=== PATIENT | male | born 1945 | race Caucasian/White ===

== ENCOUNTER 2018-06-19 14:10 | Inpatient (IN) | payer MEDICARE, OTHER ==
[2018-06-14 10:48] VITALS: BP 136/74
--- NOTE | 2018-06-14 11:25 | PCM.EKG ---
[facility] Test Date: 2018-06-14 Test Time: 11:15:49 Pat Name: THEA ARTIS Department: Room: Gender: M Con[place] Operator: AWLVN : 1945 Requested By: ANA CRISTINA ADAN Order Number: [id number] Reading MD: Hayden Sheffield Measurements Intervals [place] Rate: 62 P: 50 [place]: 188 QRS: 37 QRSD: 78 T: 39 QT: 364 QTc: 369 Interpretive Statements Normal sinus rhythm Normal ECG Compared to ECG 01/23/2018 10:43:03 No significant changes Electronically Signed On 06-14-2018 13:48:29 LOCK PLATER by Hayden Sheffield Please click the below link to view image of tracing.
[2018-06-14 12:21] LABS: BASOPHIL % 0.3 % (0.0-0.2); BILIRUBIN,URINE NEGATIVE (NEGATIVE); EOSINOPHIL # 0.1 10^3/uL (0.0-0.2); EOSINOPHIL % 1.6 % (0.0-5.0); LYMPHOCYTES # 1.4 10^3/uL (1.0-4.8); LYMPHOCYTES % 19.9 % (24.0-44.0); MEAN CELL HGB 30.9 pg (26-34); MEAN CELL HGB CONCENTRATION 34.2 g/dL (33-37); MEAN CORP VOLUME 90.3 fL (78-100); MEAN PLATELET VOLUME 10.4 fL (7.8-11.0); MONOCYTES # 0.8 10^3/uL (0.3-0.8); MONOCYTES % 10.9 % (5.0-12.0); NEUTROPHIL # 4.6 10^3/uL (1.8-7.7); NEUTROPHILS % 67.2 % (41.0-85.0); RED CELL DISTRIBUTION WIDTH 13.3 % (11.5-14.5); UROBILINOGEN,URINE NORMAL (NEGATIVE); WHITE BLOOD CELL 6.9 10^3/uL (4.5-11.0)
[2018-06-14 12:22] LABS: APPEARANCE,URINE CLEAR (CLEAR); UA COLOR YELLOW (YELLOW)
[2018-06-14 12:36] LABS: CALCIUM 8.5 mg/dL (8.4-10.5); CARBON DIOXIDE 24.9 mmol/L (20.0-32)
[~2018-06-19] VITALS: Ht 175.3 cm; Wt 96.2 kg
[2018-06-19] VITALS (10 sets, daily range): BP systolic 135–196; BP diastolic 74–107
[2018-06-19] MEDS: LACTATED RINGERS 1,000 ML IV SCH (12:26)
[2018-06-19] MEDS: TYLENOL PO SCH ×2 (13:00→21:08)
[~2018-06-19 14:10] MED LIST: ANCEF ONE; DECADRON ONE; DILAUDID ONE; DIPRIVAN IV ONE; HYDR12.53 PO; IBUP200C8 PO; LIDOCAINE 2% VIAL ONE; LISI-414 PO; METR45CR2 TP; MONT10TA6 PO; NAROPIN 0.2% 40 MG/20 ML VIAL ONE; NEOSTIGMINE ONE; NEURONTIN ONE; NS 100ML 100 ML IV ONE; NS 250ML 250 ML IV ONE; NS 3000ML IRR IR ONE; PANT40TA3 PO; PRECEDEX IV ONE; SENSORCAINE 0.5% VIAL ONE; SODIUM CHLORIDE IR ONE; TORADOL ONE; TRANEXAMIC ACID IV ONE; TYLENOL PO ONE; TYLENOL PO SCH; ZEMURON IV ONE; ZOFRAN ONE
[2018-06-19] MEDS ORDERED: DUONEB 0.5 MG-3 MG/3 ML SOLN IH ONE (16:29)
[2018-06-19] MEDS ORDERED: DUONEB 0.5 MG-3 MG/3 ML SOLN IH STA (16:49)
[2018-06-19] MEDS ORDERED: CEPACOL SORE THROAT LOZENGE MM PRN (17:00)
[2018-06-19] MEDS ORDERED: SUBLIMAZE IV PRN (17:00)
[2018-06-19] MEDS ORDERED: TRANDATE IV PRN (17:00)
[2018-06-19] MEDS ORDERED: PHENERGAN IV PRN (17:00)
[2018-06-19] MEDS ORDERED: ZOFRAN IV PRN (17:00)
[2018-06-19] MEDS ORDERED: VENTOLIN IH PRN ×2 (17:00→20:00)
[2018-06-19] MEDS ORDERED: DILAUDID IV PRN ×2 (17:00)
[2018-06-19] MEDS ORDERED: LACTATED RINGERS 1,000 ML IV SCH (17:00)
[2018-06-19] MEDS ORDERED: BENADRYL IV PRN (17:00)
[2018-06-19] MEDS ORDERED: TRANDATE IV ONE (17:08)
--- NOTE | 2018-06-19 17:45 | NUR ---
ARRIVAL PT ARRIVED TO UNIT VIA BED, NO S/S OF DISTRESS NOTED. SPECIAL V/S STARTED. REPORT RECEIVED FROM SANDRA DESAI. ASSUMED CARE OF PT. CALL LIGHT WITHIN REACH. BED LOCKED AND LOW POSITION. FAMILY AT BEDSIDE. WILL CONT TO MONITOR.
[2018-06-19] MEDS: ULTRAM PO SCH (17:54)
--- NOTE | 2018-06-19 18:56 | DIREP ---
PROCEDURE:XRAY KNEE 2 VWS-RT COMPARISON:None. INDICATIONS:POST TOTAL RIGHT KNEE FINDINGS: BONES:Normal. JOINTS:Right knee arthroplasty. SOFT TISSUES:Skin andrew and subcutaneous emphysema. OTHER:Overlying bandage or brace. CONCLUSION:Right knee arthroplasty, reveals anatomic alignment and position. Dictated by: Humphrey Husain M.D. on 06/19/2018 at 06:50 PM
--- NOTE | 2018-06-19 19:22 | HPH ---
ADMIT DATE: 06/19/2018 CHIEF COMPLAINT: Painful right knee. HISTORY OF PRESENT ILLNESS: A 72-year-old male with a several year history of pain about the right knee secondary to osteoarthritis. He is no better with Motrin, multiple cortisone injections, Synvisc injections. He complains of pain with just household ambulation as well as locking and giving away about the knee. He cannot pursue some of his recreational activities such as hunting or walking for exercise because of severe pain about the right knee. MEDICATIONS: Include lisinopril 5 mg once a day, hydrochlorothiazide 12.5 mg once a day. Montelukast sodium 10 mg once a day. PAST MEDICAL HISTORY: Include hypertension. PAST SURGICAL HISTORY: Back surgery, cholecystectomy, prostatectomy, second back surgery in 2018. ALLERGIES: The patient has no known drug allergies. FAMILY HISTORY: Positive for Parkinson's. The patient's medical problems include hypertension. SOCIAL HISTORY: He is , lives in [place], does not drink, but he dips snuff. PHYSICAL EXAMINATION: GENERAL: Today shows that he is 5 feet 5 inches, weighs 200 pounds, healthy 72-year-old male, in no acute distress. HEENT: Within normal limits for his age. CHEST: Clear to auscultation. HEART: Regular rate and rhythm. No murmur. ABDOMEN: Soft, nontender, good bowel sounds. EXTREMITIES: Right knee has a 1+ effusion. He lacks 10 degrees of full extension and has 120 degrees of flexion. He has got good medial and lateral collateral ligament stability. NEUROLOGICAL: He is awake and alert. He is oriented x 3. His cranial nerves 2-12 are grossly intact. He has a preexisting right drop foot from previous back surgery. IMAGING STUDIES: His x-rays show that he has severe tcen-nq-iatk tricompartmental osteoarthritis about the right knee. ASSESSMENT: Osteoarthritis, right knee. Other diagnoses include hypertension and right foot drop. PLAN: The patient is being admitted for right total knee arthroplasty. The risks and hazards of the procedure have been reviewed with the patient. He understands risk involved and wants to proceed as planned. Chris Kang MD DR: MERLY/sarah JOB# [id number]
[2018-06-19] MEDS ORDERED: S-2 IH ONE (20:55)
[2018-06-19] MEDS ORDERED: S-2 IH STA (20:56)
[2018-06-19] MEDS ORDERED: TUMS ONE (20:59)
[2018-06-19] MEDS ORDERED: CELEBREX PO SCH (21:00)
[2018-06-19] MEDS: CELEBREX PO SCH (21:00)
[2018-06-19] MEDS: ULTRAM PO PRN (21:08)
[2018-06-19] MEDS: PROTONIX PO SCH (21:13)
[2018-06-19 21:15] LABS: HEMOGLOBIN 14.7 g/dL (13.9-16.3); MEAN CELL HGB 30.8 pg (26-34); MEAN CELL HGB CONCENTRATION 33.8 g/dL (33-37); MEAN CORP VOLUME 91.2 fL (78-100); MEAN PLATELET VOLUME 9.4 fL (7.8-11.0); RED CELL DISTRIBUTION WIDTH 13.2 % (11.5-14.5); WHITE BLOOD CELL 15.1 10^3/uL (4.5-11.0)
[2018-06-20 00:15] VITALS: BP 125/79
--- NOTE | 2018-06-20 01:29 | OPH ---
DATE OF SURGERY: 06/19/2018 PREOPERATIVE DIAGNOSIS: Osteoarthritis of the right knee. POSTOPERATIVE DIAGNOSIS: Osteoarthritis of the right knee. OPERATIVE PROCEDURE: Right total knee arthroplasty using Medacta Sphere knee, size 5 femur, size 5 tibia, 10 mm insert. All components were cemented. SURGEON: Chris Kang MD ANESTHESIA: General endotracheal. TOURNIQUET TIME: 62 minutes at 300 mmHg. BLOOD LOSS: 400 mL. DESCRIPTIVE INDICATIONS: The patient is a 72-year-old male, OA about the right knee, has failed conservative treatment including home exercises, bracing, anti-inflammatories, cortisone injections, Synvisc injections. He complains of locking about the knee as well as severe pain with just household ambulation. The x-rays show he has oply-xo-cyiq tricompartmentally about the right knee. DESCRIPTION OF PROCEDURE: The patient was placed on the operating table in the supine position. A general endotracheal anesthetic was induced without difficulty. Right lower extremity was padded and a tourniquet was applied. Right lower extremity was then sterilely prepped and draped. The leg was exsanguinated with an Esmarch and then the tourniquet was inflated to 300 mmHg. Knee was flexed to 90 degrees. An anterior incision was made. Full thickness flaps were developed medially and laterally and then a medial parapatellar arthrotomy was performed. The patella was deviated laterally. The medial and lateral meniscectomies were performed as well as removing anterior and posterior cruciate ligaments. The patient had the capsule and the MCL released around the posterior medial corner. The patient then had the mini femoral cutting guide placed about the distal femur. It was held into position with multiple pins. The distal femoral cut was made with the power saw. The patient then had the #2 ____ placed about the distal femur and held into position with multiple screws and pins. The anterior and posterior femoral cuts as well as the chamfer cuts were made. The patient had the tibia subluxed anteriorly. Medial and lateral meniscectomies were completed. The mini tibial cutting guide was placed about the proximal tibia and held into position with multiple pins. Tibial cut was then made with the power saw. The tibia was sized, it measured a size 5. The trial tibial component was held into position with multiple pins. Central drill hole was made and then we used the cruciate punch to stabilize the tibial trial component. The patient had a trial reduction done with a 5 femur, a 5 tibia, 10 mm insert. The knee went out into full extension. He had 120 degrees of flexion. There was excellent medial and lateral stability throughout and excellent tracking of the patella. The patella was everted. The osteophytes around the peripheral edges were trimmed. Peripheral edges were then cauterized. The final, medial, and lateral femoral drill holes were made. The femoral sulcus cut was made. The trial components were then all removed. The bone ends were copiously irrigated and dried and then a size 5 tibial component was cemented. A 10 mm insert was impacted into position and secured with an anterior screw. The size 5 femoral component was cemented. Once all the cement had hardened and excess cement was removed, then the tourniquet was released, the bleeding was controlled with the Aquamantys device. The capsule was closed with #2 PDS in interrupted bbehgn-ca-yzkhd manner. Subcutaneous was closed with running 2-0 Monocryl barbed. Skin was closed with andrew and an Aquacel dressing was applied, reinforced with 4 x 4's, cast padding, and Luke wrap. The patient was extubated in the operating room, sent to recovery in stable condition. Chris Kang MD DR: MERLY/sarah JOB# [id number]
[2018-06-20] MEDS: TYLENOL PO SCH ×4 (03:01→20:11)
[2018-06-20] MEDS: LACTATED RINGERS 1,000 ML IV SCH (03:02)
[2018-06-20] MEDS: DUONEB 0.5 MG-3 MG/3 ML SOLN IH SCH ×4 (03:18→21:28)
[2018-06-20] MEDS: ULTRAM PO SCH ×6 (04:00→20:00)
[2018-06-20 05:35] VITALS: BP 135/78
[2018-06-20 05:48] LABS: HEMOGLOBIN 13.2 g/dL (13.9-16.3); MEAN CELL HGB 30.5 pg (26-34); MEAN CELL HGB CONCENTRATION 33.4 g/dL (33-37); MEAN CORP VOLUME 91.2 fL (78-100); MEAN PLATELET VOLUME 9.8 fL (7.8-11.0); RED CELL DISTRIBUTION WIDTH 13.2 % (11.5-14.5); WHITE BLOOD CELL 12.6 10^3/uL (4.5-11.0)
[2018-06-20] MEDS: ULTRAM PO PRN ×2 (06:23→20:11)
--- NOTE | 2018-06-20 06:35 | NUR ---
STATUS URINE OUTPUT FOUND TO BE ONLY 250 THROUGHOUT THE NIGHT. 623ML FOUND TO BE IN BLADDER VIA BLADDER SCANNER. DR BRADSHAW NOTIFIED. PT REQUESTS TO NOT HAVE CATHETER PUT IN. DR BRADSHAW STATED HE WOULD ORDER FLOMAX.
--- NOTE | 2018-06-20 06:35 | PRM.CONS ---
Consultation Reason for Consult: Reason for Consultation: Medical management of HTN History of Present Illness History of Patient Comments Patient is a 72 M PMH of BPH, HTN, OA, Spinal Stenosis, and Polio (childhood) admitted following R TKA with Dr. Kang (Orthopedic Surgery). Medicine team consulted for medical management of comorbidities. Patient seen last night upon arrival to the floor and was having stridor/upper airway constriction 2/2 intubation for procedure. Patient was satting adequately. Patient given racemic epinephrine and Nebs for symptoms with improvement. He is very hoarse this morning but feels better. Patient hx/labs/imaging reviewed. Medications reconciled. Patient has poor urine output. Bladder scan shows over 600cc of fluid in bladder and last void just 50cc. Patient offered best but refused. Patient has no other complaints. Pain is controlled. Past Medical History 1. HTN 2. BPH 3. OA 4. Spnial Stenosis 5. Polio (child) Past Surgical History 1. R TKA 2. Back surgery for Spinal Stenosis 3. Prostate surgery 4. Tracheostomy 5. Cholecystectomy Family History: noncontributory Social History: uses smokeless tobacco, former smoker. no alcohol, no drug use. Review of Systems Constitutional: No: Fever, Chills Eyes: No: Vision change, Conjunctivae inflammation, Eyelid inflammation ENT: Other (hoarseness); No: Nose discharge, Nose congestion Respiratory: Cough, Wheezing; No: Shortness of breath, SOB with excertion Cardiovascular: No: Chest Pain, Palpitations, Edema Gastrointestinal: No: Nausea, Vomiting, Abdominal Pain, Diarrhea, Constipation Genitourinary: No Hematuria; Retention Musculoskeletal: No: neck pain, back pain Skin: No: Rash, Lesions, Jaundice, Bruising Neurological: No: Weakness, Numbness, Incoordination, Change in speech, Confusion, Seizures Allergies: Coded Allergies: No Known Allergies (Unverified , 06/14/18) Scheduled Hydrochlorothiazide (Hydrochlorothiazide), 1 CAP PO DAILY, (Reported) Lisinopril (Lisinopril), 1 TAB PO DAILY, (Reported) Metronidazole (Metrocream), 1 APPLIC TP BID, (Reported) Montelukast Sodium (Singulair), 1 TAB PO DAILY, (Reported) Scheduled PRN Ibuprofen (Advil), 600 MG PO BID PRN for PAIN, (Reported) Pantoprazole Sodium (Protonix), 1 TAB PO DAILY PRN for INDIGESTION, (Reported) VTE VTE Risk Total Score: >5 VTE Risk Score VTE Risk: Score 0-1 = Low Risk (Aggressive mobilization; early ambulation; no VTE prophylaxis required) Score 2: Moderate Risk (Intermittent/Pneumatic Compression Device OR Lovenox/Heparin/Coumadin) Score 3-4: High Risk (Intermittent/Pneumatic Compression Device AND Lovenox/Heparin/Coumadin) Score > or =5: Highest Risk (Intermittent/Pneumatic Compression Device AND Lovenox/Heparin/Coumadin) Assessment/Plan Assessment/Plan Assessment/Plan Patient is a 72 M PMH of BPH, HTN, OA, Spinal Stenosis, and Polio (childhood) admitted following R TKA with Dr. Kang (Orthopedic Surgery). Patient History: Alzheimer's disease 33 FATHER, , Age:87 Asthma V19 CHILD Hypertension 32 MOTHER, , Age:89 No known health problems G8 SISTER V19 CHILD V19 CHILD Parkinson's disease 33 FATHER, , Age:87 No Family History of: Cerebrovascular disorder Chronic obstructive pulmonary disease Congestive heart failure Diabetes insipidus Diabetes mellitus Plan 1. OA R knee: s/p TKA. Ortho managing, cont pain control and PT. 2. HTN: cont HCTZ/DIANA 3. BPH: will start flomax 4. COPD: cont Nebs, O2 support 5. PPx: PPI, Xarelto 6. Laryngeal irritation: 2/2 intubation and hx of Tracheostomy. Racemic epi ordered last night x 1. Cont nebs. O2 support SHELBI BRADSHAW MD Jun 20, 2018 06:35
--- NOTE | 2018-06-20 06:41 | NUR ---
REPORT REPORT RECEIVED FROM RUSTY DESAI ASSUMED CARE OF PT
[2018-06-20 07:04] VITALS: BP 151/87
[2018-06-20] MEDS: PROTONIX PO SCH (10:30)
[2018-06-20] MEDS: FLOMAX PO SCH (10:30)
[2018-06-20] MEDS: XARELTO PO SCH (10:30)
[2018-06-20] MEDS: HYDROCHLOROTHIAZIDE PO SCH (10:30)
[2018-06-20] MEDS: COLACE PO SCH (10:30)
[2018-06-20] MEDS: ZESTRIL PO SCH (10:31)
[2018-06-20] MEDS: SINGULAIR PO SCH (10:31)
[2018-06-20] MEDS: PEPCID PO SCH (10:31)
[2018-06-20] MEDS: CELEBREX PO SCH ×2 (10:32→20:10)
--- NOTE | 2018-06-20 11:16 | NUR ---
DISCHARGE PLAN CM VISITED WITH PATIENT AND SPOUSE REGARDING DISCHARGE PLAN. PATIENT STATED HE WAS PREVIOUSLY INDEPENDENT OF ADLS AND THAT HE STILL DRIVES. HE DOES LIVE AT HOME WITH HIS SPOUSE. HE DOES HAVE DME INCLUDING A SHOWER CHAIR AND HAS GRAB BARS IN HIS SHOWER. ORDER FOR WALKER WAS SENT TO [facility]. PATIENT STATED THAT IF HE NEEDS THERAPY HE WOULD LIKE TO GO TO [facility]. REFERRAL WAS SENT TO [facility] PATIENT DENIES ANY OTHER NEEDS OR RESOURCES AT THIS TIME. HE SAID I DON'T THING I NEED HOME HEALTH. DISCAHRGE GOAL IS FOR PT TO D/C HOME WITH SPOUSE AND OP-PT AT [facility]. CM WILL CONTINUE TO FOLLOW NEEDS.
--- NOTE | 2018-06-20 11:36 | NUR ---
Anesthesia Post Op Mr Brown had a Right TKA with a Right Femoral, Adductor Canal and a Right IPAK block. I visited with him and he rates his pain at a 0. He said he had issues earlier with ambulation and a weak right knee but he had his procedure very late in the day yesterday. The injection sites are under the dressing but offer no evidence of any infection. No apparent post anesthetic or post block sequelae noted.
[2018-06-20 11:51] VITALS: BP 136/81
[2018-06-20] MEDS ORDERED: NEURONTIN PO SCH (13:00)
[2018-06-20] MEDS ORDERED: NEURONTIN ONE (14:46)
[2018-06-20 17:25] VITALS: BP 143/74
--- NOTE | 2018-06-20 17:57 | NUR ---
STATUS PT REQUESTING MORE ULTRAM. DR ADAN NOTIFIED. ORDER RECEIVED FOR 50MG TRAMADOL PO OT AND STATES, "HE CAN HAVE 100MG PO TRAMADOL IN 2 HOURS."
[2018-06-20] MEDS ORDERED: ULTRAM PO ONE (18:00)
[2018-06-20 19:56] VITALS: BP 130/71
[2018-06-21] MEDS: ULTRAM PO PRN ×6 (00:09→21:04)
[2018-06-21 00:20] VITALS: BP 118/72
[2018-06-21] MEDS: TYLENOL PO SCH ×4 (01:00→19:00)
[2018-06-21] MEDS: ULTRAM PO SCH ×6 (04:00→20:00)
[2018-06-21 05:25] VITALS: BP 129/76
[2018-06-21] MEDS: DUONEB 0.5 MG-3 MG/3 ML SOLN IH SCH ×4 (05:30→20:08)
[2018-06-21 05:42] LABS: HEMOGLOBIN 12.2 g/dL (13.9-16.3); MEAN CELL HGB 30.5 pg (26-34); MEAN CELL HGB CONCENTRATION 33.4 g/dL (33-37); MEAN CORP VOLUME 91.3 fL (78-100); MEAN PLATELET VOLUME 9.7 fL (7.8-11.0); WHITE BLOOD CELL 8.6 10^3/uL (4.5-11.0)
[2018-06-21 05:44] LABS: CALCIUM 9.1 mg/dL (8.4-10.5); CARBON DIOXIDE 28.6 mmol/L (20.0-32)
[2018-06-21 08:00] VITALS: BP 117/65
[2018-06-21] MEDS: HYDROCHLOROTHIAZIDE PO SCH (08:21)
[2018-06-21] MEDS: FLOMAX PO SCH (08:21)
[2018-06-21] MEDS: XARELTO PO SCH (08:21)
[2018-06-21] MEDS: COLACE PO SCH (08:21)
[2018-06-21] MEDS: ZESTRIL PO SCH (08:22)
[2018-06-21] MEDS: SINGULAIR PO SCH (08:22)
[2018-06-21] MEDS: PROTONIX PO SCH (08:22)
[2018-06-21] MEDS: PEPCID PO SCH (08:22)
[2018-06-21] MEDS: CELEBREX PO SCH ×2 (08:23→21:04)
--- NOTE | 2018-06-21 08:54 | PRM.PN ---
Subjective Subjective Date: Jun 21, 2018 Time: 08:53 Subjective Awake and alert Pain ok Afebrile VSS HGB 13.2 Cont with PT More pain today VSS Afebrile Hgb 12.2 postop anemia from surgery expected Cont with PT Patient History: Alzheimer's disease 33 FATHER, , Age:87 Asthma V19 CHILD Hypertension 32 MOTHER, , Age:89 No known health problems G8 SISTER V19 CHILD V19 CHILD Parkinson's disease 33 FATHER, , Age:87 No Family History of: Cerebrovascular disorder Chronic obstructive pulmonary disease Congestive heart failure Diabetes insipidus Diabetes mellitus VTE VTE Risk Total Score: >5 VTE Risk Score VTE Risk: Score 0-1 = Low Risk (Aggressive mobilization; early ambulation; no VTE prophylaxis required) Score 2: Moderate Risk (Intermittent/Pneumatic Compression Device OR Lovenox/Heparin/Coumadin) Score 3-4: High Risk (Intermittent/Pneumatic Compression Device AND Lovenox/Heparin/Coumadin) Score > or =5: Highest Risk (Intermittent/Pneumatic Compression Device AND Lovenox/Heparin/Coumadin) Review of Systems Constitutional: No: Fever, Chills Eyes: No: Vision change, Conjunctivae inflammation, Eyelid inflammation ENT: Other (hoarseness); No: Nose discharge, Nose congestion Respiratory: Cough, Wheezing; No: Shortness of breath, SOB with excertion Cardiovascular: No: Chest Pain, Palpitations, Edema Gastrointestinal: No: Nausea, Vomiting, Abdominal Pain, Diarrhea, Constipation Genitourinary: No Hematuria; Retention Musculoskeletal: No: neck pain, back pain Skin: No: Rash, Lesions, Jaundice, Bruising Neurological: No: Weakness, Numbness, Incoordination, Change in speech, Confusion, Seizures Allergies: Coded Allergies: No Known Allergies (Unverified , 06/14/18) Scheduled Hydrochlorothiazide (Hydrochlorothiazide), 1 CAP PO DAILY, (Reported) Lisinopril (Lisinopril), 1 TAB PO DAILY, (Reported) Metronidazole (Metrocream), 1 APPLIC TP BID, (Reported) Montelukast Sodium (Singulair), 1 TAB PO DAILY, (Reported) Scheduled PRN Ibuprofen (Advil), 600 MG PO BID PRN for PAIN, (Reported) Pantoprazole Sodium (Protonix), 1 TAB PO DAILY PRN for INDIGESTION, (Reported) Objective Vitals and I/O Vital Sign - Last 24 Hours 06/19/18 06/19/18 06/19/18 06/19/18 12:10 12:10 12:58 13:04 Temp 98.6 98.6 Pulse 93 73 73 Resp 16 18 16 B/P (MAP) 140/81 (100) 145/86 (105) 135/74 (94) Pulse Ox 95 97 98 O2 Delivery Room Air Room Air Nasal Canula Nasal Canula O2 Flow Rate 2 2 06/19/18 06/19/18 06/19/18 06/19/18 16:22 16:22 16:32 16:37 Temp 98.3 98.6 98.3 98.6 Pulse 83 83 88 Resp 18 18 18 B/P (MAP) 149/90 (109) 182/96 (124) Pulse Ox 100 100 100 O2 Delivery Non-Rebreather Non-Rebreather O2 Flow Rate 10 10 5 06/19/18 06/19/18 06/19/18 06/19/18 16:52 16:53 17:07 17:22 Temp 98.5 97.9 98.0 98.5 97.9 98.0 Pulse 91 87 89 78 Resp 18 18 18 18 B/P (MAP) 185/93 (123) 196/107 (136) 169/95 (119) Pulse Ox 99 100 99 98 O2 Delivery Non-Rebreather Nasal Canula Nasal Canula O2 Flow Rate 5 3 2 06/19/18 06/19/18 06/19/18 06/19/18 17:45 18:01 18:36 20:00 Temp 97.5 97.9 97.5 97.9 Pulse 77 63 Resp 18 22 B/P (MAP) 144/91 (108) 147/85 (105) Pulse Ox 99 98 99 O2 Delivery Nasal Canula Nasal Cannula Nasal Canula O2 Flow Rate 2 2.00 2.00 06/19/18 06/19/18 06/19/18 06/20/18 21:06 21:07 21:07 00:15 Temp 98.2 98.2 Pulse 98 92 61 Resp 18 22 B/P (MAP) 125/79 (94) Pulse Ox 97 98 95 O2 Delivery Nasal Cannula Nasal Canula O2 Flow Rate 2.00 2.00 2/12/19 06/20/18 06/20/18 06/20/18 02:33 03:19 03:19 05:35 Temp 98.6 98.6 Pulse 56 59 62 Resp 18 16 22 B/P (MAP) 135/78 (97) Pulse Ox 93 98 95 O2 Delivery Nasal Cannula Nasal Canula O2 Flow Rate 2.00 2.00 06/20/18 06/20/18 06/20/18 06/20/18 07:04 09:53 09:55 09:56 Temp 97.7 97.7 Pulse 70 68 70 67 Resp 20 12 20 12 B/P (MAP) 151/87 (108) Pulse Ox 96 97 96 97 O2 Delivery Room Air Room Air FiO2 21 06/20/18 06/20/18 06/20/18 10:30 10:31 10:36 B/P (MAP) 151/87 151/87 O2 Delivery Room Air Intake and Output 06/19/18 06/19/18 06/20/18 15:00 23:00 07:00 Intake Total 500 ml 5772 ml 500 ml Output Total 250 ml Balance 500 ml 5772 ml 250 ml All Results(Lab/Rad) Laboratory Tests Test 06/19/18 21:10 06/20/18 05:00 White Blood Count 15.1 10^3/uL 12.6 10^3/uL Red Blood Count 4.77 10^6/uL 4.33 10^6/uL Hemoglobin 14.7 g/dL 13.2 g/dL Hematocrit 43.5 % 39.5 % Mean Corpuscular Volume 91.2 fL 91.2 fL Mean Corpuscular Hemoglobin 30.8 pg 30.5 pg Mean Corpuscular Hemoglobin Concent 33.8 g/dL 33.4 g/dL Red Cell Distribution Width 13.2 % 13.2 % Platelet Count 195 10^3/uL 195 10^3/uL Mean Platelet Volume 9.4 fL 9.8 fL Current Medications Medications (Trade) Dose Ordered Sig/Sophy Route PRN Reason Start Time Stop Time Status Last Admin Dose Admin Sodium Chloride 250 ml @ ud STK-MED ONCE IV 06/19/18 05:32 06/19/18 05:35 DC Cefazolin Sodium (Ancef) 1 gm STK-MED ONCE .ROUTE 06/19/18 05:32 06/19/18 05:36 DC Neostigmine Methylsulfate (Neostigmine) 10 mg STK-MED ONCE .ROUTE 06/19/18 06:49 06/19/18 06:52 DC Ondansetron HCl (Zofran) 4 mg STK-MED ONCE .ROUTE 06/19/18 06:49 06/19/18 06:52 DC Ketorolac Tromethamine (Toradol) 30 mg STK-MED ONCE .ROUTE 06/19/18 06:49 06/19/18 06:52 DC Rocuronium [place] (Zemuron) 100 mg STK-MED ONCE IV 06/19/18 06:49 06/19/18 06:52 DC Hydromorphone HCl (Dilaudid) 2 mg STK-MED ONCE .ROUTE 06/19/18 06:49 06/19/18 06:52 DC Propofol (Diprivan) 200 mg STK-MED ONCE IV 06/19/18 06:49 06/19/18 06:52 DC Dexamethasone Sodium Phosphate (Decadron) 20 mg STK-MED ONCE .ROUTE 06/19/18 06:50 06/19/18 06:53 DC Bupivacaine HCl (Sensorcaine 0.5% Vial) 5 mg STK-MED ONCE .ROUTE 06/19/18 06:50 06/19/18 06:53 DC Ropivacaine (Naropin 0.2% 40 Mg/20 ml Vial) 2 mg STK-MED ONCE .ROUTE 06/19/18 06:50 06/19/18 06:53 DC Lidocaine HCl (Lidocaine 2% Vial) 500 mg STK-MED ONCE .ROUTE 06/19/18 06:50 06/19/18 06:54 DC Dexmedetomidine HCl (Precedex) 200 mcg STK-MED ONCE IV 06/19/18 06:50 06/19/18 06:54 DC Tranexamic Acid (Tranexamic Acid) 1,000 mg STK-MED ONCE IV 06/19/18 07:24 06/19/18 07:27 DC Sodium Chloride (Sodium Chloride) 1,000 ml STK-MED ONCE IR 06/19/18 09:59 06/19/18 10:02 DC Sodium Chloride 100 ml @ ud STK-MED ONCE IV 06/19/18 09:59 06/19/18 10:02 DC Sodium Chloride 250 ml @ ud STK-MED ONCE IV 06/19/18 09:59 06/19/18 10:02 DC Sodium Chloride (NS 3000ml Irr) 3,000 ml STK-MED ONCE IR 06/19/18 09:59 06/19/18 10:02 DC Acetaminophen (Tylenol) 500 mg STK-MED ONCE PO 06/19/18 12:37 06/19/18 12:41 DC Gabapentin (Neurontin) 400 mg STK-MED ONCE .ROUTE 06/19/18 12:37 06/19/18 12:41 DC Acetaminophen (Tylenol) 1,000 mg OT PO 06/19/18 13:00 06/19/18 20:53 DC 06/19/18 12:49 Acetaminophen (Tylenol) 1,000 mg Q6H PO 06/19/18 13:00 07/19/18 12:59 06/20/18 03:01 Celecoxib (Celebrex) 200 mg Q12HR PO 06/19/18 21:00 06/19/18 21:00 DC Gabapentin (Neurontin) 400 mg Q24HRS PO 06/20/18 13:00 06/20/18 13:01 Sodium Chloride (Sodium Chloride) 1,000 ml STK-MED ONCE IR 06/19/18 13:25 06/19/18 13:28 DC Sodium Chloride 250 ml @ ud STK-MED ONCE IV 06/19/18 13:25 06/19/18 13:29 DC Sodium Chloride (NS 3000ml Irr) 3,000 ml STK-MED ONCE IR 06/19/18 13:25 06/19/18 13:29 DC Sodium Chloride 100 ml @ ud STK-MED ONCE IV 06/19/18 13:26 06/19/18 13:29 DC Albuterol/ Ipratropium (Duoneb 0.5 Mg-3 Mg/3 ml Soln) 3 ml STK-MED ONCE IH 06/19/18 16:29 06/19/18 16:32 DC Hydromorphone HCl (Dilaudid) 0.2 mg Q5MIN PRN IV PAIN MILD 06/19/18 17:00 06/20/18 08:26 DC 06/19/18 16:48 Fentanyl Citrate (Sublimaze) 12.5 mcg Q5MIN PRN IV PAIN 06/19/18 17:00 06/20/18 16:59 Ondansetron HCl (Zofran) 4 mg PRN PRN IV nv 06/19/18 17:00 06/19/18 20:57 DC Promethazine HCl (Phenergan) 6.25 mg PRN PRN IV NAUSEA / VOMITING 06/19/18 17:00 06/19/18 20:56 DC Diphenhydramine HCl (Benadryl) 25 mg Q5MIN PRN IV NAUSEA / VOMITING 06/19/18 17:00 06/19/18 20:56 DC Albuterol Sulfate (Ventolin) 2.5 mg OT PRN IH WHEEZING 06/19/18 17:00 06/19/18 20:54 DC Labetalol HCl (Trandate) 5 mg Q5MIN PRN IV HYPERTENSION 06/19/18 17:00 07/19/18 16:59 06/19/18 17:14 Tramadol HCl (Ultram) 50 mg Q4HR PO 06/19/18 20:00 07/19/18 19:59 06/20/18 10:32 Tramadol HCl (Ultram) 100 mg Q4HR PRN PO SEVERE PAIN 06/19/18 17:00 07/19/18 16:59 06/20/18 06:23 Rivaroxaban (Xarelto) 10 mg DAILY PO 06/20/18 09:00 07/20/18 08:59 06/20/18 10:30 Docusate Sodium (Colace) 100 mg DAILY PO 06/20/18 09:00 07/20/18 08:59 06/20/18 10:30 Throat Lozenges (Cepacol Sore Throat Lozenge) 1 each PRN PRN MM SORE THROAT 06/19/18 17:00 07/19/18 16:59 Famotidine (Pepcid) 20 mg DAILY PO 06/20/18 09:00 07/20/18 08:59 06/20/18 10:31 Celecoxib (Celebrex) 200 mg BID PO 06/19/18 21:00 07/19/18 20:59 06/20/18 10:32 Hydromorphone HCl (Dilaudid) 3 mg Q4H PRN IV PAIN 8-10 06/19/18 17:00 07/19/18 16:59 Ondansetron HCl (Zofran) 4 mg Q4H PRN IV NAUSEA / VOMITING 06/19/18 17:00 07/19/18 16:59 Albuterol/ Ipratropium (Duoneb 0.5 Mg-3 Mg/3 ml Soln) 3 ml STAT STAT IH 06/19/18 16:49 06/19/18 20:51 DC 06/19/18 16:54 Labetalol HCl (Trandate) 20 mg STK-MED ONCE IV 06/19/18 17:08 06/19/18 17:11 DC Albuterol Sulfate (Ventolin) 2.5 mg RTQ4 PRN IH WHEEZING 06/19/18 20:00 07/19/18 19:59 Hydrochlorothiazide (Hydrochlorothiazide) 12.5 mg DAILY PO 06/20/18 09:00 07/20/18 08:59 06/20/18 10:30 Lisinopril (Zestril) 5 mg DAILY PO 06/20/18 09:00 07/20/18 08:59 06/20/18 10:31 Montelukast Sodium (Singulair) 10 mg DAILY PO 06/20/18 09:00 07/20/18 08:59 06/20/18 10:31 Pantoprazole Sodium (Protonix) 40 mg DAILY PO 06/19/18 21:00 07/19/18 20:59 06/20/18 10:30 Epinephrine (S-2) 1 each STAT STAT IH 06/19/18 20:56 06/19/18 20:58 DC 06/19/18 21:02 Albuterol/ Ipratropium (Duoneb 0.5 Mg-3 Mg/3 ml Soln) 3 ml RTQ6H IH 06/19/18 21:00 07/19/18 20:59 06/20/18 09:52 Epinephrine (S-2) 1 each STK-MED ONCE IH 06/19/18 20:55 06/19/18 20:59 DC Calcium Carbonate/ Glycine (Tums) 500 mg STK-MED ONCE .ROUTE 06/19/18 20:59 06/19/18 21:02 DC Tamsulosin HCl (Flomax) 0.4 mg DAILY PO 06/20/18 09:00 07/20/18 08:59 06/20/18 10:30 Course Sepsis Screening Results: Posi: NEGATIVE Sepsis Qualifier/Stage: NO DEFINITE RISK Duration or Total Time Spent w: 20 Vitals & review Data Vital Sign - Last 24 Hours 06/19/18 06/19/18 06/19/18 06/19/18 12:10 12:10 12:58 13:04 Temp 98.6 98.6 Pulse 93 73 73 Resp 16 18 16 B/P (MAP) 140/81 (100) 145/86 (105) 135/74 (94) Pulse Ox 95 97 98 O2 Delivery Room Air Room Air Nasal Canula Nasal Canula O2 Flow Rate 2 2 06/19/18 06/19/18 06/19/18 06/19/18 16:22 16:22 16:32 16:37 Temp 98.3 98.6 98.3 98.6 Pulse 83 83 88 Resp 18 18 18 B/P (MAP) 149/90 (109) 182/96 (124) Pulse Ox 100 100 100 O2 Delivery Non-Rebreather Non-Rebreather O2 Flow Rate 10 10 5 06/19/18 06/19/18 06/19/18 06/19/18 16:52 16:53 17:07 17:22 Temp 98.5 97.9 98.0 98.5 97.9 98.0 Pulse 91 87 89 78 Resp 18 18 18 18 B/P (MAP) 185/93 (123) 196/107 (136) 169/95 (119) Pulse Ox 99 100 99 98 O2 Delivery Non-Rebreather Nasal Canula Nasal Canula O2 Flow Rate 5 3 2 06/19/18 06/19/18 06/19/18 06/19/18 17:45 18:01 18:36 20:00 Temp 97.5 97.9 97.5 97.9 Pulse 77 63 Resp 17 18 22 B/P (MAP) 144/91 (108) 147/85 (105) Pulse Ox 99 98 99 O2 Delivery Nasal Canula Nasal Cannula Nasal Canula O2 Flow Rate 2 2.00 2.00 06/19/18 06/19/18 06/19/18 06/20/18 21:06 21:07 21:07 00:15 Temp 98.2 98.2 Pulse 98 92 61 Resp 18 18 22 B/P (MAP) 125/79 (94) Pulse Ox 97 98 95 O2 Delivery Nasal Cannula Nasal Canula O2 Flow Rate 2.00 2.00 06/20/18 06/20/18 06/20/18 06/20/18 02:33 03:19 03:19 05:35 Temp 98.6 98.6 Pulse 56 59 62 Resp 18 16 22 B/P (MAP) 135/78 (97) Pulse Ox 93 98 95 O2 Delivery Nasal Cannula Nasal Canula O2 Flow Rate 2.00 2.00 06/20/18 06/20/18 06/20/18 06/20/18 07:04 09:53 09:55 09:56 Temp 97.7 97.7 Pulse 70 68 70 67 Resp 20 12 20 12 B/P (MAP) 151/87 (108) Pulse Ox 96 97 96 97 O2 Delivery Room Air Room Air FiO2 21 06/20/18 06/20/18 06/20/18 10:30 10:31 10:36 B/P (MAP) 151/87 151/87 O2 Delivery Room Air Intake and Output 06/19/18 06/19/18 06/20/18 15:00 23:00 07:00 Intake Total 500 ml 5772 ml 500 ml Output Total 250 ml Balance 500 ml 5772 ml 250 ml Laboratory Tests Test 06/19/18 21:10 06/20/18 05:00 White Blood Count 15.1 10^3/uL 12.6 10^3/uL Red Blood Count 4.77 10^6/uL 4.33 10^6/uL Hemoglobin 14.7 g/dL 13.2 g/dL Hematocrit 43.5 % 39.5 % Mean Corpuscular Volume 91.2 fL 91.2 fL Mean Corpuscular Hemoglobin 30.8 pg 30.5 pg Mean Corpuscular Hemoglobin Concent 33.8 g/dL 33.4 g/dL Red Cell Distribution Width 13.2 % 13.2 % Platelet Count 195 10^3/uL 195 10^3/uL Mean Platelet Volume 9.4 fL 9.8 fL Current Medications Medications (Trade) Dose Ordered Sig/Sophy PRN Reason Start Time Stop Time Status Last Admin Acetaminophen (Tylenol) 1,000 mg Q6H 06/19/18 13:00 07/19/18 12:59 06/20/18 03:01 Albuterol Sulfate (Ventolin) 2.5 mg RTQ4 PRN WHEEZING 06/19/18 20:00 3/13/19 19:59 Albuterol/ Ipratropium (Duoneb 0.5 Mg-3 Mg/3 ml Soln) 3 ml RTQ6H 06/19/18 21:00 07/19/18 20:59 06/20/18 09:52 Celecoxib (Celebrex) 200 mg BID 06/19/18 21:00 07/19/18 20:59 06/20/18 10:32 Docusate Sodium (Colace) 100 mg DAILY 06/20/18 09:00 07/20/18 08:59 06/20/18 10:30 Famotidine (Pepcid) 20 mg DAILY 06/20/18 09:00 07/20/18 08:59 06/20/18 10:31 Fentanyl Citrate (Sublimaze) 12.5 mcg Q5MIN PRN PAIN 06/19/18 17:00 06/20/18 16:59 Gabapentin (Neurontin) 400 mg Q24HRS 06/20/18 13:00 06/20/18 13:01 Hydrochlorothiazide (Hydrochlorothiazide) 12.5 mg DAILY 06/20/18 09:00 07/20/18 08:59 06/20/18 10:30 Hydromorphone HCl (Dilaudid) 3 mg Q4H PRN PAIN 8-10 06/19/18 17:00 07/19/18 16:59 Labetalol HCl (Trandate) 5 mg Q5MIN PRN HYPERTENSION 06/19/18 17:00 07/19/18 16:59 06/19/18 17:14 Lisinopril (Zestril) 5 mg DAILY 06/20/18 09:00 07/20/18 08:59 06/20/18 10:31 Montelukast Sodium (Singulair) 10 mg DAILY 06/20/18 09:00 07/20/18 08:59 06/20/18 10:31 Ondansetron HCl (Zofran) 4 mg Q4H PRN NAUSEA / VOMITING 06/19/18 17:00 07/19/18 16:59 Pantoprazole Sodium (Protonix) 40 mg DAILY 06/19/18 21:00 07/19/18 20:59 06/20/18 10:30 Rivaroxaban (Xarelto) 10 mg DAILY 06/20/18 09:00 07/20/18 08:59 06/20/18 10:30 Tamsulosin HCl (Flomax) 0.4 mg DAILY 06/20/18 09:00 07/20/18 08:59 06/20/18 10:30 Throat Lozenges (Cepacol Sore Throat Lozenge) 1 each PRN PRN SORE THROAT 06/19/18 17:00 07/19/18 16:59 Tramadol HCl (Ultram) 50 mg Q4HR 06/19/18 20:00 07/19/18 19:59 06/20/18 10:32 Tramadol HCl (Ultram) 100 mg Q4HR PRN SEVERE PAIN 06/19/18 17:00 07/19/18 16:59 06/20/18 06:23 Sepsis Infection Criteria Pres: None LEVEL 1 SEPSIS INFECTION CRITE: Recent Invasive Procedure LEVEL 2-SIRS (LIST ALL THAT AP: RR>20/min O2 Sat by Pulse Oximetry: 98 Oxygen Flow Rate: 2.00 Assessment/Plan Assessment/Plan Assessment/Plan 1. OA R knee: s/p TKA. Ortho managing, cont pain control and PT. 2. HTN: cont HCTZ/DIANA 3. BPH: will start flomax 4. COPD: cont Nebs, O2 support 5. PPx: PPI, Xarelto 6. Laryngeal irritation: 2/2 intubation and hx of Tracheostomy. Racemic epi ordered last night x 1. Cont nebs. O2 support Plan 1. OA R knee: s/p TKA. Ortho managing, cont pain control and PT. 2. HTN: cont HCTZ/DIANA 3. BPH: will start flomax 4. COPD: cont Nebs, O2 support 5. PPx: PPI, Xarelto 6. Laryngeal irritation: 2/2 intubation and hx of Tracheostomy. Racemic epi ordered last night x 1. Cont nebs. O2 support ANA CRISTINA ADAN MD Jun 21, 2018 08:54
[2018-06-21] MEDS: LACTATED RINGERS 1,000 ML IV SCH (11:23)
[2018-06-21] MEDS ORDERED: ULTRAM ONE (11:26)
[2018-06-21] MEDS ORDERED: MUCINEX PO ONE (13:04)
[2018-06-21 14:30] VITALS: BP 126/72
[2018-06-21] MEDS: MUCOMYST HHN SCH ×2 (15:00→20:07)
--- NOTE | 2018-06-21 15:17 | NUR ---
MUCO NOT GIVEN AT THIS TIME DUE TO 1500 TX ALREADY GIVEN AND SHOULD BE GIVEN WITH DUONEB, WILL START WITH NEXT TX
[2018-06-21 16:28] VITALS: BP 121/65
--- NOTE | 2018-06-21 17:47 | PRM.PN ---
Subjective Subjective Date: Jun 21, 2018 Time: 17:44 Subjective feeling a little better. Good pain control. Tolerating oral intake. Working with physical therapy. Patient History: Alzheimer's disease 33 FATHER, , Age:87 Asthma V19 CHILD Hypertension 32 MOTHER, , Age:89 No known health problems G8 SISTER V19 CHILD V19 CHILD Parkinson's disease 33 FATHER, , Age:87 No Family History of: Cerebrovascular disorder Chronic obstructive pulmonary disease Congestive heart failure Diabetes insipidus Diabetes mellitus VTE VTE Risk Total Score: >5 VTE Risk Score VTE Risk: Score 0-1 = Low Risk (Aggressive mobilization; early ambulation; no VTE prophylaxis required) Score 2: Moderate Risk (Intermittent/Pneumatic Compression Device OR Lovenox/Heparin/Coumadin) Score 3-4: High Risk (Intermittent/Pneumatic Compression Device AND Lovenox/Heparin/Coumadin) Score > or =5: Highest Risk (Intermittent/Pneumatic Compression Device AND Lovenox/Heparin/Coumadin) Review of Systems Constitutional: No: Fever, Chills Eyes: No: Vision change, Conjunctivae inflammation, Eyelid inflammation ENT: Other (hoarseness); No: Nose discharge, Nose congestion Respiratory: Cough, Wheezing; No: Shortness of breath, SOB with excertion Cardiovascular: No: Chest Pain, Palpitations, Edema Gastrointestinal: No: Nausea, Vomiting, Abdominal Pain, Diarrhea, Constipation Genitourinary: No Hematuria; Retention Musculoskeletal: No: neck pain, back pain Skin: No: Rash, Lesions, Jaundice, Bruising Neurological: No: Weakness, Numbness, Incoordination, Change in speech, Confusion, Seizures Allergies: Coded Allergies: No Known Allergies (Unverified , 06/14/18) Scheduled Hydrochlorothiazide (Hydrochlorothiazide), 1 CAP PO DAILY, (Reported) Lisinopril (Lisinopril), 1 TAB PO DAILY, (Reported) Metronidazole (Metrocream), 1 APPLIC TP BID, (Reported) Montelukast Sodium (Singulair), 1 TAB PO DAILY, (Reported) Scheduled PRN Ibuprofen (Advil), 600 MG PO BID PRN for PAIN, (Reported) Pantoprazole Sodium (Protonix), 1 TAB PO DAILY PRN for INDIGESTION, (Reported) Objective Vitals and I/O Vital Sign - Last 24 Hours 06/19/18 06/19/18 06/19/18 2/11/19 12:10 12:10 12:58 13:04 Temp 98.6 98.6 Pulse 93 73 73 Resp 16 18 16 B/P (MAP) 140/81 (100) 145/86 (105) 135/74 (94) Pulse Ox 95 97 98 O2 Delivery Room Air Room Air Nasal Canula Nasal Canula O2 Flow Rate 2 2 06/19/18 06/19/18 06/19/18 06/19/18 16:22 16:22 16:32 16:37 Temp 98.3 98.6 98.3 98.6 Pulse 83 83 88 Resp 18 18 18 B/P (MAP) 149/90 (109) 182/96 (124) Pulse Ox 100 100 100 O2 Delivery Non-Rebreather Non-Rebreather O2 Flow Rate 10 10 5 06/19/18 06/19/18 06/19/18 06/19/18 16:52 16:53 17:07 17:22 Temp 98.5 97.9 98.0 98.5 97.9 98.0 Pulse 91 87 89 78 Resp 18 18 18 18 B/P (MAP) 185/93 (123) 196/107 (136) 169/95 (119) Pulse Ox 99 100 99 98 O2 Delivery Non-Rebreather Nasal Canula Nasal Canula O2 Flow Rate 5 3 2 06/19/18 06/19/18 06/19/18 06/19/18 17:45 18:01 18:36 20:00 Temp 97.5 97.9 97.5 97.9 Pulse 77 63 Resp 22 B/P (MAP) 144/91 (108) 147/85 (105) Pulse Ox 99 98 99 O2 Delivery Nasal Canula Nasal Cannula Nasal Canula O2 Flow Rate 2 2.00 2.00 06/19/18 06/19/18 06/19/18 06/20/18 21:06 21:07 21:07 00:15 Temp 98.2 98.2 Pulse 98 92 61 Resp 22 B/P (MAP) 125/79 (94) Pulse Ox 97 98 95 O2 Delivery Nasal Cannula Nasal Canula O2 Flow Rate 2.00 2.00 06/20/18 06/20/18 06/20/18 06/20/18 02:33 03:19 03:19 05:35 Temp 98.6 98.6 Pulse 56 59 62 Resp 18 16 22 B/P (MAP) 135/78 (97) Pulse Ox 93 98 95 O2 Delivery Nasal Cannula Nasal Canula O2 Flow Rate 2.00 2.00 06/20/18 06/20/18 06/20/18 06/20/18 07:04 09:53 09:55 09:56 Temp 97.7 97.7 Pulse 70 68 70 67 Resp 20 12 20 12 B/P (MAP) 151/87 (108) Pulse Ox 96 97 96 97 O2 Delivery Room Air Room Air FiO2 21 06/20/18 06/20/18 06/20/18 10:30 10:31 10:36 B/P (MAP) 151/87 151/87 O2 Delivery Room Air Intake and Output 06/19/18 06/19/18 06/20/18 15:00 23:00 07:00 Intake Total 500 ml 5772 ml 500 ml Output Total 250 ml Balance 500 ml 5772 ml 250 ml General: Alert, Oriented X3, Cooperative, No acute distress Neck: Supple, No JVD Lungs: Clear to auscultation Heart: Regular rate, Normal S1, Normal S2, No murmurs Abdomen: Normal bowel sounds, Soft, No tenderness, No masses Neuro: Normal gait, Normal speech, Strength at 5/5 X4 ext, Normal tone, Sensation intact All Results(Lab/Rad) Laboratory Tests Test 06/19/18 21:10 06/20/18 05:00 White Blood Count 15.1 10^3/uL 12.6 10^3/uL Red Blood Count 4.77 10^6/uL 4.33 10^6/uL Hemoglobin 14.7 g/dL 13.2 g/dL Hematocrit 43.5 % 39.5 % Mean Corpuscular Volume 91.2 fL 91.2 fL Mean Corpuscular Hemoglobin 30.8 pg 30.5 pg Mean Corpuscular Hemoglobin Concent 33.8 g/dL 33.4 g/dL Red Cell Distribution Width 13.2 % 13.2 % Platelet Count 195 10^3/uL 195 10^3/uL Mean Platelet Volume 9.4 fL 9.8 fL Current Medications Medications (Trade) Dose Ordered Sig/Sophy Route PRN Reason Start Time Stop Time Status Last Admin Dose Admin Sodium Chloride 250 ml @ ud STK-MED ONCE IV 06/19/18 05:32 06/19/18 05:35 DC Cefazolin Sodium (Ancef) 1 gm STK-MED ONCE .ROUTE 06/19/18 05:32 06/19/18 05:36 DC Neostigmine Methylsulfate (Neostigmine) 10 mg STK-MED ONCE .ROUTE 06/19/18 06:49 06/19/18 06:52 DC Ondansetron HCl (Zofran) 4 mg STK-MED ONCE .ROUTE 06/19/18 06:49 06/19/18 06:52 DC Ketorolac Tromethamine (Toradol) 30 mg STK-MED ONCE .ROUTE 06/19/18 06:49 06/19/18 06:52 DC Rocuronium [place] (Zemuron) 100 mg STK-MED ONCE IV 06/19/18 06:49 06/19/18 06:52 DC Hydromorphone HCl (Dilaudid) 2 mg STK-MED ONCE .ROUTE 06/19/18 06:49 06/19/18 06:52 DC Propofol (Diprivan) 200 mg STK-MED ONCE IV 06/19/18 06:49 06/19/18 06:52 DC Dexamethasone Sodium Phosphate (Decadron) 20 mg STK-MED ONCE .ROUTE 06/19/18 06:50 06/19/18 06:53 DC Bupivacaine HCl (Sensorcaine 0.5% Vial) 5 mg STK-MED ONCE .ROUTE 06/19/18 06:50 06/19/18 06:53 DC Ropivacaine (Naropin 0.2% 40 Mg/20 ml Vial) 2 mg STK-MED ONCE .ROUTE 06/19/18 06:50 06/19/18 06:53 DC Lidocaine HCl (Lidocaine 2% Vial) 500 mg STK-MED ONCE .ROUTE 06/19/18 06:50 06/19/18 06:54 DC Dexmedetomidine HCl (Precedex) 200 mcg STK-MED ONCE IV 06/19/18 06:50 06/19/18 06:54 DC Tranexamic Acid (Tranexamic Acid) 1,000 mg STK-MED ONCE IV 06/19/18 07:24 06/19/18 07:27 DC Sodium Chloride (Sodium Chloride) 1,000 ml STK-MED ONCE IR 06/19/18 09:59 06/19/18 10:02 DC Sodium Chloride 100 ml @ ud STK-MED ONCE IV 06/19/18 09:59 06/19/18 10:02 DC Sodium Chloride 250 ml @ ud STK-MED ONCE IV 06/19/18 09:59 06/19/18 10:02 DC Sodium Chloride (NS 3000ml Irr) 3,000 ml STK-MED ONCE IR 06/19/18 09:59 06/19/18 10:02 DC Acetaminophen (Tylenol) 500 mg STK-MED ONCE PO 06/19/18 12:37 06/19/18 12:41 DC Gabapentin (Neurontin) 400 mg STK-MED ONCE .ROUTE 06/19/18 12:37 06/19/18 12:41 DC Acetaminophen (Tylenol) 1,000 mg OT PO 06/19/18 13:00 06/19/18 20:53 DC 06/19/18 12:49 Acetaminophen (Tylenol) 1,000 mg Q6H PO 06/19/18 13:00 07/19/18 12:59 06/20/18 03:01 Celecoxib (Celebrex) 200 mg Q12HR PO 06/19/18 21:00 06/19/18 21:00 DC Gabapentin (Neurontin) 400 mg Q24HRS PO 06/20/18 13:00 06/20/18 13:01 Sodium Chloride (Sodium Chloride) 1,000 ml STK-MED ONCE IR 06/19/18 13:25 06/19/18 13:28 DC Sodium Chloride 250 ml @ ud STK-MED ONCE IV 06/19/18 13:25 06/19/18 13:29 DC Sodium Chloride (NS 3000ml Irr) 3,000 ml STK-MED ONCE IR 06/19/18 13:25 06/19/18 13:29 DC Sodium Chloride 100 ml @ ud STK-MED ONCE IV 06/19/18 13:26 06/19/18 13:29 DC Albuterol/ Ipratropium (Duoneb 0.5 Mg-3 Mg/3 ml Soln) 3 ml STK-MED ONCE IH 06/19/18 16:29 06/19/18 16:32 DC Hydromorphone HCl (Dilaudid) 0.2 mg Q5MIN PRN IV PAIN MILD 06/19/18 17:00 06/20/18 08:26 DC 06/19/18 16:48 Fentanyl Citrate (Sublimaze) 12.5 mcg Q5MIN PRN IV PAIN 06/19/18 17:00 06/20/18 16:59 Ondansetron HCl (Zofran) 4 mg PRN PRN IV nv 06/19/18 17:00 06/19/18 20:57 DC Promethazine HCl (Phenergan) 6.25 mg PRN PRN IV NAUSEA / VOMITING 06/19/18 17:00 06/19/18 20:56 DC Diphenhydramine HCl (Benadryl) 25 mg Q5MIN PRN IV NAUSEA / VOMITING 06/19/18 17:00 06/19/18 20:56 DC Albuterol Sulfate (Ventolin) 2.5 mg OT PRN IH WHEEZING 06/19/18 17:00 06/19/18 20:54 DC Labetalol HCl (Trandate) 5 mg Q5MIN PRN IV HYPERTENSION 06/19/18 17:00 07/19/18 16:59 06/19/18 17:14 Tramadol HCl (Ultram) 50 mg Q4HR PO 06/19/18 20:00 07/19/18 19:59 06/20/18 10:32 Tramadol HCl (Ultram) 100 mg Q4HR PRN PO SEVERE PAIN 06/19/18 17:00 07/19/18 16:59 06/20/18 06:23 Rivaroxaban (Xarelto) 10 mg DAILY PO 06/20/18 09:00 07/20/18 08:59 06/20/18 10:30 Docusate Sodium (Colace) 100 mg DAILY PO 06/20/18 09:00 07/20/18 08:59 06/20/18 10:30 Throat Lozenges (Cepacol Sore Throat Lozenge) 1 each PRN PRN MM SORE THROAT 06/19/18 17:00 07/19/18 16:59 Famotidine (Pepcid) 20 mg DAILY PO 06/20/18 09:00 07/20/18 08:59 06/20/18 10:31 Celecoxib (Celebrex) 200 mg BID PO 06/19/18 21:00 07/19/18 20:59 06/20/18 10:32 Hydromorphone HCl (Dilaudid) 3 mg Q4H PRN IV PAIN 8-10 06/19/18 17:00 07/19/18 16:59 Ondansetron HCl (Zofran) 4 mg Q4H PRN IV NAUSEA / VOMITING 06/19/18 17:00 07/19/18 16:59 Albuterol/ Ipratropium (Duoneb 0.5 Mg-3 Mg/3 ml Soln) 3 ml STAT STAT IH 06/19/18 16:49 06/19/18 20:51 DC 06/19/18 16:54 Labetalol HCl (Trandate) 20 mg STK-MED ONCE IV 06/19/18 17:08 06/19/18 17:11 DC Albuterol Sulfate (Ventolin) 2.5 mg RTQ4 PRN IH WHEEZING 06/19/18 20:00 07/19/18 19:59 Hydrochlorothiazide (Hydrochlorothiazide) 12.5 mg DAILY PO 06/20/18 09:00 07/20/18 08:59 06/20/18 10:30 Lisinopril (Zestril) 5 mg DAILY PO 06/20/18 09:00 07/20/18 08:59 06/20/18 10:31 Montelukast Sodium (Singulair) 10 mg DAILY PO 06/20/18 09:00 07/20/18 08:59 06/20/18 10:31 Pantoprazole Sodium (Protonix) 40 mg DAILY PO 06/19/18 21:00 07/19/18 20:59 06/20/18 10:30 Epinephrine (S-2) 1 each STAT STAT IH 06/19/18 20:56 06/19/18 20:58 DC 06/19/18 21:02 Albuterol/ Ipratropium (Duoneb 0.5 Mg-3 Mg/3 ml Soln) 3 ml RTQ6H IH 06/19/18 21:00 07/19/18 20:59 06/20/18 09:52 Epinephrine (S-2) 1 each STK-MED ONCE IH 06/19/18 20:55 06/19/18 20:59 DC Calcium Carbonate/ Glycine (Tums) 500 mg STK-MED ONCE .ROUTE 06/19/18 20:59 06/19/18 21:02 DC Tamsulosin HCl (Flomax) 0.4 mg DAILY PO 06/20/18 09:00 07/20/18 08:59 06/20/18 10:30 Course Sepsis Screening Results: Posi: NEGATIVE Sepsis Qualifier/Stage: NO DEFINITE RISK Duration or Total Time Spent w: 20 Vitals & review Data Vital Sign - Last 24 Hours 06/19/18 06/19/18 06/19/18 06/19/18 12:10 12:10 12:58 13:04 Temp 98.6 98.6 Pulse 93 73 73 Resp 16 18 16 B/P (MAP) 140/81 (100) 145/86 (105) 135/74 (94) Pulse Ox 95 97 98 O2 Delivery Room Air Room Air Nasal Canula Nasal Canula O2 Flow Rate 2 2 06/19/18 06/19/18 06/19/18 06/19/18 16:22 16:22 16:32 16:37 Temp 98.3 98.6 98.3 98.6 Pulse 83 83 88 Resp 18 18 18 B/P (MAP) 149/90 (109) 182/96 (124) Pulse Ox 100 100 100 O2 Delivery Non-Rebreather Non-Rebreather O2 Flow Rate 10 10 5 06/19/18 06/19/18 06/19/18 06/19/18 16:52 16:53 17:07 17:22 Temp 98.5 97.9 98.0 98.5 97.9 98.0 Pulse 91 87 89 78 Resp 18 18 18 18 B/P (MAP) 185/93 (123) 196/107 (136) 169/95 (119) Pulse Ox 99 100 99 98 O2 Delivery Non-Rebreather Nasal Canula Nasal Canula O2 Flow Rate 5 3 2 06/19/18 06/19/18 06/19/18 06/19/18 17:45 18:01 18:36 20:00 Temp 97.5 97.9 97.5 97.9 Pulse 77 63 Resp 17 18 22 B/P (MAP) 144/91 (108) 147/85 (105) Pulse Ox 99 98 99 O2 Delivery Nasal Canula Nasal Cannula Nasal Canula O2 Flow Rate 2 2.00 2.00 06/19/18 06/19/18 06/19/18 06/20/18 21:06 21:07 21:07 00:15 Temp 98.2 98.2 Pulse 98 92 61 Resp 18 18 22 B/P (MAP) 125/79 (94) Pulse Ox 97 98 95 O2 Delivery Nasal Cannula Nasal Canula O2 Flow Rate 2.00 2.00 06/20/18 06/20/18 06/20/18 06/20/18 02:33 03:19 03:19 05:35 Temp 98.6 98.6 Pulse 56 59 62 Resp 18 16 22 B/P (MAP) 135/78 (97) Pulse Ox 93 98 95 O2 Delivery Nasal Cannula Nasal Canula O2 Flow Rate 2.00 2.00 06/20/18 06/20/18 06/20/18 06/20/18 07:04 09:53 09:55 09:56 Temp 97.7 97.7 Pulse 70 68 70 67 Resp 20 12 20 12 B/P (MAP) 151/87 (108) Pulse Ox 96 97 96 97 O2 Delivery Room Air Room Air FiO2 21 06/20/18 06/20/18 06/20/18 10:30 10:31 10:36 B/P (MAP) 151/87 151/87 O2 Delivery Room Air Intake and Output 06/19/18 06/19/18 06/20/18 15:00 23:00 07:00 Intake Total 500 ml 5772 ml 500 ml Output Total 250 ml Balance 500 ml 5772 ml 250 ml Laboratory Tests Test 06/19/18 21:10 06/20/18 05:00 White Blood Count 15.1 10^3/uL 12.6 10^3/uL Red Blood Count 4.77 10^6/uL 4.33 10^6/uL Hemoglobin 14.7 g/dL 13.2 g/dL Hematocrit 43.5 % 39.5 % Mean Corpuscular Volume 91.2 fL 91.2 fL Mean Corpuscular Hemoglobin 30.8 pg 30.5 pg Mean Corpuscular Hemoglobin Concent 33.8 g/dL 33.4 g/dL Red Cell Distribution Width 13.2 % 13.2 % Platelet Count 195 10^3/uL 195 10^3/uL Mean Platelet Volume 9.4 fL 9.8 fL Current Medications Medications (Trade) Dose Ordered Sig/Sophy PRN Reason Start Time Stop Time Status Last Admin Acetaminophen (Tylenol) 1,000 mg Q6H 2/11/19 13:00 07/19/18 12:59 06/20/18 03:01 Albuterol Sulfate (Ventolin) 2.5 mg RTQ4 PRN WHEEZING 06/19/18 20:00 07/19/18 19:59 Albuterol/ Ipratropium (Duoneb 0.5 Mg-3 Mg/3 ml Soln) 3 ml RTQ6H 06/19/18 21:00 07/19/18 20:59 06/20/18 09:52 Celecoxib (Celebrex) 200 mg BID 06/19/18 21:00 07/19/18 20:59 06/20/18 10:32 Docusate Sodium (Colace) 100 mg DAILY 06/20/18 09:00 07/20/18 08:59 06/20/18 10:30 Famotidine (Pepcid) 20 mg DAILY 06/20/18 09:00 07/20/18 08:59 06/20/18 10:31 Fentanyl Citrate (Sublimaze) 12.5 mcg Q5MIN PRN PAIN 06/19/18 17:00 06/20/18 16:59 Gabapentin (Neurontin) 400 mg Q24HRS 06/20/18 13:00 06/20/18 13:01 Hydrochlorothiazide (Hydrochlorothiazide) 12.5 mg DAILY 06/20/18 09:00 07/20/18 08:59 06/20/18 10:30 Hydromorphone HCl (Dilaudid) 3 mg Q4H PRN PAIN 8-10 06/19/18 17:00 07/19/18 16:59 Labetalol HCl (Trandate) 5 mg Q5MIN PRN HYPERTENSION 06/19/18 17:00 07/19/18 16:59 06/19/18 17:14 Lisinopril (Zestril) 5 mg DAILY 06/20/18 09:00 07/20/18 08:59 06/20/18 10:31 Montelukast Sodium (Singulair) 10 mg DAILY 06/20/18 09:00 07/20/18 08:59 06/20/18 10:31 Ondansetron HCl (Zofran) 4 mg Q4H PRN NAUSEA / VOMITING 06/19/18 17:00 07/19/18 16:59 Pantoprazole Sodium (Protonix) 40 mg DAILY 06/19/18 21:00 07/19/18 20:59 06/20/18 10:30 Rivaroxaban (Xarelto) 10 mg DAILY 06/20/18 09:00 07/20/18 08:59 06/20/18 10:30 Tamsulosin HCl (Flomax) 0.4 mg DAILY 06/20/18 09:00 07/20/18 08:59 06/20/18 10:30 Throat Lozenges (Cepacol Sore Throat Lozenge) 1 each PRN PRN SORE THROAT 06/19/18 17:00 07/19/18 16:59 Tramadol HCl (Ultram) 50 mg Q4HR 06/19/18 20:00 07/19/18 19:59 06/20/18 10:32 Tramadol HCl (Ultram) 100 mg Q4HR PRN SEVERE PAIN 06/19/18 17:00 07/19/18 16:59 06/20/18 06:23 Sepsis Infection Criteria Pres: None LEVEL 1 SEPSIS INFECTION CRITE: Recent Invasive Procedure LEVEL 2-SIRS (LIST ALL THAT AP: RR>20/min O2 Sat by Pulse Oximetry: 92 Oxygen Flow Rate: 2.00 Assessment/Plan Assessment/Plan Assessment/Plan 1. OA R knee: s/p TKA. Ortho managing, cont pain control and PT. 2. HTN: cont HCTZ/DIANA 3. BPH: will start flomax 4. COPD: cont Nebs, O2 support 5. PPx: PPI, Xarelto 6. Laryngeal irritation: 2/2 intubation and hx of Tracheostomy. Racemic epi ordered last night x 1. Cont nebs. O2 support Plan 1. OA R knee: s/p TKA. Ortho managing, cont pain control and PT. Awaiting placement. 2. HTN: cont HCTZ/DIANA 3. BPH: will start flomax 4. COPD: cont Nebs, O2 support 5. PPx: PPI, Xarelto 6. Laryngeal irritation: 2/2 intubation and hx of Tracheostomy. Racemic epi ordered last night x 1. Cont nebs. O2 support 7.) Hyponatremia - May have have slight touch of SIADH. Recheck in AM and follow fluid balance. ELIA CUMMINGS MD Jun 21, 2018 17:47
[2018-06-21] MEDS: ZOFRAN IV PRN (20:00)
[2018-06-21 21:02] VITALS: BP 167/67
[2018-06-21] MEDS: MUCINEX PO SCH (21:04)
[2018-06-22 00:40] VITALS: BP 134/70
[2018-06-22] MEDS: ULTRAM PO PRN ×4 (01:00→12:22)
[2018-06-22] MEDS: TYLENOL PO SCH ×4 (01:00→20:34)
[2018-06-22] MEDS: DUONEB 0.5 MG-3 MG/3 ML SOLN IH SCH ×4 (02:30→21:22)
[2018-06-22] MEDS: ULTRAM PO SCH ×7 (04:00→20:34)
[2018-06-22 05:40] LABS: CARBON DIOXIDE 26.8 mmol/L (20.0-32)
--- NOTE | 2018-06-22 05:52 | NUR ---
PT HAS CRITICAL VALUES, CHLORIDE [address] CUMMINGS DID NOT ANSWEAR LEFT MESSAGE. WAITING FEE CLERK BACK.
[2018-06-22 05:55] VITALS: BP 160/92
--- NOTE | 2018-06-22 06:35 | NUR ---
DR. CUMMINGS HAS NOT RETURNED PHONE CARE . REPORT GIVEN TO JEFF DESAI.
--- NOTE | 2018-06-22 06:40 | NUR ---
Report Received report and assumed care of pt. Pt sitting up in chair. Pt denies pain or shortness of breath. Call light within reach.
--- NOTE | 2018-06-22 07:20 | NUR ---
Critical lab Pt sodium level came back at 118. Attempted to notify Dr. Herrera. No answer. Voicemail left. Awaiting return call .
[2018-06-22 08:00] VITALS: BP 173/90
[2018-06-22] MEDS: MUCOMYST HHN SCH (08:25)
[2018-06-22] MEDS: ZESTRIL PO SCH (09:00)
[2018-06-22] MEDS: FLOMAX PO SCH (09:05)
[2018-06-22] MEDS: COLACE PO SCH (09:06)
[2018-06-22] MEDS: PROTONIX PO SCH (09:06)
[2018-06-22] MEDS: MUCINEX PO SCH ×2 (09:06→21:18)
[2018-06-22] MEDS: CELEBREX PO SCH ×2 (09:06→21:18)
[2018-06-22] MEDS: XARELTO PO SCH (09:06)
[2018-06-22] MEDS: PEPCID PO SCH (09:06)
[2018-06-22] MEDS: HYDROCHLOROTHIAZIDE PO SCH (09:06)
[2018-06-22] MEDS: SINGULAIR PO SCH (09:06)
--- NOTE | 2018-06-22 10:00 | NUR ---
Dr.Hinshaw Dr. Herrera at bedside. New orders received.
--- NOTE | 2018-06-22 10:33 | NUR ---
Urine Sample Urine sample obtained and taken down to lab
[2018-06-22] MEDS: LACTATED RINGERS 1,000 ML IV SCH (12:00)
--- NOTE | 2018-06-22 12:55 | NUR ---
REPORT RECEIVED REPORT FROM Keli VILLAREAL RN. ASSUMED CARE AT THIS TIME.
[2018-06-22 13:12] VITALS: BP 180/97
--- NOTE | 2018-06-22 13:19 | NUR ---
DR ANTIONETTE ADAN ROUNDING AT THIS TIME. DR ADAN STATES THAT PT WILL STAY THE NIGHT AND RE EVALUATE IN THE MORNING.
[2018-06-22 13:22] LABS: CARBON DIOXIDE 25.4 mmol/L (20.0-32)
--- NOTE | 2018-06-22 13:28 | PRM.PN ---
Subjective Subjective Date: Jun 22, 2018 Time: 13:26 Subjective feeling a little better. Good pain control. Tolerating oral intake. Working with physical therapy. 06/22 Pt confused today VSS HGB 12 Na 116 Hospitalist to address low sodium Cont with PT and breathing RX Patient History: Alzheimer's disease 33 FATHER, , Age:87 Asthma V19 CHILD Hypertension 32 MOTHER, , Age:89 No known health problems G8 SISTER V19 CHILD V19 CHILD Parkinson's disease 33 FATHER, , Age:87 No Family History of: Cerebrovascular disorder Chronic obstructive pulmonary disease Congestive heart failure Diabetes insipidus Diabetes mellitus VTE VTE Risk Total Score: >5 VTE Risk Score VTE Risk: Score 0-1 = Low Risk (Aggressive mobilization; early ambulation; no VTE prophylaxis required) Score 2: Moderate Risk (Intermittent/Pneumatic Compression Device OR Lovenox/Heparin/Coumadin) Score 3-4: High Risk (Intermittent/Pneumatic Compression Device AND Lovenox/Heparin/Coumadin) Score > or =5: Highest Risk (Intermittent/Pneumatic Compression Device AND Lovenox/Heparin/Coumadin) Review of Systems Constitutional: No: Fever, Chills Eyes: No: Vision change, Conjunctivae inflammation, Eyelid inflammation ENT: Other (hoarseness); No: Nose discharge, Nose congestion Respiratory: Cough, Wheezing; No: Shortness of breath, SOB with excertion Cardiovascular: No: Chest Pain, Palpitations, Edema Gastrointestinal: No: Nausea, Vomiting, Abdominal Pain, Diarrhea, Constipation Genitourinary: No Hematuria; Retention Musculoskeletal: No: neck pain, back pain Skin: No: Rash, Lesions, Jaundice, Bruising Neurological: No: Weakness, Numbness, Incoordination, Change in speech, Confusion, Seizures Allergies: Coded Allergies: No Known Allergies (Unverified , 06/14/18) Scheduled Hydrochlorothiazide (Hydrochlorothiazide), 1 CAP PO DAILY, (Reported) Lisinopril (Lisinopril), 1 TAB PO DAILY, (Reported) Metronidazole (Metrocream), 1 APPLIC TP BID, (Reported) Montelukast Sodium (Singulair), 1 TAB PO DAILY, (Reported) Scheduled PRN Ibuprofen (Advil), 600 MG PO BID PRN for PAIN, (Reported) Pantoprazole Sodium (Protonix), 1 TAB PO DAILY PRN for INDIGESTION, (Reported) Objective Vitals and I/O Vital Sign - Last 24 Hours 06/19/18 06/19/18 06/19/18 06/19/18 12:10 12:10 12:58 13:04 Temp 98.6 98.6 Pulse 93 73 73 Resp 16 18 16 B/P (MAP) 140/81 (100) 145/86 (105) 135/74 (94) Pulse Ox 95 97 98 O2 Delivery Room Air Room Air Nasal Canula Nasal Canula O2 Flow Rate 2 2 06/19/18 06/19/18 06/19/18 06/19/18 16:22 16:22 16:32 16:37 Temp 98.3 98.6 98.3 98.6 Pulse 83 83 88 Resp 18 18 18 B/P (MAP) 149/90 (109) 182/96 (124) Pulse Ox 100 100 100 O2 Delivery Non-Rebreather Non-Rebreather O2 Flow Rate 10 10 5 06/19/18 06/19/18 06/19/18 06/19/18 16:52 16:53 17:07 17:22 Temp 98.5 97.9 98.0 98.5 97.9 98.0 Pulse 91 87 89 78 Resp 18 18 18 18 B/P (MAP) 185/93 (123) 196/107 (136) 169/95 (119) Pulse Ox 99 100 99 98 O2 Delivery Non-Rebreather Nasal Canula Nasal Canula O2 Flow Rate 5 3 2 06/19/18 06/19/18 06/19/18 06/19/18 17:45 18:01 18:36 20:00 Temp 97.5 97.9 97.5 97.9 Pulse 77 63 Resp 17 18 22 B/P (MAP) 144/91 (108) 147/85 (105) Pulse Ox 99 98 99 O2 Delivery Nasal Canula Nasal Cannula Nasal Canula O2 Flow Rate 2 2.00 2.00 06/19/18 06/19/18 06/19/18 06/20/18 21:06 21:07 21:07 00:15 Temp 98.2 98.2 Pulse 98 92 61 Resp 18 22 B/P (MAP) 125/79 (94) Pulse Ox 97 98 95 O2 Delivery Nasal Cannula Nasal Canula O2 Flow Rate 2.00 2.00 2/1206/20/18 06/20/18 06/20/18 02:33 03:19 03:19 05:35 Temp 98.6 98.6 Pulse 56 59 62 Resp 18 16 22 B/P (MAP) 135/78 (97) Pulse Ox 93 98 95 O2 Delivery Nasal Cannula Nasal Canula O2 Flow Rate 2.00 2.00 06/20/18 06/20/18 06/20/18 06/20/18 07:04 09:53 09:55 09:56 Temp 97.7 97.7 Pulse 70 68 70 67 Resp 20 12 20 12 B/P (MAP) 151/87 (108) Pulse Ox 96 97 96 97 O2 Delivery Room Air Room Air FiO2 21 06/20/18 06/20/18 06/20/18 10:30 10:31 10:36 B/P (MAP) 151/87 151/87 O2 Delivery Room Air Intake and Output 06/19/18 06/19/18 06/20/18 15:00 23:00 07:00 Intake Total 500 ml 5772 ml 500 ml Output Total 250 ml Balance 500 ml 5772 ml 250 ml General: Alert, Oriented X3, Cooperative, No acute distress Neck: Supple, No JVD Lungs: Clear to auscultation Heart: Regular rate, Normal S1, Normal S2, No murmurs Abdomen: Normal bowel sounds, Soft, No tenderness, No masses Neuro: Normal gait, Normal speech, Strength at 5/5 X4 ext, Normal tone, Sensation intact All Results(Lab/Rad) Laboratory Tests Test 06/19/18 21:10 06/20/18 05:00 White Blood Count 15.1 10^3/uL 12.6 10^3/uL Red Blood Count 4.77 10^6/uL 4.33 10^6/uL Hemoglobin 14.7 g/dL 13.2 g/dL Hematocrit 43.5 % 39.5 % Mean Corpuscular Volume 91.2 fL 91.2 fL Mean Corpuscular Hemoglobin 30.8 pg 30.5 pg Mean Corpuscular Hemoglobin Concent 33.8 g/dL 33.4 g/dL Red Cell Distribution Width 13.2 % 13.2 % Platelet Count 195 10^3/uL 195 10^3/uL Mean Platelet Volume 9.4 fL 9.8 fL Current Medications Medications (Trade) Dose Ordered Sig/Sophy Route PRN Reason Start Time Stop Time Status Last Admin Dose Admin Sodium Chloride 250 ml @ ud STK-MED ONCE IV 06/19/18 05:32 06/19/18 05:35 DC Cefazolin Sodium (Ancef) 1 gm STK-MED ONCE .ROUTE 06/19/18 05:32 06/19/18 05:36 DC Neostigmine Methylsulfate (Neostigmine) 10 mg STK-MED ONCE .ROUTE 06/19/18 06:49 06/19/18 06:52 DC Ondansetron HCl (Zofran) 4 mg STK-MED ONCE .ROUTE 06/19/18 06:49 06/19/18 06:52 DC Ketorolac Tromethamine (Toradol) 30 mg STK-MED ONCE .ROUTE 06/19/18 06:49 06/19/18 06:52 DC Rocuronium [place] (Zemuron) 100 mg STK-MED ONCE IV 06/19/18 06:49 06/19/18 06:52 DC Hydromorphone HCl (Dilaudid) 2 mg STK-MED ONCE .ROUTE 06/19/18 06:49 06/19/18 06:52 DC Propofol (Diprivan) 200 mg STK-MED ONCE IV 06/19/18 06:49 06/19/18 06:52 DC Dexamethasone Sodium Phosphate (Decadron) 20 mg STK-MED ONCE .ROUTE 06/19/18 06:50 06/19/18 06:53 DC Bupivacaine HCl (Sensorcaine 0.5% Vial) 5 mg STK-MED ONCE .ROUTE 06/19/18 06:50 06/19/18 06:53 DC Ropivacaine (Naropin 0.2% 40 Mg/20 ml Vial) 2 mg STK-MED ONCE .ROUTE 06/19/18 06:50 06/19/18 06:53 DC Lidocaine HCl (Lidocaine 2% Vial) 500 mg STK-MED ONCE .ROUTE 06/19/18 06:50 06/19/18 06:54 DC Dexmedetomidine HCl (Precedex) 200 mcg STK-MED ONCE IV 06/19/18 06:50 06/19/18 06:54 DC Tranexamic Acid (Tranexamic Acid) 1,000 mg STK-MED ONCE IV 06/19/18 07:24 06/19/18 07:27 DC Sodium Chloride (Sodium Chloride) 1,000 ml STK-MED ONCE IR 06/19/18 09:59 06/19/18 10:02 DC Sodium Chloride 100 ml @ ud STK-MED ONCE IV 06/19/18 09:59 06/19/18 10:02 DC Sodium Chloride 250 ml @ ud STK-MED ONCE IV 06/19/18 09:59 06/19/18 10:02 DC Sodium Chloride (NS 3000ml Irr) 3,000 ml STK-MED ONCE IR 06/19/18 09:59 06/19/18 10:02 DC Acetaminophen (Tylenol) 500 mg STK-MED ONCE PO 06/19/18 12:37 06/19/18 12:41 DC Gabapentin (Neurontin) 400 mg STK-MED ONCE .ROUTE 06/19/18 12:37 06/19/18 12:41 DC Acetaminophen (Tylenol) 1,000 mg OT PO 06/19/18 13:00 06/19/18 20:53 DC 06/19/18 12:49 Acetaminophen (Tylenol) 1,000 mg Q6H PO 06/19/18 13:00 07/19/18 12:59 06/20/18 03:01 Celecoxib (Celebrex) 200 mg Q12HR PO 06/19/18 21:00 06/19/18 21:00 DC Gabapentin (Neurontin) 400 mg Q24HRS PO 06/20/18 13:00 06/20/18 13:01 Sodium Chloride (Sodium Chloride) 1,000 ml STK-MED ONCE IR 06/19/18 13:25 06/19/18 13:28 DC Sodium Chloride 250 ml @ ud STK-MED ONCE IV 06/19/18 13:25 06/19/18 13:29 DC Sodium Chloride (NS 3000ml Irr) 3,000 ml STK-MED ONCE IR 06/19/18 13:25 06/19/18 13:29 DC Sodium Chloride 100 ml @ ud STK-MED ONCE IV 06/19/18 13:26 06/19/18 13:29 DC Albuterol/ Ipratropium (Duoneb 0.5 Mg-3 Mg/3 ml Soln) 3 ml STK-MED ONCE IH 06/19/18 16:29 06/19/18 16:32 DC Hydromorphone HCl (Dilaudid) 0.2 mg Q5MIN PRN IV PAIN MILD 06/19/18 17:00 06/20/18 08:26 DC 06/19/18 16:48 Fentanyl Citrate (Sublimaze) 12.5 mcg Q5MIN PRN IV PAIN 06/19/18 17:00 06/20/18 16:59 Ondansetron HCl (Zofran) 4 mg PRN PRN IV nv 06/19/18 17:00 06/19/18 20:57 DC Promethazine HCl (Phenergan) 6.25 mg PRN PRN IV NAUSEA / VOMITING 06/19/18 17:00 06/19/18 20:56 DC Diphenhydramine HCl (Benadryl) 25 mg Q5MIN PRN IV NAUSEA / VOMITING 06/19/18 17:00 06/19/18 20:56 DC Albuterol Sulfate (Ventolin) 2.5 mg OT PRN IH WHEEZING 06/19/18 17:00 06/19/18 20:54 DC Labetalol HCl (Trandate) 5 mg Q5MIN PRN IV HYPERTENSION 06/19/18 17:00 07/19/18 16:59 06/19/18 17:14 Tramadol HCl (Ultram) 50 mg Q4HR PO 06/19/18 20:00 07/19/18 19:59 06/20/18 10:32 Tramadol HCl (Ultram) 100 mg Q4HR PRN PO SEVERE PAIN 06/19/18 17:00 07/19/18 16:59 06/20/18 06:23 Rivaroxaban (Xarelto) 10 mg DAILY PO 06/20/18 09:00 07/20/18 08:59 06/20/18 10:30 Docusate Sodium (Colace) 100 mg DAILY PO 06/20/18 09:00 07/20/18 08:59 06/20/18 10:30 Throat Lozenges (Cepacol Sore Throat Lozenge) 1 each PRN PRN MM SORE THROAT 06/19/18 17:00 07/19/18 16:59 Famotidine (Pepcid) 20 mg DAILY PO 06/20/18 09:00 07/20/18 08:59 06/20/18 10:31 Celecoxib (Celebrex) 200 mg BID PO 06/19/18 21:00 07/19/18 20:59 06/20/18 10:32 Hydromorphone HCl (Dilaudid) 3 mg Q4H PRN IV PAIN 8-10 06/19/18 17:00 07/19/18 16:59 Ondansetron HCl (Zofran) 4 mg Q4H PRN IV NAUSEA / VOMITING 06/19/18 17:00 07/19/18 16:59 Albuterol/ Ipratropium (Duoneb 0.5 Mg-3 Mg/3 ml Soln) 3 ml STAT STAT IH 06/19/18 16:49 06/19/18 20:51 DC 06/19/18 16:54 Labetalol HCl (Trandate) 20 mg STK-MED ONCE IV 06/19/18 17:08 06/19/18 17:11 DC Albuterol Sulfate (Ventolin) 2.5 mg RTQ4 PRN IH WHEEZING 06/19/18 20:00 07/19/18 19:59 Hydrochlorothiazide (Hydrochlorothiazide) 12.5 mg DAILY PO 06/20/18 09:00 07/20/18 08:59 06/20/18 10:30 Lisinopril (Zestril) 5 mg DAILY PO 06/20/18 09:00 07/20/18 08:59 06/20/18 10:31 Montelukast Sodium (Singulair) 10 mg DAILY PO 06/20/18 09:00 07/20/18 08:59 06/20/18 10:31 Pantoprazole Sodium (Protonix) 40 mg DAILY PO 06/19/18 21:00 07/19/18 20:59 06/20/18 10:30 Epinephrine (S-2) 1 each STAT STAT IH 06/19/18 20:56 06/19/18 20:58 DC 06/19/18 21:02 Albuterol/ Ipratropium (Duoneb 0.5 Mg-3 Mg/3 ml Soln) 3 ml RTQ6H IH 06/19/18 21:00 07/19/18 20:59 06/20/18 09:52 Epinephrine (S-2) 1 each STK-MED ONCE IH 06/19/18 20:55 06/19/18 20:59 DC Calcium Carbonate/ Glycine (Tums) 500 mg STK-MED ONCE .ROUTE 06/19/18 20:59 06/19/18 21:02 DC Tamsulosin HCl (Flomax) 0.4 mg DAILY PO 06/20/18 09:00 07/20/18 08:59 06/20/18 10:30 Course Sepsis Screening Results: Posi: NEGATIVE Sepsis Qualifier/Stage: NO DEFINITE RISK Duration or Total Time Spent w: 20 Vitals & review Data Vital Sign - Last 24 Hours 06/19/18 06/19/18 06/19/18 06/19/18 12:10 12:10 12:58 13:04 Temp 98.6 98.6 Pulse 93 73 73 Resp 16 18 16 B/P (MAP) 140/81 (100) 145/86 (105) 135/74 (94) Pulse Ox 95 97 98 O2 Delivery Room Air Room Air Nasal Canula Nasal Canula O2 Flow Rate 2 2 06/19/18 06/19/18 06/19/18 06/19/18 16:22 16:22 16:32 16:37 Temp 98.3 98.6 98.3 98.6 Pulse 83 83 88 Resp 18 18 18 B/P (MAP) 149/90 (109) 182/96 (124) Pulse Ox 100 100 100 O2 Delivery Non-Rebreather Non-Rebreather O2 Flow Rate 10 10 5 06/19/18 06/19/18 06/19/18 06/19/18 16:52 16:53 17:07 17:22 Temp 98.5 97.9 98.0 98.5 97.9 98.0 Pulse 91 87 89 78 Resp 18 18 18 18 B/P (MAP) 185/93 (123) 196/107 (136) 169/95 (119) Pulse Ox 99 100 99 98 O2 Delivery Non-Rebreather Nasal Canula Nasal Canula O2 Flow Rate 5 3 2 06/19/18 06/19/18 06/19/18 06/19/18 17:45 18:01 18:36 20:00 Temp 97.5 97.9 97.5 97.9 Pulse 77 63 Resp 17 18 22 B/P (MAP) 144/91 (108) 147/85 (105) Pulse Ox 99 98 99 O2 Delivery Nasal Canula Nasal Cannula Nasal Canula O2 Flow Rate 2 2.00 2.00 06/19/18 06/19/18 06/19/18 06/20/18 21:06 21:07 21:07 00:15 Temp 98.2 98.2 Pulse 98 92 61 Resp 18 18 22 B/P (MAP) 125/79 (94) Pulse Ox 97 98 95 O2 Delivery Nasal Cannula Nasal Canula O2 Flow Rate 2.00 2.00 06/20/18 06/20/18 06/20/18 06/20/18 02:33 03:19 03:19 05:35 Temp 98.6 98.6 Pulse 56 59 62 Resp 18 16 22 B/P (MAP) 135/78 (97) Pulse Ox 93 98 95 O2 Delivery Nasal Cannula Nasal Canula O2 Flow Rate 2.00 2.00 06/20/18 06/20/18 06/20/18 06/20/18 07:04 09:53 09:55 09:56 Temp 97.7 97.7 Pulse 70 68 70 67 Resp 20 12 20 12 B/P (MAP) 151/87 (108) Pulse Ox 96 97 96 97 O2 Delivery Room Air Room Air FiO2 21 06/20/18 06/20/18 06/20/18 10:30 10:31 10:36 B/P (MAP) 151/87 151/87 O2 Delivery Room Air Intake and Output 06/19/18 06/19/18 06/20/18 15:00 23:00 07:00 Intake Total 500 ml 5772 ml 500 ml Output Total 250 ml Balance 500 ml 5772 ml 250 ml Laboratory Tests Test 06/19/18 21:10 06/20/18 05:00 White Blood Count 15.1 10^3/uL 12.6 10^3/uL Red Blood Count 4.77 10^6/uL 4.33 10^6/uL Hemoglobin 14.7 g/dL 13.2 g/dL Hematocrit 43.5 % 39.5 % Mean Corpuscular Volume 91.2 fL 91.2 fL Mean Corpuscular Hemoglobin 30.8 pg 30.5 pg Mean Corpuscular Hemoglobin Concent 33.8 g/dL 33.4 g/dL Red Cell Distribution Width 13.2 % 13.2 % Platelet Count 195 10^3/uL 195 10^3/uL Mean Platelet Volume 9.4 fL 9.8 fL Current Medications Medications (Trade) Dose Ordered Sig/Sophy PRN Reason Start Time Stop Time Status Last Admin Acetaminophen (Tylenol) 1,000 mg Q6H 06/19/18 13:00 07/19/18 12:59 06/20/18 03:01 Albuterol Sulfate (Ventolin) 2.5 mg RTQ4 PRN WHEEZING 06/19/18 20:00 07/19/18 19:59 Albuterol/ Ipratropium (Duoneb 0.5 Mg-3 Mg/3 ml Soln) 3 ml RTQ6H 06/19/18 21:00 07/19/18 20:59 06/20/18 09:52 Celecoxib (Celebrex) 200 mg BID 06/19/18 21:00 07/19/18 20:59 06/20/18 10:32 Docusate Sodium (Colace) 100 mg DAILY 06/20/18 09:00 07/20/18 08:59 06/20/18 10:30 Famotidine (Pepcid) 20 mg DAILY 06/20/18 09:00 07/20/18 08:59 06/20/18 10:31 Fentanyl Citrate (Sublimaze) 12.5 mcg Q5MIN PRN PAIN 06/19/18 17:00 06/20/18 16:59 Gabapentin (Neurontin) 400 mg Q24HRS 06/20/18 13:00 06/20/18 13:01 Hydrochlorothiazide (Hydrochlorothiazide) 12.5 mg DAILY 06/20/18 09:00 07/20/18 08:59 06/20/18 10:30 Hydromorphone HCl (Dilaudid) 3 mg Q4H PRN PAIN 8-10 06/19/18 17:00 07/19/18 16:59 Labetalol HCl (Trandate) 5 mg Q5MIN PRN HYPERTENSION 06/19/18 17:00 07/19/18 16:59 06/19/18 17:14 Lisinopril (Zestril) 5 mg DAILY 06/20/18 09:00 07/20/18 08:59 06/20/18 10:31 Montelukast Sodium (Singulair) 10 mg DAILY 06/20/18 09:00 07/20/18 08:59 06/20/18 10:31 Ondansetron HCl (Zofran) 4 mg Q4H PRN NAUSEA / VOMITING 06/19/18 17:00 07/19/18 16:59 Pantoprazole Sodium (Protonix) 40 mg DAILY 06/19/18 21:00 07/19/18 20:59 06/20/18 10:30 Rivaroxaban (Xarelto) 10 mg DAILY 06/20/18 09:00 07/20/18 08:59 06/20/18 10:30 Tamsulosin HCl (Flomax) 0.4 mg DAILY 06/20/18 09:00 07/20/18 08:59 06/20/18 10:30 Throat Lozenges (Cepacol Sore Throat Lozenge) 1 each PRN PRN SORE THROAT 06/19/18 17:00 07/19/18 16:59 Tramadol HCl (Ultram) 50 mg Q4HR 06/19/18 20:00 07/19/18 19:59 06/20/18 10:32 Tramadol HCl (Ultram) 100 mg Q4HR PRN SEVERE PAIN 06/19/18 17:00 07/19/18 16:59 06/20/18 06:23 Sepsis Infection Criteria Pres: None LEVEL 1 SEPSIS INFECTION CRITE: Recent Invasive Procedure LEVEL 2-SIRS (LIST ALL THAT AP: None/Not assessed O2 Sat by Pulse Oximetry: 95 Oxygen Flow Rate: 1.00 Assessment/Plan Assessment/Plan Assessment/Plan 1. OA R knee: s/p TKA. Ortho managing, cont pain control and PT. Awaiting placement. 2. HTN: cont HCTZ/DIANA 3. BPH: will start flomax 4. COPD: cont Nebs, O2 support 5. PPx: PPI, Xarelto 6. Laryngeal irritation: 2/2 intubation and hx of Tracheostomy. Racemic epi ordered last night x 1. Cont nebs. O2 support 7.) Hyponatremia - May have have slight touch of SIADH. Recheck in AM and follow fluid balance. Plan 1. OA R knee: s/p TKA. Ortho managing, cont pain control and PT. Awaiting placement. 2. HTN: cont HCTZ/DIANA 3. BPH: will start flomax 4. COPD: cont Nebs, O2 support 5. PPx: PPI, Xarelto 6. Laryngeal irritation: 2/2 intubation and hx of Tracheostomy. Racemic epi ordered last night x 1. Cont nebs. O2 support 7.) Hyponatremia - May have have slight touch of SIADH. Recheck in AM and follow fluid balance. ANA CRISTINA ADAN MD Jun 22, 2018 13:28
--- NOTE | 2018-06-22 13:30 | NUR ---
CRITICAL CRITICAL RESULT CALL TO DR CUMMINGS. RECEIVED NEW ORDERS VIA TELEPHONE. NEW LAB TEST ORDERS. ORDERS STARTED AT THIS TIME.
[2018-06-22] MEDS ORDERED: NS 1000ML 1,000 ML ONE (13:32)
[2018-06-22] MEDS: NS 1000ML 1,000 ML IV SCH (13:53)
--- NOTE | 2018-06-22 14:08 | DIREP ---
PROCEDURE:CHEST 1 VIEW COMPARISON:[facility], CT, CTA CHEST, 01/23/2018, 11:39 AM. [facility], CR, XRAY CHEST 2 VWS, 05/15/2018, 11:09 AM. INDICATIONS:SOB FINDINGS: LUNGS/PLEURA:No significant pulmonary parenchymal abnormalities. No effusions. Linear parenchymal scarring or pleural plaque is noted in the left upper lobe and is unchanged. VASCULATURE:Normal. Unremarkable pulmonary vasculature. Atherosclerotic disease of the thoracic aorta is noted. CARDIAC:Normal. No cardiac silhouette abnormality or cardiomegaly. MEDIASTINUM:Normal. No visible mass or adenopathy. BONES:Degenerative changes of the acromioclavicular joints are noted. OTHER:Negative. CONCLUSION: 1. No active cardiopulmonary disease is demonstrated. Dictated by: Dhaval Pineda M.D. on 06/22/2018 at 02:13 PM
--- NOTE | 2018-06-22 14:29 | NUR ---
AMBULATION PT REQUESTING TO AMBULATE. PT AMBULATED TO THE DOOR OF THE PT ROOM. PT TOLERATED WELL. PT BACK IN RECLINER. PT IN AND OUT OF RESTING WHILE CONVERSING. PT FAMILY MEMBERS AT BEDSIDE X3.
--- NOTE | 2018-06-22 16:15 | NUR ---
NEURO IN ASSESSING PT AT THIS TIME. NEURO CHECKS COMPLETE. PT ALERT AND ORIENT X3. NOTED NO DEFICITS TO ANY EXTREMITIES. PT REMAINS AT BEDSIDE AND STATES THAT HE CONTINUES TO BE ABOUT THE SAME.
[2018-06-22 16:36] VITALS: BP 158/82
--- NOTE | 2018-06-22 17:04 | PRM.PN ---
Subjective Subjective Date: Jun 22, 2018 Time: 17:00 Subjective Not feeling good today. More somnolent. Can't be specific as to sx. No localized pain. Feels lethargic. Patient History: Alzheimer's disease 33 FATHER, , Age:87 Asthma V19 CHILD Hypertension 32 MOTHER, , Age:89 No known health problems G8 SISTER V19 CHILD V19 CHILD Parkinson's disease 33 FATHER, , Age:87 No Family History of: Cerebrovascular disorder Chronic obstructive pulmonary disease Congestive heart failure Diabetes insipidus Diabetes mellitus VTE VTE Risk Total Score: >5 VTE Risk Score VTE Risk: Score 0-1 = Low Risk (Aggressive mobilization; early ambulation; no VTE prophylaxis required) Score 2: Moderate Risk (Intermittent/Pneumatic Compression Device OR Lovenox/Heparin/Coumadin) Score 3-4: High Risk (Intermittent/Pneumatic Compression Device AND Lovenox/Heparin/Coumadin) Score > or =5: Highest Risk (Intermittent/Pneumatic Compression Device AND Lovenox/Heparin/Coumadin) Review of Systems Constitutional: Weakness, Malaise; No: Fever, Chills Eyes: No: Vision change, Conjunctivae inflammation, Eyelid inflammation ENT: Other (hoarseness); No: Nose discharge, Nose congestion Respiratory: Cough, Wheezing; No: Shortness of breath, SOB with excertion Cardiovascular: No: Chest Pain, Palpitations, Edema Gastrointestinal: No: Nausea, Vomiting, Abdominal Pain, Diarrhea, Constipation Genitourinary: No Hematuria; Retention Musculoskeletal: No: neck pain, back pain Skin: No: Rash, Lesions, Jaundice, Bruising Neurological: Weakness; No: Numbness, Incoordination, Change in speech, Confusion, Seizures Allergies: Coded Allergies: No Known Allergies (Unverified , 06/14/18) Scheduled Hydrochlorothiazide (Hydrochlorothiazide), 1 CAP PO DAILY, (Reported) Lisinopril (Lisinopril), 1 TAB PO DAILY, (Reported) Metronidazole (Metrocream), 1 APPLIC TP BID, (Reported) Montelukast Sodium (Singulair), 1 TAB PO DAILY, (Reported) Scheduled PRN Ibuprofen (Advil), 600 MG PO BID PRN for PAIN, (Reported) Pantoprazole Sodium (Protonix), 1 TAB PO DAILY PRN for INDIGESTION, (Reported) Objective Vitals and I/O Vital Sign - Last 24 Hours 06/19/18 06/19/18 06/19/18 06/19/18 12:10 12:10 12:58 13:04 Temp 98.6 98.6 Pulse 93 73 73 Resp 16 18 16 B/P (MAP) 140/81 (100) 145/86 (105) 135/74 (94) Pulse Ox 95 97 98 O2 Delivery Room Air Room Air Nasal Canula Nasal Canula O2 Flow Rate 2 2 06/19/18 06/19/18 06/19/18 06/19/18 16:22 16:22 16:32 16:37 Temp 98.3 98.6 98.3 98.6 Pulse 83 83 88 Resp 18 18 18 B/P (MAP) 149/90 (109) 182/96 (124) Pulse Ox 100 100 100 O2 Delivery Non-Rebreather Non-Rebreather O2 Flow Rate 10 10 5 06/19/18 06/19/18 06/19/18 06/19/18 16:52 16:53 17:07 17:22 Temp 98.5 97.9 98.0 98.5 97.9 98.0 Pulse 91 87 89 78 Resp 18 18 18 18 B/P (MAP) 185/93 (123) 196/107 (136) 169/95 (119) Pulse Ox 99 100 99 98 O2 Delivery Non-Rebreather Nasal Canula Nasal Canula O2 Flow Rate 5 3 2 06/19/18 06/19/18 06/19/18 06/19/18 17:45 18:01 18:36 20:00 Temp 97.5 97.9 97.5 97.9 Pulse 77 63 Resp 17 18 22 B/P (MAP) 144/91 (108) 147/85 (105) Pulse Ox 99 98 99 O2 Delivery Nasal Canula Nasal Cannula Nasal Canula O2 Flow Rate 2 2.00 2.00 06/19/18 06/19/18 06/19/18 06/20/18 21:06 21:07 21:07 00:15 Temp 98.2 98.2 Pulse 98 92 61 Resp 18 18 22 B/P (MAP) 125/79 (94) Pulse Ox 97 98 95 O2 Delivery Nasal Cannula Nasal Canula O2 Flow Rate 2.00 2.00 06/20/18 06/20/18 06/20/18 06/20/18 02:33 03:19 03:19 05:35 Temp 98.6 98.6 Pulse 56 59 62 Resp 18 16 22 B/P (MAP) 135/78 (97) Pulse Ox 93 98 95 O2 Delivery Nasal Cannula Nasal Canula O2 Flow Rate 2.00 2.00 06/20/18 06/20/18 06/20/18 06/20/18 07:04 09:53 09:55 09:56 Temp 97.7 97.7 Pulse 70 68 70 67 Resp 20 12 20 12 B/P (MAP) 151/87 (108) Pulse Ox 96 97 96 97 O2 Delivery Room Air Room Air FiO2 21 06/20/18 06/20/18 06/20/18 10:30 10:31 10:36 B/P (MAP) 151/87 151/87 O2 Delivery Room Air Intake and Output 06/19/18 06/19/18 06/20/18 15:00 23:00 07:00 Intake Total 500 ml 5772 ml 500 ml Output Total 250 ml Balance 500 ml 5772 ml 250 ml General: Cooperative, mild distress, Other (More somnolent. Can't be specific as to where he feels bad.) Neck: Supple, No JVD Lungs: Clear to auscultation Heart: Regular rate, Normal S1, Normal S2, No murmurs Abdomen: Normal bowel sounds, Soft, No tenderness, No masses Neuro: Normal gait, Normal speech, Strength at 5/5 X4 ext, Normal tone, Sensation intact All Results(Lab/Rad) Laboratory Tests Test 06/19/18 21:10 06/20/18 05:00 White Blood Count 15.1 10^3/uL 12.6 10^3/uL Red Blood Count 4.77 10^6/uL 4.33 10^6/uL Hemoglobin 14.7 g/dL 13.2 g/dL Hematocrit 43.5 % 39.5 % Mean Corpuscular Volume 91.2 fL 91.2 fL Mean Corpuscular Hemoglobin 30.8 pg 30.5 pg Mean Corpuscular Hemoglobin Concent 33.8 g/dL 33.4 g/dL Red Cell Distribution Width 13.2 % 13.2 % Platelet Count 195 10^3/uL 195 10^3/uL Mean Platelet Volume 9.4 fL 9.8 fL Current Medications Medications (Trade) Dose Ordered Sig/Sophy Route PRN Reason Start Time Stop Time Status Last Admin Dose Admin Sodium Chloride 250 ml @ ud STK-MED ONCE IV 06/19/18 05:32 06/19/18 05:35 DC Cefazolin Sodium (Ancef) 1 gm STK-MED ONCE .ROUTE 06/19/18 05:32 06/19/18 05:36 DC Neostigmine Methylsulfate (Neostigmine) 10 mg STK-MED ONCE .ROUTE 06/19/18 06:49 06/19/18 06:52 DC Ondansetron HCl (Zofran) 4 mg STK-MED ONCE .ROUTE 06/19/18 06:49 06/19/18 06:52 DC Ketorolac Tromethamine (Toradol) 30 mg STK-MED ONCE .ROUTE 06/19/18 06:49 06/19/18 06:52 DC Rocuronium [place] (Zemuron) 100 mg STK-MED ONCE IV 06/19/18 06:49 06/19/18 06:52 DC Hydromorphone HCl (Dilaudid) 2 mg STK-MED ONCE .ROUTE 06/19/18 06:49 06/19/18 06:52 DC Propofol (Diprivan) 200 mg STK-MED ONCE IV 06/19/18 06:49 06/19/18 06:52 DC Dexamethasone Sodium Phosphate (Decadron) 20 mg STK-MED ONCE .ROUTE 06/19/18 06:50 06/19/18 06:53 DC Bupivacaine HCl (Sensorcaine 0.5% Vial) 5 mg STK-MED ONCE .ROUTE 06/19/18 06:50 06/19/18 06:53 DC Ropivacaine (Naropin 0.2% 40 Mg/20 ml Vial) 2 mg STK-MED ONCE .ROUTE 06/19/18 06:50 06/19/18 06:53 DC Lidocaine HCl (Lidocaine 2% Vial) 500 mg STK-MED ONCE .ROUTE 06/19/18 06:50 06/19/18 06:54 DC Dexmedetomidine HCl (Precedex) 200 mcg STK-MED ONCE IV 06/19/18 06:50 06/19/18 06:54 DC Tranexamic Acid (Tranexamic Acid) 1,000 mg STK-MED ONCE IV 06/19/18 07:24 06/19/18 07:27 DC Sodium Chloride (Sodium Chloride) 1,000 ml STK-MED ONCE IR 06/19/18 09:59 06/19/18 10:02 DC Sodium Chloride 100 ml @ ud STK-MED ONCE IV 06/19/18 09:59 06/19/18 10:02 DC Sodium Chloride 250 ml @ ud STK-MED ONCE IV 06/19/18 09:59 06/19/18 10:02 DC Sodium Chloride (NS 3000ml Irr) 3,000 ml STK-MED ONCE IR 06/19/18 09:59 06/19/18 10:02 DC Acetaminophen (Tylenol) 500 mg STK-MED ONCE PO 06/19/18 12:37 06/19/18 12:41 DC Gabapentin (Neurontin) 400 mg STK-MED ONCE .ROUTE 06/19/18 12:37 06/19/18 12:41 DC Acetaminophen (Tylenol) 1,000 mg OT PO 06/19/18 13:00 06/19/18 20:53 DC 06/19/18 12:49 Acetaminophen (Tylenol) 1,000 mg Q6H PO 06/19/18 13:00 07/19/18 12:59 06/20/18 03:01 Celecoxib (Celebrex) 200 mg Q12HR PO 06/19/18 21:00 06/19/18 21:00 DC Gabapentin (Neurontin) 400 mg Q24HRS PO 06/20/18 13:00 06/20/18 13:01 Sodium Chloride (Sodium Chloride) 1,000 ml STK-MED ONCE IR 06/19/18 13:25 06/19/18 13:28 DC Sodium Chloride 250 ml @ ud STK-MED ONCE IV 06/19/18 13:25 06/19/18 13:29 DC Sodium Chloride (NS 3000ml Irr) 3,000 ml STK-MED ONCE IR 06/19/18 13:25 06/19/18 13:29 DC Sodium Chloride 100 ml @ ud STK-MED ONCE IV 06/19/18 13:26 06/19/18 13:29 DC Albuterol/ Ipratropium (Duoneb 0.5 Mg-3 Mg/3 ml Soln) 3 ml STK-MED ONCE IH 06/19/18 16:29 06/19/18 16:32 DC Hydromorphone HCl (Dilaudid) 0.2 mg Q5MIN PRN IV PAIN MILD 06/19/18 17:00 06/20/18 08:26 DC 06/19/18 16:48 Fentanyl Citrate (Sublimaze) 12.5 mcg Q5MIN PRN IV PAIN 06/19/18 17:00 06/20/18 16:59 Ondansetron HCl (Zofran) 4 mg PRN PRN IV nv 06/19/18 17:00 06/19/18 20:57 DC Promethazine HCl (Phenergan) 6.25 mg PRN PRN IV NAUSEA / VOMITING 06/19/18 17:00 06/19/18 20:56 DC Diphenhydramine HCl (Benadryl) 25 mg Q5MIN PRN IV NAUSEA / VOMITING 06/19/18 17:00 06/19/18 20:56 DC Albuterol Sulfate (Ventolin) 2.5 mg OT PRN IH WHEEZING 06/19/18 17:00 06/19/18 20:54 DC Labetalol HCl (Trandate) 5 mg Q5MIN PRN IV HYPERTENSION 06/19/18 17:00 07/19/18 16:59 06/19/18 17:14 Tramadol HCl (Ultram) 50 mg Q4HR PO 06/19/18 20:00 07/19/18 19:59 06/20/18 10:32 Tramadol HCl (Ultram) 100 mg Q4HR PRN PO SEVERE PAIN 06/19/18 17:00 07/19/18 16:59 06/20/18 06:23 Rivaroxaban (Xarelto) 10 mg DAILY PO 06/20/18 09:00 07/20/18 08:59 06/20/18 10:30 Docusate Sodium (Colace) 100 mg DAILY PO 06/20/18 09:00 07/20/18 08:59 06/20/18 10:30 Throat Lozenges (Cepacol Sore Throat Lozenge) 1 each PRN PRN MM SORE THROAT 06/19/18 17:00 07/19/18 16:59 Famotidine (Pepcid) 20 mg DAILY PO 06/20/18 09:00 07/20/18 08:59 06/20/18 10:31 Celecoxib (Celebrex) 200 mg BID PO 06/19/18 21:00 07/19/18 20:59 06/20/18 10:32 Hydromorphone HCl (Dilaudid) 3 mg Q4H PRN IV PAIN 8-10 06/19/18 17:00 07/19/18 16:59 Ondansetron HCl (Zofran) 4 mg Q4H PRN IV NAUSEA / VOMITING 06/19/18 17:00 07/19/18 16:59 Albuterol/ Ipratropium (Duoneb 0.5 Mg-3 Mg/3 ml Soln) 3 ml STAT STAT IH 06/19/18 16:49 06/19/18 20:51 DC 06/19/18 16:54 Labetalol HCl (Trandate) 20 mg STK-MED ONCE IV 06/19/18 17:08 06/19/18 17:11 DC Albuterol Sulfate (Ventolin) 2.5 mg RTQ4 PRN IH WHEEZING 06/19/18 20:00 07/19/18 19:59 Hydrochlorothiazide (Hydrochlorothiazide) 12.5 mg DAILY PO 06/20/18 09:00 07/20/18 08:59 06/20/18 10:30 Lisinopril (Zestril) 5 mg DAILY PO 06/20/18 09:00 07/20/18 08:59 06/20/18 10:31 Montelukast Sodium (Singulair) 10 mg DAILY PO 06/20/18 09:00 07/20/18 08:59 06/20/18 10:31 Pantoprazole Sodium (Protonix) 40 mg DAILY PO 06/19/18 21:00 07/19/18 20:59 06/20/18 10:30 Epinephrine (S-2) 1 each STAT STAT IH 06/19/18 20:56 06/19/18 20:58 DC 06/19/18 21:02 Albuterol/ Ipratropium (Duoneb 0.5 Mg-3 Mg/3 ml Soln) 3 ml RTQ6H IH 06/19/18 21:00 07/19/18 20:59 06/20/18 09:52 Epinephrine (S-2) 1 each STK-MED ONCE IH 06/19/18 20:55 06/19/18 20:59 DC Calcium Carbonate/ Glycine (Tums) 500 mg STK-MED ONCE .ROUTE 06/19/18 20:59 06/19/18 21:02 DC Tamsulosin HCl (Flomax) 0.4 mg DAILY PO 06/20/18 09:00 07/20/18 08:59 06/20/18 10:30 Course Sepsis Screening Results: Posi: NEGATIVE Sepsis Qualifier/Stage: NO DEFINITE RISK Duration or Total Time Spent w: 20 Vitals & review Data Vital Sign - Last 24 Hours 06/19/18 06/19/18 06/19/18 06/19/18 12:10 12:10 12:58 13:04 Temp 98.6 98.6 Pulse 93 73 73 Resp 16 18 16 B/P (MAP) 140/81 (100) 145/86 (105) 135/74 (94) Pulse Ox 95 97 98 O2 Delivery Room Air Room Air Nasal Canula Nasal Canula O2 Flow Rate 2 2 06/19/18 06/19/18 06/19/18 06/19/18 16:22 16:22 16:32 16:37 Temp 98.3 98.6 98.3 98.6 Pulse 83 83 88 Resp 18 18 18 B/P (MAP) 149/90 (109) 182/96 (124) Pulse Ox 100 100 100 O2 Delivery Non-Rebreather Non-Rebreather O2 Flow Rate 10 10 5 06/19/18 06/19/18 06/19/18 06/19/18 16:52 16:53 17:07 17:22 Temp 98.5 97.9 98.0 98.5 97.9 98.0 Pulse 91 87 89 78 Resp 18 18 18 18 B/P (MAP) 185/93 (123) 196/107 (136) 169/95 (119) Pulse Ox 99 100 99 98 O2 Delivery Non-Rebreather Nasal Canula Nasal Canula O2 Flow Rate 5 3 2 06/19/18 06/19/18 06/19/18 06/19/18 17:45 18:01 18:36 20:00 Temp 97.5 97.9 97.5 97.9 Pulse 77 63 Resp 17 18 22 B/P (MAP) 144/91 (108) 147/85 (105) Pulse Ox 99 98 99 O2 Delivery Nasal Canula Nasal Cannula Nasal Canula O2 Flow Rate 2 2.00 2.00 06/19/18 06/19/18 06/19/18 06/20/18 21:06 21:07 21:07 00:15 Temp 98.2 98.2 Pulse 98 92 61 Resp 18 18 22 B/P (MAP) 125/79 (94) Pulse Ox 97 98 95 O2 Delivery Nasal Cannula Nasal Canula O2 Flow Rate 2.00 2.00 06/20/18 06/20/18 06/20/18 06/20/18 02:33 03:19 03:19 05:35 Temp 98.6 98.6 Pulse 56 59 62 Resp 18 16 22 B/P (MAP) 135/78 (97) Pulse Ox 93 98 95 O2 Delivery Nasal Cannula Nasal Canula O2 Flow Rate 2.00 2.00 06/20/18 06/20/18 06/20/18 06/20/18 07:04 09:53 09:55 09:56 Temp 97.7 97.7 Pulse 70 68 70 67 Resp 20 12 20 12 B/P (MAP) 151/87 (108) Pulse Ox 96 97 96 97 O2 Delivery Room Air Room Air FiO2 21 06/20/18 06/20/18 06/20/18 10:30 10:31 10:36 B/P (MAP) 151/87 151/87 O2 Delivery Room Air Intake and Output 06/19/18 06/19/18 06/20/18 15:00 23:00 07:00 Intake Total 500 ml 5772 ml 500 ml Output Total 250 ml Balance 500 ml 5772 ml 250 ml Laboratory Tests Test 06/19/18 21:10 06/20/18 05:00 White Blood Count 15.1 10^3/uL 12.6 10^3/uL Red Blood Count 4.77 10^6/uL 4.33 10^6/uL Hemoglobin 14.7 g/dL 13.2 g/dL Hematocrit 43.5 % 39.5 % Mean Corpuscular Volume 91.2 fL 91.2 fL Mean Corpuscular Hemoglobin 30.8 pg 30.5 pg Mean Corpuscular Hemoglobin Concent 33.8 g/dL 33.4 g/dL Red Cell Distribution Width 13.2 % 13.2 % Platelet Count 195 10^3/uL 195 10^3/uL Mean Platelet Volume 9.4 fL 9.8 fL Current Medications Medications (Trade) Dose Ordered Sig/Sophy PRN Reason Start Time Stop Time Status Last Admin Acetaminophen (Tylenol) 1,000 mg Q6H 06/19/18 13:00 07/19/18 12:59 06/20/18 03:01 Albuterol Sulfate (Ventolin) 2.5 mg RTQ4 PRN WHEEZING 06/19/18 20:00 07/19/18 19:59 Albuterol/ Ipratropium (Duoneb 0.5 Mg-3 Mg/3 ml Soln) 3 ml RTQ6H 06/19/18 21:00 07/19/18 20:59 06/20/18 09:52 Celecoxib (Celebrex) 200 mg BID 06/19/18 21:00 07/19/18 20:59 06/20/18 10:32 Docusate Sodium (Colace) 100 mg DAILY 06/20/18 09:00 07/20/18 08:59 06/20/18 10:30 Famotidine (Pepcid) 20 mg DAILY 06/20/18 09:00 07/20/18 08:59 06/20/18 10:31 Fentanyl Citrate (Sublimaze) 12.5 mcg Q5MIN PRN PAIN 06/19/18 17:00 06/20/18 16:59 Gabapentin (Neurontin) 400 mg Q24HRS 06/20/18 13:00 06/20/18 13:01 Hydrochlorothiazide (Hydrochlorothiazide) 12.5 mg DAILY 06/20/18 09:00 07/20/18 08:59 06/20/18 10:30 Hydromorphone HCl (Dilaudid) 3 mg Q4H PRN PAIN 8-10 06/19/18 17:00 07/19/18 16:59 Labetalol HCl (Trandate) 5 mg Q5MIN PRN HYPERTENSION 06/19/18 17:00 07/19/18 16:59 06/19/18 17:14 Lisinopril (Zestril) 5 mg DAILY 06/20/18 09:00 07/20/18 08:59 06/20/18 10:31 Montelukast Sodium (Singulair) 10 mg DAILY 06/20/18 09:00 07/20/18 08:59 06/20/18 10:31 Ondansetron HCl (Zofran) 4 mg Q4H PRN NAUSEA / VOMITING 06/19/18 17:00 07/19/18 16:59 Pantoprazole Sodium (Protonix) 40 mg DAILY 06/19/18 21:00 07/19/18 20:59 06/20/18 10:30 Rivaroxaban (Xarelto) 10 mg DAILY 06/20/18 09:00 07/20/18 08:59 06/20/18 10:30 Tamsulosin HCl (Flomax) 0.4 mg DAILY 06/20/18 09:00 07/20/18 08:59 06/20/18 10:30 Throat Lozenges (Cepacol Sore Throat Lozenge) 1 each PRN PRN SORE THROAT 06/19/18 17:00 07/19/18 16:59 Tramadol HCl (Ultram) 50 mg Q4HR 06/19/18 20:00 07/19/18 19:59 06/20/18 10:32 Tramadol HCl (Ultram) 100 mg Q4HR PRN SEVERE PAIN 06/19/18 17:00 07/19/18 16:59 06/20/18 06:23 Sepsis Infection Criteria Pres: None LEVEL 1 SEPSIS INFECTION CRITE: Recent Invasive Procedure LEVEL 2-SIRS (LIST ALL THAT AP: None/Not assessed Cardiovascular Evidence: Not Assessed or None Hematologic Evidence: None/Not assessed Hepatic Evidence: None/Not assessed Metabolic Evidence: None/Not assessed Neurological Evidence: None/Not assessed Respiratory Evidence: None/Not assessed Renal Evidence: None/Not assessed O2 Sat by Pulse Oximetry: 94 Oxygen Flow Rate: 1.00 Assessment/Plan Assessment/Plan Assessment/Plan 1. OA R knee: s/p TKA. Ortho managing, cont pain control and PT. Awaiting placement. 2. HTN: cont HCTZ/DIANA. Numbers stable. 3. BPH: will start flomax 4. COPD: cont Nebs, O2 support 5. PPx: PPI, Xarelto 6. Laryngeal irritation: 2/2 intubation and hx of Tracheostomy. Racemic epi ordered last night x 1. Cont nebs. O2 support 7.) Hyponatremia - Worse today. Looks like hypovolemic hyponatremia. - Start NS at 75 per hour. 8.) Mental Status Change / Malaise - Likely secondary to hyponatremia. Should autocorrect. Will also check UA.. ELIA CUMMINGS MD Jun 22, 2018 17:04
[2018-06-22 18:01] LABS: CALCIUM 8.6 mg/dL (8.4-10.5); CARBON DIOXIDE 27.6 mmol/L (20.0-32)
--- NOTE | 2018-06-22 18:15 | NUR ---
NEURO IN ASSESSING PT AT THIS TIME. NEURO CHECKS COMPLETE. PT ALERT AND ORIENT X3. NOTED NO DEFICITS TO ANY EXTREMITIES. PT REMAINS AT BEDSIDE AND STATES THAT HE CONTINUES TO BE ABOUT THE SAME. PT CONTINUES TO BE VERY DROWSY, BUT STILL AROUSES EASILY.
--- NOTE | 2018-06-22 18:30 | NUR ---
DR NOTIFIED DR CUMMINGS NOTIFIED OF NEW LAB RESULTS. NEW ORDERS RECEIVED AND ENTERED.
--- NOTE | 2018-06-22 18:35 | NUR ---
REPORT RECEIVED FROM NIDA VARGAS. PATIENT SITTING UP IN RECLINER. AWAKE AND ALERT. PATIENT HUMMING CONTINUOUSLY. DROWSY AND SLEEPING AT INTERVALS BUT AWAKENS QUICKLY. ANSWERS QUESTIONS APPROPRIATELY BUT AT TIMES REPEATS SELF AND IS UNABLE TO REMEMBER WHY HE IS IN THE HOSPITAL AND THAT HE JUST HAD HIS SURGERY. PATIENT STATES "I HAD IT SEVERAL WEEKS AGO." AT BEDSIDE. PATIENT DENIES PAIN OR DISCOMFORT AT PRESENT.
--- NOTE | 2018-06-22 18:35 | NUR ---
REPORT REPORT GIVEN TO Jen PARSONS RN.
[2018-06-22] MEDS ORDERED: LASIX IV ONE (19:00)
[2018-06-22] MEDS ORDERED: VENTOLIN IH ONE (19:00)
--- NOTE | 2018-06-22 19:10 | NUR ---
CT PT OFF FLOOR WITH CT STAFF.
--- NOTE | 2018-06-22 19:15 | NUR ---
OFF FLOOR FOR CT SCAN
--- NOTE | 2018-06-22 19:30 | NUR ---
PATIENT RETURNED TO ROOM FROM CT SCAN. PATIENT TRANSFERRED FROM [facility] TO [facility]. PATIENT HUMMING. PATIENT ALERT TO NAME, PLACE, OCCASIONALLY GETS FACTS CONFUSED. ANSWERS MOST QUESTIONS APPROPRIATELY. DENIES PAIN OR DISCOMFORT. DROWSY. AT BEDSIDE. RT PERFORMING BREATHING TX. VS STABLE. NO DISTRESS NOTED. INFORMED PATIENT RE: LASIX TO BE ADMINISTERED. PATIENT REFUSES LOPEZ. PATIENT FREQUENTLY STATING HE IS READY TO GO HOME. INFORMING PATIENT HE HAS TO STAY HERE FOR THE NIGHT. PATIENT AGREEABLE.
--- NOTE | 2018-06-22 19:42 | DIREP ---
PROCEDURE:CT HEAD WITHOUT CONTRAST TECHNIQUE:Axial cuts were obtained through the head, without intravenous contrast material. The images were viewed at brain and bone settings. COMPARISON:None. INDICATIONS:altered mental status FINDINGS: VENTRICLES:Normal. CEREBRUM:Normal. CEREBELLUM:Normal. BRAINSTEM:Normal. SKULL:Normal. SINUSES:Normal. OTHER:Negative. CONCLUSION:Normal examination. Dictated by: Humphrey Husain M.D. on 06/22/2018 at 07:40 PM
[2018-06-22 19:46] VITALS: BP 167/80
[2018-06-22] MEDS ORDERED: SODIUM CHLORIDE PO ONE ×2 (20:44→21:18)
[2018-06-22] MEDS: SODIUM CHLORIDE PO SCH (21:00)
[2018-06-22 22:43] LABS: CALCIUM 9.2 mg/dL (8.4-10.5); CARBON DIOXIDE 25.2 mmol/L (20.0-32)
--- NOTE | 2018-06-22 22:55 | NUR ---
NOTIFIED DR CUMMINGS OF LAB RESULTS. ORDERS RECEIVED FOR CMP AT 05OOAM. IF NA IS LOWER THEN START HYPERTONIC SALINE AT 75CC/HR.
[2018-06-23 00:14] VITALS: BP 147/85
[2018-06-23 00:26] LABS: BILIRUBIN,URINE NEGATIVE (NEGATIVE); UROBILINOGEN,URINE NORMAL (NEGATIVE)
[2018-06-23 00:38] LABS: APPEARANCE,URINE CLEAR (CLEAR); UA COLOR YELLOW (YELLOW)
[2018-06-23] MEDS: TYLENOL PO SCH ×4 (01:15→19:00)
[2018-06-23] MEDS: DUONEB 0.5 MG-3 MG/3 ML SOLN IH SCH ×3 (02:30→14:40)
[2018-06-23] MEDS: ULTRAM PO SCH ×6 (04:00→21:15)
[2018-06-23 04:04] VITALS: BP 168/85
[2018-06-23] MEDS: NS 1000ML 1,000 ML IV SCH (05:21)
--- NOTE | 2018-06-23 05:22 | NUR ---
PATIENT UP TO BSC FOR BOWEL MOVEMENT. PATIENT UNABLE TO HAVE BOWEL MOVEMENT. SITTING UP IN RECLINER. DENIES PAIN OR DISCOMFORT. CONTINUES TO FREQUENTLY GROAN AND HUM. FREQUENTLY UP AND DOWN. DROWSY BUT FREQUENTLY AWAKE. NO DISTRESS NOTED AT PRESENT. AND GRANDDAUGHTER AT BEDSIDE.
[2018-06-23 06:05] LABS: CALCIUM 8.8 mg/dL (8.4-10.5); CARBON DIOXIDE 26.8 mmol/L (20.0-32)
--- NOTE | 2018-06-23 06:45 | NUR ---
DR CUMMINGS NOTIFIED OF AM CMP RESULTS AND NA LEVEL. NO NEW ORDERS RECEIVED. WILL SEE PATIENT IN THE NEXT 30 MINUTES.
--- NOTE | 2018-06-23 07:51 | NUR ---
REPORT RECEIVED REPORT, ASSUMED CARE FOR PATIENT AT THIS TIME.
[2018-06-23 08:43] VITALS: BP 161/98
[2018-06-23] MEDS: MUCINEX PO SCH ×2 (09:37→21:13)
[2018-06-23] MEDS: PEPCID PO SCH (09:37)
[2018-06-23] MEDS: ZESTRIL PO SCH (09:37)
[2018-06-23] MEDS: XARELTO PO SCH (09:37)
[2018-06-23] MEDS: HYDROCHLOROTHIAZIDE PO SCH (09:38)
[2018-06-23] MEDS: COLACE PO SCH (09:38)
[2018-06-23] MEDS: PROTONIX PO SCH (09:38)
[2018-06-23] MEDS: CELEBREX PO SCH ×2 (09:39→21:12)
[2018-06-23] MEDS: SODIUM CHLORIDE PO SCH ×3 (09:40→21:13)
[2018-06-23] MEDS: SINGULAIR PO SCH (09:40)
[2018-06-23] MEDS: FLOMAX PO SCH (09:41)
[2018-06-23] MEDS: NS 1000ML/KCL 20MEQ 1,000 ML IV SCH ×2 (11:29→21:12)
[2018-06-23] MEDS: ZOFRAN IV PRN (11:29)
[2018-06-23] MEDS: S-2 IH SCH ×4 (12:00→21:10)
[2018-06-23] MEDS: LACTATED RINGERS 1,000 ML IV SCH (12:00)
[2018-06-23 12:33] VITALS: BP 143/90
[2018-06-23] MEDS ORDERED: LASIX IV ONE (14:00)
[2018-06-23] MEDS ORDERED: LASIX ONE (15:38)
[2018-06-23 18:22] VITALS: BP 149/86
[2018-06-23 20:43] VITALS: BP 155/80
[2018-06-24] MEDS: TYLENOL PO SCH ×4 (01:00→20:22)
[2018-06-24] MEDS: S-2 IH SCH ×8 (01:39→18:00)
[2018-06-24] MEDS: ULTRAM PO PRN ×3 (02:56→23:40)
[2018-06-24] MEDS: DUONEB 0.5 MG-3 MG/3 ML SOLN IH SCH ×4 (02:58→20:34)
[2018-06-24] MEDS: ULTRAM PO SCH ×6 (04:00→20:00)
[2018-06-24 04:30] VITALS: BP 164/90
[2018-06-24 06:34] LABS: HEMOGLOBIN 11.7 g/dL (13.9-16.3); MEAN CELL HGB 30.5 pg (26-34); MEAN CELL HGB CONCENTRATION 36.1 g/dL (33-37); MEAN CORP VOLUME 84.6 fL (78-100); PLATELET COUNT 198 10^3/uL (150-400); RED CELL DISTRIBUTION WIDTH 12.5 % (11.5-14.5); WHITE BLOOD CELL 8.9 10^3/uL (4.5-11.0)
[2018-06-24] MEDS: FLOMAX PO SCH (08:52)
[2018-06-24] MEDS: SODIUM CHLORIDE PO SCH ×3 (08:52→20:23)
[2018-06-24] MEDS: COLACE PO SCH (08:52)
[2018-06-24] MEDS: CELEBREX PO SCH ×2 (08:53→20:23)
[2018-06-24] MEDS: SINGULAIR PO SCH (08:53)
[2018-06-24] MEDS: PROTONIX PO SCH (08:53)
[2018-06-24] MEDS: MUCINEX PO SCH ×2 (08:53→20:22)
[2018-06-24] MEDS: PEPCID PO SCH (08:56)
[2018-06-24] MEDS: ZESTRIL PO SCH (08:57)
[2018-06-24] MEDS: XARELTO PO SCH (08:57)
[2018-06-24] MEDS: NICOTINE 14MG PATCH TD SCH (08:57)
[2018-06-24] MEDS: HYDROCHLOROTHIAZIDE PO SCH (08:57)
[2018-06-24] MEDS: NS 1000ML/KCL 20MEQ 1,000 ML IV SCH ×3 (08:58→18:21)
--- NOTE | 2018-06-24 09:01 | PRM.PN ---
Subjective Subjective Date: Jun 24, 2018 Time: 09:00 Subjective Pt feeling better today; walked with PT; has some stridor 2/15 Pain ok Still somewhat confused VSS Na 117 Cont with PT 2/16 Pain ok VSS HGB 11.7 Still confused Cont with PT Patient History: Alzheimer's disease 33 FATHER, , Age:87 Asthma V19 CHILD Hypertension 32 MOTHER, , Age:89 No known health problems G8 SISTER V19 CHILD V19 CHILD Parkinson's disease 33 FATHER, , Age:87 No Family History of: Cerebrovascular disorder Chronic obstructive pulmonary disease Congestive heart failure Diabetes insipidus Diabetes mellitus VTE VTE Risk Total Score: >5 VTE Risk Score VTE Risk: Score 0-1 = Low Risk (Aggressive mobilization; early ambulation; no VTE prophylaxis required) Score 2: Moderate Risk (Intermittent/Pneumatic Compression Device OR Lovenox/Heparin/Coumadin) Score 3-4: High Risk (Intermittent/Pneumatic Compression Device AND Lovenox/Heparin/Coumadin) Score > or =5: Highest Risk (Intermittent/Pneumatic Compression Device AND Lovenox/Heparin/Coumadin) Antico:Hep/LMWH/Coum/Xarelto: Yes Mechanical device ordered: Yes Review of Systems Constitutional: No: Fever, Chills Eyes: No: Vision change, Conjunctivae inflammation, Eyelid inflammation ENT: Other (hoarseness); No: Nose discharge, Nose congestion Respiratory: Cough, Dry; No: Shortness of breath, SOB with excertion Cardiovascular: No: Chest Pain, Palpitations, Edema Gastrointestinal: No: Nausea, Vomiting, Abdominal Pain, Diarrhea, Constipation Genitourinary: No Hematuria; Retention Musculoskeletal: No: neck pain, back pain Skin: No: Rash, Lesions, Jaundice, Bruising Neurological: No: Numbness, Incoordination, Change in speech, Confusion, Seizures Allergies: Coded Allergies: No Known Allergies (Unverified , 06/14/18) Scheduled Hydrochlorothiazide (Hydrochlorothiazide), 1 CAP PO DAILY, (Reported) Lisinopril (Lisinopril), 1 TAB PO DAILY, (Reported) Metronidazole (Metrocream), 1 APPLIC TP BID, (Reported) Montelukast Sodium (Singulair), 1 TAB PO DAILY, (Reported) Scheduled PRN Ibuprofen (Advil), 600 MG PO BID PRN for PAIN, (Reported) Pantoprazole Sodium (Protonix), 1 TAB PO DAILY PRN for INDIGESTION, (Reported) Objective Vitals and I/O Vital Sign - Last 24 Hours 06/19/18 06/19/18 06/19/18 06/19/18 12:10 12:10 12:58 13:04 Temp 98.6 98.6 Pulse 93 73 73 Resp 16 18 16 B/P (MAP) 140/81 (100) 145/86 (105) 135/74 (94) Pulse Ox 95 97 98 O2 Delivery Room Air Room Air Nasal Canula Nasal Canula O2 Flow Rate 2 2 06/19/18 06/19/18 06/19/18 06/19/18 16:22 16:22 16:32 16:37 Temp 98.3 98.6 98.3 98.6 Pulse 83 83 88 Resp 18 18 18 B/P (MAP) 149/90 (109) 182/96 (124) Pulse Ox 100 100 100 O2 Delivery Non-Rebreather Non-Rebreather O2 Flow Rate 10 10 5 06/19/18 06/19/18 06/19/18 06/19/18 16:52 16:53 17:07 17:22 Temp 98.5 97.9 98.0 98.5 97.9 98.0 Pulse 91 87 89 78 Resp 18 18 18 18 B/P (MAP) 185/93 (123) 196/107 (136) 169/95 (119) Pulse Ox 99 100 99 98 O2 Delivery Non-Rebreather Nasal Canula Nasal Canula O2 Flow Rate 5 3 2 06/19/18 06/19/18 06/19/18 06/19/18 17:45 18:01 18:36 20:00 Temp 97.5 97.9 97.5 97.9 Pulse 77 63 Resp 18 22 B/P (MAP) 144/91 (108) 147/85 (105) Pulse Ox 99 98 99 O2 Delivery Nasal Canula Nasal Cannula Nasal Canula O2 Flow Rate 2 2.00 2.00 06/19/18 06/19/18 206/20/18 21:06 21:07 21:07 00:15 Temp 98.2 98.2 Pulse 98 92 61 Resp 18 22 B/P (MAP) 125/79 (94) Pulse Ox 97 98 95 O2 Delivery Nasal Cannula Nasal Canula O2 Flow Rate 2.00 2.00 06/20/18 06/20/18 06/20/18 06/20/18 02:33 03:19 03:19 05:35 Temp 98.6 98.6 Pulse 56 59 62 Resp 18 16 22 B/P (MAP) 135/78 (97) Pulse Ox 93 98 95 O2 Delivery Nasal Cannula Nasal Canula O2 Flow Rate 2.00 2.00 06/20/18 06/20/18 06/20/18 06/20/18 07:04 09:53 09:55 09:56 Temp 97.7 97.7 Pulse 70 68 70 67 Resp 20 12 20 12 B/P (MAP) 151/87 (108) Pulse Ox 96 97 96 97 O2 Delivery Room Air Room Air FiO2 21 06/20/18 06/20/18 06/20/18 10:30 10:31 10:36 B/P (MAP) 151/87 151/87 O2 Delivery Room Air Intake and Output 06/19/18 06/19/18 06/20/18 15:00 23:00 07:00 Intake Total 500 ml 5772 ml 500 ml Output Total 250 ml Balance 500 ml 5772 ml 250 ml General: Oriented X3, Cooperative, No acute distress, Other (More somnolent. Can't be specific as to where he feels bad.) HEENT: Atraumatic, PERRLA, Mucous membr. moist/pink Neck: Supple, No JVD, No thyromegaly, +2 carotid pulse wo bruit, No LAD Lungs: Clear to auscultation, Other (upper stridor noted) Heart: Regular rate, Normal S1, Normal S2, No murmurs Abdomen: Normal bowel sounds, Soft, No tenderness, No masses Extremities: No clubbing, No cyanosis, No edema Skin: No breakdown, No significant lesion Neuro: Normal gait, Normal speech, Strength at 5/5 X4 ext, Normal tone, Sensation intact Psych/Mental Status: Mental status NL, Mood NL All Results(Lab/Rad) Laboratory Tests Test 06/19/18 21:10 06/20/18 05:00 White Blood Count 15.1 10^3/uL 12.6 10^3/uL Red Blood Count 4.77 10^6/uL 4.33 10^6/uL Hemoglobin 14.7 g/dL 13.2 g/dL Hematocrit 43.5 % 39.5 % Mean Corpuscular Volume 91.2 fL 91.2 fL Mean Corpuscular Hemoglobin 30.8 pg 30.5 pg Mean Corpuscular Hemoglobin Concent 33.8 g/dL 33.4 g/dL Red Cell Distribution Width 13.2 % 13.2 % Platelet Count 195 10^3/uL 195 10^3/uL Mean Platelet Volume 9.4 fL 9.8 fL Current Medications Medications (Trade) Dose Ordered Sig/Sophy Route PRN Reason Start Time Stop Time Status Last Admin Dose Admin Sodium Chloride 250 ml @ ud STK-MED ONCE IV 06/19/18 05:32 06/19/18 05:35 DC Cefazolin Sodium (Ancef) 1 gm STK-MED ONCE .ROUTE 06/19/18 05:32 06/19/18 05:36 DC Neostigmine Methylsulfate (Neostigmine) 10 mg STK-MED ONCE .ROUTE 06/19/18 06:49 06/19/18 06:52 DC Ondansetron HCl (Zofran) 4 mg STK-MED ONCE .ROUTE 06/19/18 06:49 06/19/18 06:52 DC Ketorolac Tromethamine (Toradol) 30 mg STK-MED ONCE .ROUTE 06/19/18 06:49 06/19/18 06:52 DC Rocuronium Stuart (Zemuron) 100 mg STK-MED ONCE IV 06/19/18 06:49 06/19/18 06:52 DC Hydromorphone HCl (Dilaudid) 2 mg STK-MED ONCE .ROUTE 06/19/18 06:49 06/19/18 06:52 DC Propofol (Diprivan) 200 mg STK-MED ONCE IV 06/19/18 06:49 06/19/18 06:52 DC Dexamethasone Sodium Phosphate (Decadron) 20 mg STK-MED ONCE .ROUTE 06/19/18 06:50 06/19/18 06:53 DC Bupivacaine HCl (Sensorcaine 0.5% Vial) 5 mg STK-MED ONCE .ROUTE 06/19/18 06:50 06/19/18 06:53 DC Ropivacaine (Naropin 0.2% 40 Mg/20 ml Vial) 2 mg STK-MED ONCE .ROUTE 06/19/18 06:50 06/19/18 06:53 DC Lidocaine HCl (Lidocaine 2% Vial) 500 mg STK-MED ONCE .ROUTE 06/19/18 06:50 06/19/18 06:54 DC Dexmedetomidine HCl (Precedex) 200 mcg STK-MED ONCE IV 06/19/18 06:50 06/19/18 06:54 DC Tranexamic Acid (Tranexamic Acid) 1,000 mg STK-MED ONCE IV 06/19/18 07:24 06/19/18 07:27 DC Sodium Chloride (Sodium Chloride) 1,000 ml STK-MED ONCE IR 06/19/18 09:59 06/19/18 10:02 DC Sodium Chloride 100 ml @ ud STK-MED ONCE IV 06/19/18 09:59 06/19/18 10:02 DC Sodium Chloride 250 ml @ ud STK-MED ONCE IV 06/19/18 09:59 06/19/18 10:02 DC Sodium Chloride (NS 3000ml Irr) 3,000 ml STK-MED ONCE IR 06/19/18 09:59 06/19/18 10:02 DC Acetaminophen (Tylenol) 500 mg STK-MED ONCE PO 06/19/18 12:37 06/19/18 12:41 DC Gabapentin (Neurontin) 400 mg STK-MED ONCE .ROUTE 06/19/18 12:37 06/19/18 12:41 DC Acetaminophen (Tylenol) 1,000 mg OT PO 06/19/18 13:00 06/19/18 20:53 DC 06/19/18 12:49 Acetaminophen (Tylenol) 1,000 mg Q6H PO 06/19/18 13:00 07/19/18 12:59 06/20/18 03:01 Celecoxib (Celebrex) 200 mg Q12HR PO 06/19/18 21:00 06/19/18 21:00 DC Gabapentin (Neurontin) 400 mg Q24HRS PO 06/20/18 13:00 06/20/18 13:01 Sodium Chloride (Sodium Chloride) 1,000 ml STK-MED ONCE IR 06/19/18 13:25 06/19/18 13:28 DC Sodium Chloride 250 ml @ ud STK-MED ONCE IV 06/19/18 13:25 06/19/18 13:29 DC Sodium Chloride (NS 3000ml Irr) 3,000 ml STK-MED ONCE IR 06/19/18 13:25 06/19/18 13:29 DC Sodium Chloride 100 ml @ ud STK-MED ONCE IV 06/19/18 13:26 06/19/18 13:29 DC Albuterol/ Ipratropium (Duoneb 0.5 Mg-3 Mg/3 ml Soln) 3 ml STK-MED ONCE IH 06/19/18 16:29 06/19/18 16:32 DC Hydromorphone HCl (Dilaudid) 0.2 mg Q5MIN PRN IV PAIN MILD 06/19/18 17:00 06/20/18 08:26 DC 06/19/18 16:48 Fentanyl Citrate (Sublimaze) 12.5 mcg Q5MIN PRN IV PAIN 06/19/18 17:00 06/20/18 16:59 Ondansetron HCl (Zofran) 4 mg PRN PRN IV nv 06/19/18 17:00 06/19/18 20:57 DC Promethazine HCl (Phenergan) 6.25 mg PRN PRN IV NAUSEA / VOMITING 06/19/18 17:00 06/19/18 20:56 DC Diphenhydramine HCl (Benadryl) 25 mg Q5MIN PRN IV NAUSEA / VOMITING 06/19/18 17:00 06/19/18 20:56 DC Albuterol Sulfate (Ventolin) 2.5 mg OT PRN IH WHEEZING 06/19/18 17:00 06/19/18 20:54 DC Labetalol HCl (Trandate) 5 mg Q5MIN PRN IV HYPERTENSION 06/19/18 17:00 07/19/18 16:59 06/19/18 17:14 Tramadol HCl (Ultram) 50 mg Q4HR PO 06/19/18 20:00 07/19/18 19:59 06/20/18 10:32 Tramadol HCl (Ultram) 100 mg Q4HR PRN PO SEVERE PAIN 06/19/18 17:00 07/19/18 16:59 06/20/18 06:23 Rivaroxaban (Xarelto) 10 mg DAILY PO 06/20/18 09:00 07/20/18 08:59 06/20/18 10:30 Docusate Sodium (Colace) 100 mg DAILY PO 06/20/18 09:00 07/20/18 08:59 06/20/18 10:30 Throat Lozenges (Cepacol Sore Throat Lozenge) 1 each PRN PRN MM SORE THROAT 06/19/18 17:00 07/19/18 16:59 Famotidine (Pepcid) 20 mg DAILY PO 06/20/18 09:00 07/20/18 08:59 06/20/18 10:31 Celecoxib (Celebrex) 200 mg BID PO 06/19/18 21:00 07/19/18 20:59 06/20/18 10:32 Hydromorphone HCl (Dilaudid) 3 mg Q4H PRN IV PAIN 8-10 06/19/18 17:00 07/19/18 16:59 Ondansetron HCl (Zofran) 4 mg Q4H PRN IV NAUSEA / VOMITING 06/19/18 17:00 07/19/18 16:59 Albuterol/ Ipratropium (Duoneb 0.5 Mg-3 Mg/3 ml Soln) 3 ml STAT STAT IH 06/19/18 16:49 06/19/18 20:51 DC 06/19/18 16:54 Labetalol HCl (Trandate) 20 mg STK-MED ONCE IV 06/19/18 17:08 06/19/18 17:11 DC Albuterol Sulfate (Ventolin) 2.5 mg RTQ4 PRN IH WHEEZING 06/19/18 20:00 07/19/18 19:59 Hydrochlorothiazide (Hydrochlorothiazide) 12.5 mg DAILY PO 06/20/18 09:00 07/20/18 08:59 06/20/18 10:30 Lisinopril (Zestril) 5 mg DAILY PO 06/20/18 09:00 07/20/18 08:59 06/20/18 10:31 Montelukast Sodium (Singulair) 10 mg DAILY PO 06/20/18 09:00 07/20/18 08:59 06/20/18 10:31 Pantoprazole Sodium (Protonix) 40 mg DAILY PO 06/19/18 21:00 07/19/18 20:59 06/20/18 10:30 Epinephrine (S-2) 1 each STAT STAT IH 2/11/19 20:56 06/19/18 20:58 DC 06/19/18 21:02 Albuterol/ Ipratropium (Duoneb 0.5 Mg-3 Mg/3 ml Soln) 3 ml RTQ6H IH 06/19/18 21:00 07/19/18 20:59 06/20/18 09:52 Epinephrine (S-2) 1 each STK-MED ONCE IH 06/19/18 20:55 06/19/18 20:59 DC Calcium Carbonate/ Glycine (Tums) 500 mg STK-MED ONCE .ROUTE 06/19/18 20:59 06/19/18 21:02 DC Tamsulosin HCl (Flomax) 0.4 mg DAILY PO 06/20/18 09:00 07/20/18 08:59 06/20/18 10:30 Course Sepsis Screening Results: Posi: NEGATIVE Sepsis Qualifier/Stage: NO DEFINITE RISK Duration or Total Time Spent w: 20 Vitals & review Data Vital Sign - Last 24 Hours 06/19/18 06/19/18 06/19/18 06/19/18 12:10 12:10 12:58 13:04 Temp 98.6 98.6 Pulse 93 73 73 Resp 16 18 16 B/P (MAP) 140/81 (100) 145/86 (105) 135/74 (94) Pulse Ox 95 97 98 O2 Delivery Room Air Room Air Nasal Canula Nasal Canula O2 Flow Rate 2 2 06/19/18 06/19/18 06/19/18 06/19/18 16:22 16:22 16:32 16:37 Temp 98.3 98.6 98.3 98.6 Pulse 83 83 88 Resp 18 18 18 B/P (MAP) 149/90 (109) 182/96 (124) Pulse Ox 100 100 100 O2 Delivery Non-Rebreather Non-Rebreather O2 Flow Rate 10 10 5 06/19/18 06/19/18 06/19/18 06/19/18 16:52 16:53 17:07 17:22 Temp 98.5 97.9 98.0 98.5 97.9 98.0 Pulse 91 87 89 78 Resp 18 18 18 18 B/P (MAP) 185/93 (123) 196/107 (136) 169/95 (119) Pulse Ox 99 100 99 98 O2 Delivery Non-Rebreather Nasal Canula Nasal Canula O2 Flow Rate 5 3 2 06/19/18 06/19/18 06/19/18 06/19/18 17:45 18:01 18:36 20:00 Temp 97.5 97.9 97.5 97.9 Pulse 77 63 Resp 17 18 22 B/P (MAP) 144/91 (108) 147/85 (105) Pulse Ox 99 98 99 O2 Delivery Nasal Canula Nasal Cannula Nasal Canula O2 Flow Rate 2 2.00 2.00 06/19/18 06/19/18 06/19/18 06/20/18 21:06 21:07 21:07 00:15 Temp 98.2 98.2 Pulse 98 92 61 Resp 18 18 22 B/P (MAP) 125/79 (94) Pulse Ox 97 98 95 O2 Delivery Nasal Cannula Nasal Canula O2 Flow Rate 2.00 2.00 06/20/18 06/20/18 06/20/18 06/20/18 02:33 03:19 03:19 05:35 Temp 98.6 98.6 Pulse 56 59 62 Resp 18 16 22 B/P (MAP) 135/78 (97) Pulse Ox 93 98 95 O2 Delivery Nasal Cannula Nasal Canula O2 Flow Rate 2.00 2.00 06/20/18 06/20/18 06/20/18 06/20/18 07:04 09:53 09:55 09:56 Temp 97.7 97.7 Pulse 70 68 70 67 Resp 20 12 20 12 B/P (MAP) 151/87 (108) Pulse Ox 96 97 96 97 O2 Delivery Room Air Room Air FiO2 21 06/20/18 06/20/18 06/20/18 10:30 10:31 10:36 B/P (MAP) 151/87 151/87 O2 Delivery Room Air Intake and Output 06/19/18 06/19/18 06/20/18 15:00 23:00 07:00 Intake Total 500 ml 5772 ml 500 ml Output Total 250 ml Balance 500 ml 5772 ml 250 ml Laboratory Tests Test 06/19/18 21:10 06/20/18 05:00 White Blood Count 15.1 10^3/uL 12.6 10^3/uL Red Blood Count 4.77 10^6/uL 4.33 10^6/uL Hemoglobin 14.7 g/dL 13.2 g/dL Hematocrit 43.5 % 39.5 % Mean Corpuscular Volume 91.2 fL 91.2 fL Mean Corpuscular Hemoglobin 30.8 pg 30.5 pg Mean Corpuscular Hemoglobin Concent 33.8 g/dL 33.4 g/dL Red Cell Distribution Width 13.2 % 13.2 % Platelet Count 195 10^3/uL 195 10^3/uL Mean Platelet Volume 9.4 fL 9.8 fL Current Medications Medications (Trade) Dose Ordered Sig/Sophy PRN Reason Start Time Stop Time Status Last Admin Acetaminophen (Tylenol) 1,000 mg Q6H 06/19/18 13:00 07/19/18 12:59 06/20/18 03:01 Albuterol Sulfate (Ventolin) 2.5 mg RTQ4 PRN WHEEZING 06/19/18 20:00 07/19/18 19:59 Albuterol/ Ipratropium (Duoneb 0.5 Mg-3 Mg/3 ml Soln) 3 ml RTQ6H 06/19/18 21:00 07/19/18 20:59 06/20/18 09:52 Celecoxib (Celebrex) 200 mg BID 06/19/18 21:00 07/19/18 20:59 06/20/18 10:32 Docusate Sodium (Colace) 100 mg DAILY 06/20/18 09:00 07/20/18 08:59 06/20/18 10:30 Famotidine (Pepcid) 20 mg DAILY 06/20/18 09:00 07/20/18 08:59 06/20/18 10:31 Fentanyl Citrate (Sublimaze) 12.5 mcg Q5MIN PRN PAIN 06/19/18 17:00 06/20/18 16:59 Gabapentin (Neurontin) 400 mg Q24HRS 06/20/18 13:00 06/20/18 13:01 Hydrochlorothiazide (Hydrochlorothiazide) 12.5 mg DAILY 06/20/18 09:00 07/20/18 08:59 06/20/18 10:30 Hydromorphone HCl (Dilaudid) 3 mg Q4H PRN PAIN 8-10 06/19/18 17:00 07/19/18 16:59 Labetalol HCl (Trandate) 5 mg Q5MIN PRN HYPERTENSION 06/19/18 17:00 07/19/18 16:59 06/19/18 17:14 Lisinopril (Zestril) 5 mg DAILY 06/20/18 09:00 07/20/18 08:59 06/20/18 10:31 Montelukast Sodium (Singulair) 10 mg DAILY 06/20/18 09:00 07/20/18 08:59 06/20/18 10:31 Ondansetron HCl (Zofran) 4 mg Q4H PRN NAUSEA / VOMITING 06/19/18 17:00 07/19/18 16:59 Pantoprazole Sodium (Protonix) 40 mg DAILY 06/19/18 21:00 07/19/18 20:59 06/20/18 10:30 Rivaroxaban (Xarelto) 10 mg DAILY 06/20/18 09:00 07/20/18 08:59 06/20/18 10:30 Tamsulosin HCl (Flomax) 0.4 mg DAILY 06/20/18 09:00 07/20/18 08:59 06/20/18 10:30 Throat Lozenges (Cepacol Sore Throat Lozenge) 1 each PRN PRN SORE THROAT 06/19/18 17:00 07/19/18 16:59 Tramadol HCl (Ultram) 50 mg Q4HR 06/19/18 20:00 07/19/18 19:59 06/20/18 10:32 Tramadol HCl (Ultram) 100 mg Q4HR PRN SEVERE PAIN 06/19/18 17:00 07/19/18 16:59 06/20/18 06:23 Sepsis Infection Criteria Pres: None LEVEL 1 SEPSIS INFECTION CRITE: Recent Invasive Procedure LEVEL 2-SIRS (LIST ALL THAT AP: None/Not assessed Cardiovascular Evidence: Not Assessed or None Hematologic Evidence: None/Not assessed Hepatic Evidence: None/Not assessed Metabolic Evidence: None/Not assessed Neurological Evidence: None/Not assessed Respiratory Evidence: None/Not assessed Renal Evidence: None/Not assessed O2 Sat by Pulse Oximetry: 98 Respiratory End-tidal CO2: 94 Oxygen Flow Rate: 1.00 Assessment/Plan Assessment/Plan Assessment/Plan 72 yo male s/p R TKA. HTN, hyponatremia secondary to excess water intake, BPH - cont NS with K; lasix iv x1; water restrict and follow Na levels - cont PT - follow BPs - vaponephrine for stridor Plan 72 yo male s/p R TKA. HTN, hyponatremia secondary to excess water intake, BPH - cont NS with K; lasix iv x1; water restrict and follow Na levels - cont PT - follow BPs - vaponephrine for stridor ANA CRISTINA ADAN MD Jun 24, 2018 09:01
[2018-06-24 09:17] LABS: CALCIUM 8.8 mg/dL (8.4-10.5); CARBON DIOXIDE 27.6 mmol/L (20.0-32)
[2018-06-24 10:20] VITALS: BP 166/85
[2018-06-24] MEDS: LACTATED RINGERS 1,000 ML IV SCH (12:00)
[2018-06-24 13:35] VITALS: BP 152/79
--- NOTE | 2018-06-24 13:48 | NUR ---
CALLED DIETARY TO ADDRESS PATIENTS REQUEST FOR GATORADE.
[2018-06-24] MEDS ORDERED: LASIX ONE (14:00)
[2018-06-24] MEDS ORDERED: LASIX IV STA (14:16)
--- NOTE | 2018-06-24 14:24 | PRM.PN ---
Subjective Subjective Date: Jun 24, 2018 Time: 14:00 Subjective Pt feeling better today; walked with PT; has some stridor Patient History: Alzheimer's disease 33 FATHER, , Age:87 Asthma V19 CHILD Hypertension 32 MOTHER, , Age:89 No known health problems G8 SISTER V19 CHILD V19 CHILD Parkinson's disease 33 FATHER, , Age:87 No Family History of: Cerebrovascular disorder Chronic obstructive pulmonary disease Congestive heart failure Diabetes insipidus Diabetes mellitus VTE VTE Risk Total Score: >5 VTE Risk Score VTE Risk: Score 0-1 = Low Risk (Aggressive mobilization; early ambulation; no VTE prophylaxis required) Score 2: Moderate Risk (Intermittent/Pneumatic Compression Device OR Lovenox/Heparin/Coumadin) Score 3-4: High Risk (Intermittent/Pneumatic Compression Device AND Lovenox/Heparin/Coumadin) Score > or =5: Highest Risk (Intermittent/Pneumatic Compression Device AND Lovenox/Heparin/Coumadin) Antico:Hep/LMWH/Coum/Xarelto: Yes Mechanical device ordered: Yes Review of Systems Constitutional: No: Fever, Chills, Sweats, Weakness, Malaise Eyes: No: Pain, Vision change, Conjunctivae inflammation, Eyelid inflammation ENT: Other (hoarseness); No: Ear pain, Ear discharge, Nose pain, Nose discharge , Nose congestion Respiratory: Cough, Dry; No: Shortness of breath, SOB with excertion Cardiovascular: No: Chest Pain, Palpitations, Edema Gastrointestinal: No: Nausea, Vomiting, Abdominal Pain, Diarrhea, Constipation Genitourinary: No Dysuria, No Hematuria Musculoskeletal: No: neck pain, back pain Skin: No: Rash, Lesions, Jaundice, Bruising Neurological: No: Numbness, Incoordination, Change in speech, Confusion, Seizures Allergies: Coded Allergies: No Known Allergies (Unverified , 06/14/18) Scheduled Hydrochlorothiazide (Hydrochlorothiazide), 1 CAP PO DAILY, (Reported) Lisinopril (Lisinopril), 1 TAB PO DAILY, (Reported) Metronidazole (Metrocream), 1 APPLIC TP BID, (Reported) Montelukast Sodium (Singulair), 1 TAB PO DAILY, (Reported) Scheduled PRN Ibuprofen (Advil), 600 MG PO BID PRN for PAIN, (Reported) Pantoprazole Sodium (Protonix), 1 TAB PO DAILY PRN for INDIGESTION, (Reported) Objective Vitals and I/O Vital Sign - Last 24 Hours 06/19/18 06/19/18 06/19/18 06/19/18 12:10 12:10 12:58 13:04 Temp 98.6 98.6 Pulse 93 73 73 Resp 16 18 16 B/P (MAP) 140/81 (100) 145/86 (105) 135/74 (94) Pulse Ox 95 97 98 O2 Delivery Room Air Room Air Nasal Canula Nasal Canula O2 Flow Rate 2 2 06/19/18 06/19/18 06/19/18 06/19/18 16:22 16:22 16:32 16:37 Temp 98.3 98.6 98.3 98.6 Pulse 83 83 88 Resp 18 18 18 B/P (MAP) 149/90 (109) 182/96 (124) Pulse Ox 100 100 100 O2 Delivery Non-Rebreather Non-Rebreather O2 Flow Rate 10 10 5 06/19/18 06/19/18 06/19/18 06/19/18 16:52 16:53 17:07 17:22 Temp 98.5 97.9 98.0 98.5 97.9 98.0 Pulse 91 87 89 78 Resp 18 18 18 18 B/P (MAP) 185/93 (123) 196/107 (136) 169/95 (119) Pulse Ox 99 100 99 98 O2 Delivery Non-Rebreather Nasal [place] Nasal Canula O2 Flow Rate 5 3 2 06/19/18 06/19/18 06/19/18 06/19/18 17:45 18:01 18:36 20:00 Temp 97.5 97.9 97.5 97.9 Pulse 77 63 Resp 17 18 22 B/P (MAP) 144/91 (108) 147/85 (105) Pulse Ox 99 98 99 O2 Delivery Nasal Canula Nasal Cannula Nasal Canula O2 Flow Rate 2 2.00 2.00 06/19/18 06/19/18 06/19/18 06/20/18 21:06 21:07 21:07 00:15 Temp 98.2 98.2 Pulse 98 92 61 Resp 18 18 22 B/P (MAP) 125/79 (94) Pulse Ox 97 98 95 O2 Delivery Nasal Cannula Nasal Canula O2 Flow Rate 2.00 2.00 06/20/18 06/20/18 06/20/18 06/20/18 02:33 03:19 03:19 05:35 Temp 98.6 98.6 Pulse 56 59 62 Resp 18 16 22 B/P (MAP) 135/78 (97) Pulse Ox 93 98 95 O2 Delivery Nasal Cannula Nasal Canula O2 Flow Rate 2.00 2.00 06/20/18 06/20/18 06/20/18 06/20/18 07:04 09:53 09:55 09:56 Temp 97.7 97.7 Pulse 70 68 70 67 Resp 20 12 20 12 B/P (MAP) 151/87 (108) Pulse Ox 96 97 96 97 O2 Delivery Room Air Room Air FiO2 21 06/20/18 06/20/18 06/20/18 10:30 10:31 10:36 B/P (MAP) 151/87 151/87 O2 Delivery Room Air Intake and Output 06/19/18 06/19/18 06/20/18 15:00 23:00 07:00 Intake Total 500 ml 5772 ml 500 ml Output Total 250 ml Balance 500 ml 5772 ml 250 ml General: Alert, Oriented X3, Cooperative, No acute distress, Other (More somnolent. Can't be specific as to where he feels bad.) HEENT: Atraumatic, PERRLA, Mucous membr. moist/pink Neck: Supple, No JVD, No thyromegaly, +2 carotid pulse wo bruit, No LAD Lungs: Clear to auscultation, Other (upper stridor noted) Heart: Regular rate, Normal S1, Normal S2, No murmurs Abdomen: Normal bowel sounds, Soft, No tenderness, No masses Extremities: No clubbing, No cyanosis, No edema Skin: No breakdown, No significant lesion Neuro: Normal gait, Normal speech, Strength at 5/5 X4 ext, Normal tone, Sensation intact Psych/Mental Status: Mental status NL, Mood NL All Results(Lab/Rad) Laboratory Tests Test 06/19/18 21:10 06/20/18 05:00 White Blood Count 15.1 10^3/uL 12.6 10^3/uL Red Blood Count 4.77 10^6/uL 4.33 10^6/uL Hemoglobin 14.7 g/dL 13.2 g/dL Hematocrit 43.5 % 39.5 % Mean Corpuscular Volume 91.2 fL 91.2 fL Mean Corpuscular Hemoglobin 30.8 pg 30.5 pg Mean Corpuscular Hemoglobin Concent 33.8 g/dL 33.4 g/dL Red Cell Distribution Width 13.2 % 13.2 % Platelet Count 195 10^3/uL 195 10^3/uL Mean Platelet Volume 9.4 fL 9.8 fL Current Medications Medications (Trade) Dose Ordered Sig/Sophy Route PRN Reason Start Time Stop Time Status Last Admin Dose Admin Sodium Chloride 250 ml @ ud STK-MED ONCE IV 06/19/18 05:32 06/19/18 05:35 DC Cefazolin Sodium (Ancef) 1 gm STK-MED ONCE .ROUTE 06/19/18 05:32 06/19/18 05:36 DC Neostigmine Methylsulfate (Neostigmine) 10 mg STK-MED ONCE .ROUTE 06/19/18 06:49 06/19/18 06:52 DC Ondansetron HCl (Zofran) 4 mg STK-MED ONCE .ROUTE 06/19/18 06:49 06/19/18 06:52 DC Ketorolac Tromethamine (Toradol) 30 mg STK-MED ONCE .ROUTE 06/19/18 06:49 06/19/18 06:52 DC Rocuronium [place] (Zemuron) 100 mg STK-MED ONCE IV 06/19/18 06:49 06/19/18 06:52 DC Hydromorphone HCl (Dilaudid) 2 mg STK-MED ONCE .ROUTE 06/19/18 06:49 06/19/18 06:52 DC Propofol (Diprivan) 200 mg STK-MED ONCE IV 06/19/18 06:49 06/19/18 06:52 DC Dexamethasone Sodium Phosphate (Decadron) 20 mg STK-MED ONCE .ROUTE 06/19/18 06:50 06/19/18 06:53 DC Bupivacaine HCl (Sensorcaine 0.5% Vial) 5 mg STK-MED ONCE .ROUTE 06/19/18 06:50 06/19/18 06:53 DC Ropivacaine (Naropin 0.2% 40 Mg/20 ml Vial) 2 mg STK-MED ONCE .ROUTE 06/19/18 06:50 06/19/18 06:53 DC Lidocaine HCl (Lidocaine 2% Vial) 500 mg STK-MED ONCE .ROUTE 06/19/18 06:50 06/19/18 06:54 DC Dexmedetomidine HCl (Precedex) 200 mcg STK-MED ONCE IV 06/19/18 06:50 06/19/18 06:54 DC Tranexamic Acid (Tranexamic Acid) 1,000 mg STK-MED ONCE IV 06/19/18 07:24 06/19/18 07:27 DC Sodium Chloride (Sodium Chloride) 1,000 ml STK-MED ONCE IR 06/19/18 09:59 06/19/18 10:02 DC Sodium Chloride 100 ml @ ud STK-MED ONCE IV 06/19/18 09:59 06/19/18 10:02 DC Sodium Chloride 250 ml @ ud STK-MED ONCE IV 06/19/18 09:59 06/19/18 10:02 DC Sodium Chloride (NS 3000ml Irr) 3,000 ml STK-MED ONCE IR 06/19/18 09:59 06/19/18 10:02 DC Acetaminophen (Tylenol) 500 mg STK-MED ONCE PO 06/19/18 12:37 06/19/18 12:41 DC Gabapentin (Neurontin) 400 mg STK-MED ONCE .ROUTE 06/19/18 12:37 06/19/18 12:41 DC Acetaminophen (Tylenol) 1,000 mg OT PO 06/19/18 13:00 06/19/18 20:53 DC 06/19/18 12:49 Acetaminophen (Tylenol) 1,000 mg Q6H PO 06/19/18 13:00 07/19/18 12:59 06/20/18 03:01 Celecoxib (Celebrex) 200 mg Q12HR PO 06/19/18 21:00 06/19/18 21:00 DC Gabapentin (Neurontin) 400 mg Q24HRS PO 06/20/18 13:00 06/20/18 13:01 Sodium Chloride (Sodium Chloride) 1,000 ml STK-MED ONCE IR 06/19/18 13:25 06/19/18 13:28 DC Sodium Chloride 250 ml @ ud STK-MED ONCE IV 06/19/18 13:25 06/19/18 13:29 DC Sodium Chloride (NS 3000ml Irr) 3,000 ml STK-MED ONCE IR 06/19/18 13:25 06/19/18 13:29 DC Sodium Chloride 100 ml @ ud STK-MED ONCE IV 06/19/18 13:26 06/19/18 13:29 DC Albuterol/ Ipratropium (Duoneb 0.5 Mg-3 Mg/3 ml Soln) 3 ml STK-MED ONCE IH 06/19/18 16:29 06/19/18 16:32 DC Hydromorphone HCl (Dilaudid) 0.2 mg Q5MIN PRN IV PAIN MILD 06/19/18 17:00 06/20/18 08:26 DC 06/19/18 16:48 Fentanyl Citrate (Sublimaze) 12.5 mcg Q5MIN PRN IV PAIN 06/19/18 17:00 06/20/18 16:59 Ondansetron HCl (Zofran) 4 mg PRN PRN IV nv 06/19/18 17:00 06/19/18 20:57 DC Promethazine HCl (Phenergan) 6.25 mg PRN PRN IV NAUSEA / VOMITING 06/19/18 17:00 06/19/18 20:56 DC Diphenhydramine HCl (Benadryl) 25 mg Q5MIN PRN IV NAUSEA / VOMITING 06/19/18 17:00 06/19/18 20:56 DC Albuterol Sulfate (Ventolin) 2.5 mg OT PRN IH WHEEZING 06/19/18 17:00 06/19/18 20:54 DC Labetalol HCl (Trandate) 5 mg Q5MIN PRN IV HYPERTENSION 06/19/18 17:00 07/19/18 16:59 06/19/18 17:14 Tramadol HCl (Ultram) 50 mg Q4HR PO 06/19/18 20:00 07/19/18 19:59 06/20/18 10:32 Tramadol HCl (Ultram) 100 mg Q4HR PRN PO SEVERE PAIN 06/19/18 17:00 07/19/18 16:59 06/20/18 06:23 Rivaroxaban (Xarelto) 10 mg DAILY PO 06/20/18 09:00 07/20/18 08:59 06/20/18 10:30 Docusate Sodium (Colace) 100 mg DAILY PO 06/20/18 09:00 07/20/18 08:59 06/20/18 10:30 Throat Lozenges (Cepacol Sore Throat Lozenge) 1 each PRN PRN MM SORE THROAT 06/19/18 17:00 07/19/18 16:59 Famotidine (Pepcid) 20 mg DAILY PO 06/20/18 09:00 07/20/18 08:59 06/20/18 10:31 Celecoxib (Celebrex) 200 mg BID PO 06/19/18 21:00 07/19/18 20:59 06/20/18 10:32 Hydromorphone HCl (Dilaudid) 3 mg Q4H PRN IV PAIN 8-10 06/19/18 17:00 07/19/18 16:59 Ondansetron HCl (Zofran) 4 mg Q4H PRN IV NAUSEA / VOMITING 06/19/18 17:00 07/19/18 16:59 Albuterol/ Ipratropium (Duoneb 0.5 Mg-3 Mg/3 ml Soln) 3 ml STAT STAT IH 06/19/18 16:49 06/19/18 20:51 DC 06/19/18 16:54 Labetalol HCl (Trandate) 20 mg STK-MED ONCE IV 06/19/18 17:08 06/19/18 17:11 DC Albuterol Sulfate (Ventolin) 2.5 mg RTQ4 PRN IH WHEEZING 06/19/18 20:00 07/19/18 19:59 Hydrochlorothiazide (Hydrochlorothiazide) 12.5 mg DAILY PO 06/20/18 09:00 07/20/18 08:59 06/20/18 10:30 Lisinopril (Zestril) 5 mg DAILY PO 06/20/18 09:00 07/20/18 08:59 06/20/18 10:31 Montelukast Sodium (Singulair) 10 mg DAILY PO 06/20/18 09:00 07/20/18 08:59 06/20/18 10:31 Pantoprazole Sodium (Protonix) 40 mg DAILY PO 06/19/18 21:00 07/19/18 20:59 06/20/18 10:30 Epinephrine (S-2) 1 each STAT STAT IH 06/19/18 20:56 2/11/19 20:58 DC 06/19/18 21:02 Albuterol/ Ipratropium (Duoneb 0.5 Mg-3 Mg/3 ml Soln) 3 ml RTQ6H IH 06/19/18 21:00 07/19/18 20:59 06/20/18 09:52 Epinephrine (S-2) 1 each STK-MED ONCE IH 06/19/18 20:55 06/19/18 20:59 DC Calcium Carbonate/ Glycine (Tums) 500 mg STK-MED ONCE .ROUTE 06/19/18 20:59 06/19/18 21:02 DC Tamsulosin HCl (Flomax) 0.4 mg DAILY PO 06/20/18 09:00 07/20/18 08:59 06/20/18 10:30 Course Sepsis Screening Results: Posi: NEGATIVE Sepsis Qualifier/Stage: NO DEFINITE RISK Duration or Total Time Spent w: 20 Vitals & review Data Vital Sign - Last 24 Hours 06/19/18 06/19/18 06/19/18 06/19/18 12:10 12:10 12:58 13:04 Temp 98.6 98.6 Pulse 93 73 73 Resp 16 18 16 B/P (MAP) 140/81 (100) 145/86 (105) 135/74 (94) Pulse Ox 95 97 98 O2 Delivery Room Air Room Air Nasal Canula Nasal Canula O2 Flow Rate 2 2 06/19/18 06/19/18 06/19/18 06/19/18 16:22 16:22 16:32 16:37 Temp 98.3 98.6 98.3 98.6 Pulse 83 83 88 Resp 18 18 18 B/P (MAP) 149/90 (109) 182/96 (124) Pulse Ox 100 100 100 O2 Delivery Non-Rebreather Non-Rebreather O2 Flow Rate 10 10 5 06/19/18 06/19/18 06/19/18 06/19/18 16:52 16:53 17:07 17:22 Temp 98.5 97.9 98.0 98.5 97.9 98.0 Pulse 91 87 89 78 Resp 18 18 18 18 B/P (MAP) 185/93 (123) 196/107 (136) 169/95 (119) Pulse Ox 99 100 99 98 O2 Delivery Non-Rebreather Nasal Canula Nasal Canula O2 Flow Rate 5 3 2 06/19/18 06/19/18 06/19/18 06/19/18 17:45 18:01 18:36 20:00 Temp 97.5 97.9 97.5 97.9 Pulse 77 63 Resp 17 18 22 B/P (MAP) 144/91 (108) 147/85 (105) Pulse Ox 99 98 99 O2 Delivery Nasal Canula Nasal Cannula Nasal Canula O2 Flow Rate 2 2.00 2.00 06/19/18 06/19/18 06/19/18 06/20/18 21:06 21:07 21:07 00:15 Temp 98.2 98.2 Pulse 98 92 61 Resp 22 B/P (MAP) 125/79 (94) Pulse Ox 97 98 95 O2 Delivery Nasal Cannula Nasal Canula O2 Flow Rate 2.00 2.00 06/20/18 06/20/18 06/20/18 06/20/18 02:33 03:19 03:19 05:35 Temp 98.6 98.6 Pulse 56 59 62 Resp 22 B/P (MAP) 135/78 (97) Pulse Ox 93 98 95 O2 Delivery Nasal Cannula Nasal Canula O2 Flow Rate 2.00 2.00 06/20/18 06/20/18 06/20/18 06/20/18 07:04 09:53 09:55 09:56 Temp 97.7 97.7 Pulse 70 68 70 67 Resp 20 12 20 12 B/P (MAP) 151/87 (108) Pulse Ox 96 97 96 97 O2 Delivery Room Air Room Air FiO2 21 06/20/18 06/20/18 06/20/18 10:30 10:31 10:36 B/P (MAP) 151/87 151/87 O2 Delivery Room Air Intake and Output 06/19/18 06/19/18 06/20/18 15:00 23:00 07:00 Intake Total 500 ml 5772 ml 500 ml Output Total 250 ml Balance 500 ml 5772 ml 250 ml Laboratory Tests Test 06/19/18 21:10 06/20/18 05:00 White Blood Count 15.1 10^3/uL 12.6 10^3/uL Red Blood Count 4.77 10^6/uL 4.33 10^6/uL Hemoglobin 14.7 g/dL 13.2 g/dL Hematocrit 43.5 % 39.5 % Mean Corpuscular Volume 91.2 fL 91.2 fL Mean Corpuscular Hemoglobin 30.8 pg 30.5 pg Mean Corpuscular Hemoglobin Concent 33.8 g/dL 33.4 g/dL Red Cell Distribution Width 13.2 % 13.2 % Platelet Count 195 10^3/uL 195 10^3/uL Mean Platelet Volume 9.4 fL 9.8 fL Current Medications Medications (Trade) Dose Ordered Sig/Sophy PRN Reason Start Time Stop Time Status Last Admin Acetaminophen (Tylenol) 1,000 mg Q6H 06/19/18 13:00 07/19/18 12:59 06/20/18 03:01 Albuterol Sulfate (Ventolin) 2.5 mg RTQ4 PRN WHEEZING 06/19/18 20:00 07/19/18 19:59 Albuterol/ Ipratropium (Duoneb 0.5 Mg-3 Mg/3 ml Soln) 3 ml RTQ6H 06/19/18 21:00 07/19/18 20:59 06/20/18 09:52 Celecoxib (Celebrex) 200 mg BID 06/19/18 21:00 07/19/18 20:59 06/20/18 10:32 Docusate Sodium (Colace) 100 mg DAILY 06/20/18 09:00 07/20/18 08:59 06/20/18 10:30 Famotidine (Pepcid) 20 mg DAILY 06/20/18 09:00 07/20/18 08:59 06/20/18 10:31 Fentanyl Citrate (Sublimaze) 12.5 mcg Q5MIN PRN PAIN 06/19/18 17:00 06/20/18 16:59 Gabapentin (Neurontin) 400 mg Q24HRS 06/20/18 13:00 06/20/18 13:01 Hydrochlorothiazide (Hydrochlorothiazide) 12.5 mg DAILY 06/20/18 09:00 07/20/18 08:59 06/20/18 10:30 Hydromorphone HCl (Dilaudid) 3 mg Q4H PRN PAIN 8-10 06/19/18 17:00 07/19/18 16:59 Labetalol HCl (Trandate) 5 mg Q5MIN PRN HYPERTENSION 06/19/18 17:00 07/19/18 16:59 06/19/18 17:14 Lisinopril (Zestril) 5 mg DAILY 06/20/18 09:00 07/20/18 08:59 06/20/18 10:31 Montelukast Sodium (Singulair) 10 mg DAILY 06/20/18 09:00 07/20/18 08:59 06/20/18 10:31 Ondansetron HCl (Zofran) 4 mg Q4H PRN NAUSEA / VOMITING 06/19/18 17:00 07/19/18 16:59 Pantoprazole Sodium (Protonix) 40 mg DAILY 06/19/18 21:00 07/19/18 20:59 06/20/18 10:30 Rivaroxaban (Xarelto) 10 mg DAILY 06/20/18 09:00 07/20/18 08:59 06/20/18 10:30 Tamsulosin HCl (Flomax) 0.4 mg DAILY 06/20/18 09:00 07/20/18 08:59 06/20/18 10:30 Throat Lozenges (Cepacol Sore Throat Lozenge) 1 each PRN PRN SORE THROAT 06/19/18 17:00 07/19/18 16:59 Tramadol HCl (Ultram) 50 mg Q4HR 06/19/18 20:00 07/19/18 19:59 06/20/18 10:32 Tramadol HCl (Ultram) 100 mg Q4HR PRN SEVERE PAIN 06/19/18 17:00 07/19/18 16:59 06/20/18 06:23 Sepsis Infection Criteria Pres: None LEVEL 1 SEPSIS INFECTION CRITE: Recent Invasive Procedure LEVEL 2-SIRS (LIST ALL THAT AP: None/Not assessed Cardiovascular Evidence: Not Assessed or None Hematologic Evidence: None/Not assessed Hepatic Evidence: None/Not assessed Metabolic Evidence: None/Not assessed Neurological Evidence: None/Not assessed Respiratory Evidence: None/Not assessed Renal Evidence: None/Not assessed O2 Sat by Pulse Oximetry: 98 Respiratory End-tidal CO2: 97 Oxygen Flow Rate: 1.00 Assessment/Plan Assessment/Plan Assessment/Plan 72 yo male s/p R TKA. HTN, hyponatremia secondary to excess water intake, BPH - cont NS with K; lasix iv x1; water restrict and follow Na levels - cont PT - follow BPs - vaponephrine for stridor Plan 72 yo male s/p R TKA. HTN, hyponatremia secondary to excess water intake, BPH - cont NS with K; lasix iv x1; water restrict and follow Na levels - cont PT - follow BPs - vaponephrine for stridor ARLINE MONTERO MD Jun 24, 2018 14:23
--- NOTE | 2018-06-24 15:35 | NUR ---
STATUS FAMILY AT BEDSIDE. PATIENT IS RESTING IN RECLINER WITH BLE ELEVATED, ANKLE SUPPORTED WITH ROLLED DEVICE. PATIENT RATES PAIN AT 4/10. NS WITH 20MEQ OF POTASSIUM RUNNING @100CC/HR. RESPIRATIONS EVEN, NON-LABORED. DENIES UNMET NEEDS AT THIS TIME. CALL LIGHT IN REACH, BED IS LOW AND LOCKED. WILL CONTINUE TO MONITOR.
[2018-06-24 20:04] VITALS: BP 137/77
[2018-06-25 00:38] VITALS: BP 148/87
[2018-06-25] MEDS: TYLENOL PO SCH ×2 (01:00→07:00)
[2018-06-25] MEDS: DUONEB 0.5 MG-3 MG/3 ML SOLN IH SCH ×2 (02:53→09:03)
[2018-06-25] MEDS: ULTRAM PO SCH ×3 (04:00→08:24)
[2018-06-25] MEDS: NS 1000ML/KCL 20MEQ 1,000 ML IV SCH (04:32)
[2018-06-25 05:15] VITALS: BP 144/84
--- NOTE | 2018-06-25 07:00 | NUR ---
REPORT RECEIVED REPORT, ASSUMED CARE FOR PATIENT AT THIS TIME.
[2018-06-25 07:44] LABS: CALCIUM 8.4 mg/dL (8.4-10.5); CARBON DIOXIDE 27.5 mmol/L (20.0-32)
[2018-06-25] MEDS: COLACE PO SCH (08:22)
[2018-06-25] MEDS: SODIUM CHLORIDE PO SCH (08:22)
[2018-06-25] MEDS: MUCINEX PO SCH (08:23)
[2018-06-25] MEDS: ZESTRIL PO SCH (08:23)
[2018-06-25] MEDS: HYDROCHLOROTHIAZIDE PO SCH (08:23)
[2018-06-25] MEDS: CELEBREX PO SCH (08:23)
[2018-06-25] MEDS: PROTONIX PO SCH (08:24)
[2018-06-25] MEDS: SINGULAIR PO SCH (08:24)
[2018-06-25] MEDS: XARELTO PO SCH (08:24)
[2018-06-25] MEDS: PEPCID PO SCH (08:24)
[2018-06-25] MEDS: FLOMAX PO SCH (08:24)
--- NOTE | 2018-06-25 08:55 | NUR ---
STATUS PATIENT RESTING PEACEFULLY IN RECLINER AT THIS TIME. BRUISING NOTED BEHIND RIGHT KNEE. PREVENA WOUND VAC IN PLACE OVER SURGICAL SITE, ON AND FUNCTIONING. RESPIRATIONS EVEN, NON-LABORED. STRIDOR HEARD ON AUSCULTATION OF LUNGS. NS WITH 20MEQ OF POTASSIUM RUNNING IN PATENT IV SITE. PATIENT DENIES ANY PAIN AT THIS TIME. PATIENT WAS ASSISTED WITH SHOWER THIS MORNING, AND LINENS ON BED WERE CHANGED. DENIES ANY UNMET NEEDS. CALL LIGHT IN REACH, BED IS LOW AND LOCKED. WILL CONTINUE TO MONITOR.
[2018-06-25] MEDS: NICOTINE 14MG PATCH TD SCH (09:00)
[2018-06-25] MEDS ORDERED: TRAM50TA PO (10:27)
[2018-06-25] MEDS ORDERED: RIVA10TA PO (10:27)
--- NOTE | 2018-06-25 11:41 | PRM.PN ---
Subjective Subjective Date: Jun 25, 2018 Time: 11:40 Subjective Pt feeling better today; walked with PT; has some stridor 06/25 Alert today Pain ok VSS Na 125 Will dc Appt tuesday Patient History: Alzheimer's disease 33 FATHER, , Age:87 Asthma V19 CHILD Hypertension 32 MOTHER, , Age:89 No known health problems G8 SISTER V19 CHILD V19 CHILD Parkinson's disease 33 FATHER, , Age:87 No Family History of: Cerebrovascular disorder Chronic obstructive pulmonary disease Congestive heart failure Diabetes insipidus Diabetes mellitus VTE VTE Risk Total Score: >5 VTE Risk Score VTE Risk: Score 0-1 = Low Risk (Aggressive mobilization; early ambulation; no VTE prophylaxis required) Score 2: Moderate Risk (Intermittent/Pneumatic Compression Device OR Lovenox/Heparin/Coumadin) Score 3-4: High Risk (Intermittent/Pneumatic Compression Device AND Lovenox/Heparin/Coumadin) Score > or =5: Highest Risk (Intermittent/Pneumatic Compression Device AND Lovenox/Heparin/Coumadin) Antico:Hep/LMWH/Coum/Xarelto: Yes Mechanical device ordered: Yes Review of Systems Constitutional: No: Fever, Chills, Sweats, Weakness, Malaise Eyes: No: Pain, Vision change, Conjunctivae inflammation, Eyelid inflammation ENT: Other (hoarseness); No: Ear pain, Ear discharge, Nose pain, Nose discharge , Nose congestion Respiratory: Cough, Dry; No: Shortness of breath, SOB with excertion Cardiovascular: No: Chest Pain, Palpitations, Edema Gastrointestinal: No: Nausea, Vomiting, Abdominal Pain, Diarrhea, Constipation Genitourinary: No Dysuria, No Hematuria Musculoskeletal: No: neck pain, back pain Skin: No: Rash, Lesions, Jaundice, Bruising Neurological: No: Numbness, Incoordination, Change in speech, Confusion, Seizures Allergies: Coded Allergies: No Known Allergies (Unverified , 06/14/18) Scheduled Lisinopril (Lisinopril), 1 TAB PO DAILY, (Reported) Metronidazole (Metrocream), 1 APPLIC TP BID, (Reported) Montelukast Sodium (Singulair), 1 TAB PO DAILY, (Reported) Rivaroxaban (Xarelto), 10 MG PO DAILY Tramadol Hcl (Tramadol Hcl), 50 MG PO Q4HR Scheduled PRN Ibuprofen (Advil), 600 MG PO BID PRN for PAIN, (Reported) Pantoprazole Sodium (Protonix), 1 TAB PO DAILY PRN for INDIGESTION, (Reported) Discontinued Medications Hydrochlorothiazide (Hydrochlorothiazide), 1 CAP PO DAILY, (Reported) Discontinued Reason: HOLD Objective Vitals and I/O Vital Sign - Last 24 Hours 06/19/18 06/19/18 06/19/18 06/19/18 12:10 12:10 12:58 13:04 Temp 98.6 98.6 Pulse 93 73 73 Resp 16 18 16 B/P (MAP) 140/81 (100) 145/86 (105) 135/74 (94) Pulse Ox 95 97 98 O2 Delivery Room Air Room Air Nasal Canula Nasal Canula O2 Flow Rate 2 2 06/19/18 06/19/18 06/19/18 06/19/18 16:22 16:22 16:32 16:37 Temp 98.3 98.6 98.3 98.6 Pulse 83 83 88 Resp 18 18 18 B/P (MAP) 149/90 (109) 182/96 (124) Pulse Ox 100 100 100 O2 Delivery Non-Rebreather Non-Rebreather O2 Flow Rate 10 10 5 06/19/18 06/19/18 06/19/18 06/19/18 16:52 16:53 17:07 17:22 Temp 98.5 97.9 98.0 98.5 97.9 98.0 Pulse 91 87 89 78 Resp 18 18 18 18 B/P (MAP) 185/93 (123) 196/107 (136) 169/95 (119) Pulse Ox 99 100 99 98 O2 Delivery Non-Rebreather Nasal Canula Nasal Canula O2 Flow Rate 5 3 2 06/19/18 06/19/18 06/19/18 06/19/18 17:45 18:01 18:36 20:00 Temp 97.5 97.9 97.5 97.9 Pulse 77 63 Resp 17 18 22 B/P (MAP) 144/91 (108) 147/85 (105) Pulse Ox 99 98 99 O2 Delivery Nasal Canula Nasal Cannula Nasal Canula O2 Flow Rate 2 2.00 2.00 06/19/18 06/19/18 06/19/18 06/20/18 21:06 21:07 21:07 00:15 Temp 98.2 98.2 Pulse 98 92 61 Resp 18 18 22 B/P (MAP) 125/79 (94) Pulse Ox 97 98 95 O2 Delivery Nasal Cannula Nasal Canula O2 Flow Rate 2.00 2.00 06/20/18 06/20/18 06/20/18 06/20/18 02:33 03:19 03:19 05:35 Temp 98.6 98.6 Pulse 56 59 62 Resp 18 16 22 B/P (MAP) 135/78 (97) Pulse Ox 93 98 95 O2 Delivery Nasal Cannula Nasal Canula O2 Flow Rate 2.00 2.00 06/20/18 06/20/18 06/20/18 06/20/18 07:04 09:53 09:55 09:56 Temp 97.7 97.7 Pulse 70 68 70 67 Resp 20 12 20 12 B/P (MAP) 151/87 (108) Pulse Ox 96 97 96 97 O2 Delivery Room Air Room Air FiO2 21 06/20/18 06/20/18 06/20/18 10:30 10:31 10:36 B/P (MAP) 151/87 151/87 O2 Delivery Room Air Intake and Output 06/19/18 06/19/18 06/20/18 15:00 23:00 07:00 Intake Total 500 ml 5772 ml 500 ml Output Total 250 ml Balance 500 ml 5772 ml 250 ml General: Alert, Oriented X3, Cooperative, No acute distress, Other (More somnolent. Can't be specific as to where he feels bad.) HEENT: Atraumatic, PERRLA, Mucous membr. moist/pink Neck: Supple, No JVD, No thyromegaly, +2 carotid pulse wo bruit, No LAD Lungs: Clear to auscultation, Other (upper stridor noted) Heart: Regular rate, Normal S1, Normal S2, No murmurs Abdomen: Normal bowel sounds, Soft, No tenderness, No masses Extremities: No clubbing, No cyanosis, No edema Skin: No breakdown, No significant lesion Neuro: Normal gait, Normal speech, Strength at 5/5 X4 ext, Normal tone, Sensation intact Psych/Mental Status: Mental status NL, Mood NL All Results(Lab/Rad) Laboratory Tests Test 06/19/18 21:10 06/20/18 05:00 White Blood Count 15.1 10^3/uL 12.6 10^3/uL Red Blood Count 4.77 10^6/uL 4.33 10^6/uL Hemoglobin 14.7 g/dL 13.2 g/dL Hematocrit 43.5 % 39.5 % Mean Corpuscular Volume 91.2 fL 91.2 fL Mean Corpuscular Hemoglobin 30.8 pg 30.5 pg Mean Corpuscular Hemoglobin Concent 33.8 g/dL 33.4 g/dL Red Cell Distribution Width 13.2 % 13.2 % Platelet Count 195 10^3/uL 195 10^3/uL Mean Platelet Volume 9.4 fL 9.8 fL Current Medications Medications (Trade) Dose Ordered Sig/Sophy Route PRN Reason Start Time Stop Time Status Last Admin Dose Admin Sodium Chloride 250 ml @ ud STK-MED ONCE IV 06/19/18 05:32 06/19/18 05:35 DC Cefazolin Sodium (Ancef) 1 gm STK-MED ONCE .ROUTE 06/19/18 05:32 06/19/18 05:36 DC Neostigmine Methylsulfate (Neostigmine) 10 mg STK-MED ONCE .ROUTE 06/19/18 06:49 06/19/18 06:52 DC Ondansetron HCl (Zofran) 4 mg STK-MED ONCE .ROUTE 06/19/18 06:49 06/19/18 06:52 DC Ketorolac Tromethamine (Toradol) 30 mg STK-MED ONCE .ROUTE 06/19/18 06:49 06/19/18 06:52 DC Rocuronium Lowell (Zemuron) 100 mg STK-MED ONCE IV 06/19/18 06:49 06/19/18 06:52 DC Hydromorphone HCl (Dilaudid) 2 mg STK-MED ONCE .ROUTE 06/19/18 06:49 06/19/18 06:52 DC Propofol (Diprivan) 200 mg STK-MED ONCE IV 06/19/18 06:49 06/19/18 06:52 DC Dexamethasone Sodium Phosphate (Decadron) 20 mg STK-MED ONCE .ROUTE 06/19/18 06:50 06/19/18 06:53 DC Bupivacaine HCl (Sensorcaine 0.5% Vial) 5 mg STK-MED ONCE .ROUTE 06/19/18 06:50 06/19/18 06:53 DC Ropivacaine (Naropin 0.2% 40 Mg/20 ml Vial) 2 mg STK-MED ONCE .ROUTE 06/19/18 06:50 06/19/18 06:53 DC Lidocaine HCl (Lidocaine 2% Vial) 500 mg STK-MED ONCE .ROUTE 06/19/18 06:50 06/19/18 06:54 DC Dexmedetomidine HCl (Precedex) 200 mcg STK-MED ONCE IV 06/19/18 06:50 06/19/18 06:54 DC Tranexamic Acid (Tranexamic Acid) 1,000 mg STK-MED ONCE IV 06/19/18 07:24 06/19/18 07:27 DC Sodium Chloride (Sodium Chloride) 1,000 ml STK-MED ONCE IR 06/19/18 09:59 06/19/18 10:02 DC Sodium Chloride 100 ml @ ud STK-MED ONCE IV 06/19/18 09:59 06/19/18 10:02 DC Sodium Chloride 250 ml @ ud STK-MED ONCE IV 06/19/18 09:59 06/19/18 10:02 DC Sodium Chloride (NS 3000ml Irr) 3,000 ml STK-MED ONCE IR 06/19/18 09:59 06/19/18 10:02 DC Acetaminophen (Tylenol) 500 mg STK-MED ONCE PO 06/19/18 12:37 06/19/18 12:41 DC Gabapentin (Neurontin) 400 mg STK-MED ONCE .ROUTE 06/19/18 12:37 06/19/18 12:41 DC Acetaminophen (Tylenol) 1,000 mg OT PO 06/19/18 13:00 06/19/18 20:53 DC 06/19/18 12:49 Acetaminophen (Tylenol) 1,000 mg Q6H PO 06/19/18 13:00 07/19/18 12:59 06/20/18 03:01 Celecoxib (Celebrex) 200 mg Q12HR PO 06/19/18 21:00 06/19/18 21:00 DC Gabapentin (Neurontin) 400 mg Q24HRS PO 06/20/18 13:00 06/20/18 13:01 Sodium Chloride (Sodium Chloride) 1,000 ml STK-MED ONCE IR 06/19/18 13:25 06/19/18 13:28 DC Sodium Chloride 250 ml @ ud STK-MED ONCE IV 06/19/18 13:25 06/19/18 13:29 DC Sodium Chloride (NS 3000ml Irr) 3,000 ml STK-MED ONCE IR 06/19/18 13:25 06/19/18 13:29 DC Sodium Chloride 100 ml @ ud STK-MED ONCE IV 06/19/18 13:26 06/19/18 13:29 DC Albuterol/ Ipratropium (Duoneb 0.5 Mg-3 Mg/3 ml Soln) 3 ml STK-MED ONCE IH 06/19/18 16:29 06/19/18 16:32 DC Hydromorphone HCl (Dilaudid) 0.2 mg Q5MIN PRN IV PAIN MILD 06/19/18 17:00 06/20/18 08:26 DC 06/19/18 16:48 Fentanyl Citrate (Sublimaze) 12.5 mcg Q5MIN PRN IV PAIN 06/19/18 17:00 06/20/18 16:59 Ondansetron HCl (Zofran) 4 mg PRN PRN IV nv 06/19/18 17:00 06/19/18 20:57 DC Promethazine HCl (Phenergan) 6.25 mg PRN PRN IV NAUSEA / VOMITING 06/19/18 17:00 06/19/18 20:56 DC Diphenhydramine HCl (Benadryl) 25 mg Q5MIN PRN IV NAUSEA / VOMITING 06/19/18 17:00 06/19/18 20:56 DC Albuterol Sulfate (Ventolin) 2.5 mg OT PRN IH WHEEZING 06/19/18 17:00 06/19/18 20:54 DC Labetalol HCl (Trandate) 5 mg Q5MIN PRN IV HYPERTENSION 06/19/18 17:00 07/19/18 16:59 06/19/18 17:14 Tramadol HCl (Ultram) 50 mg Q4HR PO 06/19/18 20:00 07/19/18 19:59 06/20/18 10:32 Tramadol HCl (Ultram) 100 mg Q4HR PRN PO SEVERE PAIN 06/19/18 17:00 07/19/18 16:59 06/20/18 06:23 Rivaroxaban (Xarelto) 10 mg DAILY PO 06/20/18 09:00 07/20/18 08:59 06/20/18 10:30 Docusate Sodium (Colace) 100 mg DAILY PO 06/20/18 09:00 07/20/18 08:59 06/20/18 10:30 Throat Lozenges (Cepacol Sore Throat Lozenge) 1 each PRN PRN MM SORE THROAT 06/19/18 17:00 07/19/18 16:59 Famotidine (Pepcid) 20 mg DAILY PO 06/20/18 09:00 07/20/18 08:59 06/20/18 10:31 Celecoxib (Celebrex) 200 mg BID PO 06/19/18 21:00 07/19/18 20:59 06/20/18 10:32 Hydromorphone HCl (Dilaudid) 3 mg Q4H PRN IV PAIN 8-10 06/19/18 17:00 07/19/18 16:59 Ondansetron HCl (Zofran) 4 mg Q4H PRN IV NAUSEA / VOMITING 06/19/18 17:00 07/19/18 16:59 Albuterol/ Ipratropium (Duoneb 0.5 Mg-3 Mg/3 ml Soln) 3 ml STAT STAT IH 06/19/18 16:49 06/19/18 20:51 DC 06/19/18 16:54 Labetalol HCl (Trandate) 20 mg STK-MED ONCE IV 06/19/18 17:08 06/19/18 17:11 DC Albuterol Sulfate (Ventolin) 2.5 mg RTQ4 PRN IH WHEEZING 06/19/18 20:00 07/19/18 19:59 Hydrochlorothiazide (Hydrochlorothiazide) 12.5 mg DAILY PO 06/20/18 09:00 07/20/18 08:59 06/20/18 10:30 Lisinopril (Zestril) 5 mg DAILY PO 06/20/18 09:00 07/20/18 08:59 06/20/18 10:31 Montelukast Sodium (Singulair) 10 mg DAILY PO 06/20/18 09:00 07/20/18 08:59 06/20/18 10:31 Pantoprazole Sodium (Protonix) 40 mg DAILY PO 06/19/18 21:00 07/19/18 20:59 06/20/18 10:30 Epinephrine (S-2) 1 each STAT STAT IH 06/19/18 20:56 06/19/18 20:58 DC 06/19/18 21:02 Albuterol/ Ipratropium (Duoneb 0.5 Mg-3 Mg/3 ml Soln) 3 ml RTQ6H IH 06/19/18 21:00 07/19/18 20:59 06/20/18 09:52 Epinephrine (S-2) 1 each STK-MED ONCE IH 06/19/18 20:55 06/19/18 20:59 DC Calcium Carbonate/ Glycine (Tums) 500 mg STK-MED ONCE .ROUTE 06/19/18 20:59 06/19/18 21:02 DC Tamsulosin HCl (Flomax) 0.4 mg DAILY PO 06/20/18 09:00 07/20/18 08:59 06/20/18 10:30 Course Sepsis Screening Results: Posi: NEGATIVE Sepsis Qualifier/Stage: NO DEFINITE RISK Duration or Total Time Spent w: 20 Vitals & review Data Vital Sign - Last 24 Hours 06/19/18 06/19/18 06/19/18 06/19/18 12:10 12:10 12:58 13:04 Temp 98.6 98.6 Pulse 93 73 73 Resp 16 18 16 B/P (MAP) 140/81 (100) 145/86 (105) 135/74 (94) Pulse Ox 95 97 98 O2 Delivery Room Air Room Air Nasal Canula Nasal Canula O2 Flow Rate 2 2 06/19/18 06/19/18 06/19/18 06/19/18 16:22 16:22 16:32 16:37 Temp 98.3 98.6 98.3 98.6 Pulse 83 83 88 Resp 18 18 18 B/P (MAP) 149/90 (109) 182/96 (124) Pulse Ox 100 100 100 O2 Delivery Non-Rebreather Non-Rebreather O2 Flow Rate 10 10 5 06/19/18 06/19/18 06/19/18 06/19/18 16:52 16:53 17:07 17:22 Temp 98.5 97.9 98.0 98.5 97.9 98.0 Pulse 91 87 89 78 Resp 18 18 18 18 B/P (MAP) 185/93 (123) 196/107 (136) 169/95 (119) Pulse Ox 99 100 99 98 O2 Delivery Non-Rebreather Nasal Canula Nasal Canula O2 Flow Rate 5 3 2 06/19/18 06/19/18 06/19/18 06/19/18 17:45 18:01 18:36 20:00 Temp 97.5 97.9 97.5 97.9 Pulse 77 63 Resp 17 18 22 B/P (MAP) 144/91 (108) 147/85 (105) Pulse Ox 99 98 99 O2 Delivery Nasal Canula Nasal Cannula Nasal Canula O2 Flow Rate 2 2.00 2.00 06/19/18 06/19/18 06/19/18 06/20/18 21:06 21:07 21:07 00:15 Temp 98.2 98.2 Pulse 98 92 61 Resp 18 18 22 B/P (MAP) 125/79 (94) Pulse Ox 97 98 95 O2 Delivery Nasal Cannula Nasal Canula O2 Flow Rate 2.00 2.00 06/20/18 06/20/18 06/20/18 06/20/18 02:33 03:19 03:19 05:35 Temp 98.6 98.6 Pulse 56 59 62 Resp 18 16 22 B/P (MAP) 135/78 (97) Pulse Ox 93 98 95 O2 Delivery Nasal Cannula Nasal Canula O2 Flow Rate 2.00 2.00 06/20/18 06/20/18 06/20/18 06/20/18 07:04 09:53 09:55 09:56 Temp 97.7 97.7 Pulse 70 68 70 67 Resp 20 12 20 12 B/P (MAP) 151/87 (108) Pulse Ox 96 97 96 97 O2 Delivery Room Air Room Air FiO2 21 06/20/18 06/20/18 06/20/18 10:30 10:31 10:36 B/P (MAP) 151/87 151/87 O2 Delivery Room Air Intake and Output 06/19/18 06/19/18 06/20/18 15:00 23:00 07:00 Intake Total 500 ml 5772 ml 500 ml Output Total 250 ml Balance 500 ml 5772 ml 250 ml Laboratory Tests Test 06/19/18 21:10 06/20/18 05:00 White Blood Count 15.1 10^3/uL 12.6 10^3/uL Red Blood Count 4.77 10^6/uL 4.33 10^6/uL Hemoglobin 14.7 g/dL 13.2 g/dL Hematocrit 43.5 % 39.5 % Mean Corpuscular Volume 91.2 fL 91.2 fL Mean Corpuscular Hemoglobin 30.8 pg 30.5 pg Mean Corpuscular Hemoglobin Concent 33.8 g/dL 33.4 g/dL Red Cell Distribution Width 13.2 % 13.2 % Platelet Count 195 10^3/uL 195 10^3/uL Mean Platelet Volume 9.4 fL 9.8 fL Current Medications Medications (Trade) Dose Ordered Sig/Sophy PRN Reason Start Time Stop Time Status Last Admin Acetaminophen (Tylenol) 1,000 mg Q6H 06/19/18 13:00 07/19/18 12:59 06/20/18 03:01 Albuterol Sulfate (Ventolin) 2.5 mg RTQ4 PRN WHEEZING 06/19/18 20:00 07/19/18 19:59 Albuterol/ Ipratropium (Duoneb 0.5 Mg-3 Mg/3 ml Soln) 3 ml RTQ6H 06/19/18 21:00 07/19/18 20:59 06/20/18 09:52 Celecoxib (Celebrex) 200 mg BID 06/19/18 21:00 07/19/18 20:59 06/20/18 10:32 Docusate Sodium (Colace) 100 mg DAILY 06/20/18 09:00 07/20/18 08:59 06/20/18 10:30 Famotidine (Pepcid) 20 mg DAILY 06/20/18 09:00 07/20/18 08:59 06/20/18 10:31 Fentanyl Citrate (Sublimaze) 12.5 mcg Q5MIN PRN PAIN 06/19/18 17:00 06/20/18 16:59 Gabapentin (Neurontin) 400 mg Q24HRS 06/20/18 13:00 06/20/18 13:01 Hydrochlorothiazide (Hydrochlorothiazide) 12.5 mg DAILY 06/20/18 09:00 07/20/18 08:59 06/20/18 10:30 Hydromorphone HCl (Dilaudid) 3 mg Q4H PRN PAIN 8-10 06/19/18 17:00 07/19/18 16:59 Labetalol HCl (Trandate) 5 mg Q5MIN PRN HYPERTENSION 06/19/18 17:00 07/19/18 16:59 06/19/18 17:14 Lisinopril (Zestril) 5 mg DAILY 06/20/18 09:00 07/20/18 08:59 06/20/18 10:31 Montelukast Sodium (Singulair) 10 mg DAILY 06/20/18 09:00 07/20/18 08:59 06/20/18 10:31 Ondansetron HCl (Zofran) 4 mg Q4H PRN NAUSEA / VOMITING 06/19/18 17:00 07/19/18 16:59 Pantoprazole Sodium (Protonix) 40 mg DAILY 06/19/18 21:00 07/19/18 20:59 06/20/18 10:30 Rivaroxaban (Xarelto) 10 mg DAILY 06/20/18 09:00 07/20/18 08:59 06/20/18 10:30 Tamsulosin HCl (Flomax) 0.4 mg DAILY 06/20/18 09:00 07/20/18 08:59 06/20/18 10:30 Throat Lozenges (Cepacol Sore Throat Lozenge) 1 each PRN PRN SORE THROAT 06/19/18 17:00 07/19/18 16:59 Tramadol HCl (Ultram) 50 mg Q4HR 06/19/18 20:00 07/19/18 19:59 06/20/18 10:32 Tramadol HCl (Ultram) 100 mg Q4HR PRN SEVERE PAIN 06/19/18 17:00 07/19/18 16:59 06/20/18 06:23 Sepsis Infection Criteria Pres: None LEVEL 1 SEPSIS INFECTION CRITE: Recent Invasive Procedure LEVEL 2-SIRS (LIST ALL THAT AP: None/Not assessed Cardiovascular Evidence: Not Assessed or None Hematologic Evidence: None/Not assessed Hepatic Evidence: None/Not assessed Metabolic Evidence: None/Not assessed Neurological Evidence: None/Not assessed Respiratory Evidence: None/Not assessed Renal Evidence: None/Not assessed O2 Sat by Pulse Oximetry: 94 Respiratory End-tidal CO2: 94 Oxygen Flow Rate: 1.00 Assessment/Plan Assessment/Plan Assessment/Plan 72 yo male s/p R TKA. HTN, hyponatremia secondary to excess water intake, BPH - cont NS with K; lasix iv x1; water restrict and follow Na levels - cont PT - follow BPs - vaponephrine for stridor Plan 72 yo male s/p R TKA. HTN, hyponatremia secondary to excess water intake, BPH - cont NS with K; lasix iv x1; water restrict and follow Na levels - cont PT - follow BPs - vaponephrine for stridor ANA CRISTINA ADAN MD Jun 25, 2018 11:41
--- NOTE | 2018-06-25 12:42 | NUR ---
DISCHARGE PATIENT BEING DISCHARGED HOME AT THIS TIME IN STABLE CONDITION. PATIENT LEFT WITH PREVENA WOUND VAC APPLIED TO R.KNEE, ON AND FUNCTIONING. DISCHARGE PICTURES WERE NOT TAKEN ON DISCHARGE DUE TO ORDERS FROM STATING TO LEAVE DRESSING INTACT UNTIL FOLLOW-UP APPOINTMENT. EDUCATED PATIENT ON PHYSICAL THERAPY APPOINTMENT, AND FOLLOW-UPS WITH BOTH AND ANTIONETTE. PATIENT VOICED UNDERSTANDING. PHYSICAL PAPER PRESCRIPTION GIVEN TO PATIENT. DENIES ADDITIONAL NEEDS AT THIS TIME. PATIENT WAS ASSISTED DOWNSTAIRS TO PRIVATE VEHICLE VIA WHEELCHAIR. RELINQUISHED CARE FOR PATIENT AT THIS TIME.
[2018-06-25 12:47] VITALS: BP 144/84
--- NOTE | 2018-06-25 13:42 | DSH ---
DATE OF DISCHARGE: 06/25/2018 ADMITTING DIAGNOSIS: Include osteoarthritis of the right knee. OTHER DIAGNOSES: Include hypertension, benign prostatic hyperplasia, spinal stenosis, history of chronic obstructive pulmonary disease. DISCHARGE DIAGNOSES: Include hypertension, benign prostatic hyperplasia, spinal stenosis, history of chronic obstructive pulmonary disease. Postoperative anemia secondary to surgical blood loss expected. Other diagnosis include hyponatremia. OPERATIVE PROCEDURE DATE: 06/19/2018. PROCEDURE PERFORMED: Right total knee arthroplasty. CONSULTATIONS: Dr. Crespo and Dr. Pickering. SUMMARY OF ADMISSION: The patient is a 72-year-old male who had severe pain about the right knee that limited daily activities secondary to osteoarthritis. He failed conservative treatment. Please refer to the admitting H and P for the details. The patient basically had failed conservative treatment and was taken to the operating room on 06/19/2018 for right total knee arthroplasty. The patient's procedure was performed without incident. Postoperatively, the patient had some difficulty with some laryngeal irritation secondary to the intubation and a history of previous tracheostomy. He was treated with breathing treatments. The patient had daily physical therapy and occupational therapy for gait training, range of motion and ADLs. The patient's pain was satisfactorily controlled. His hemoglobin dropped to a low of 11.7, but his vital signs have remained stable and his urinary output remained stable. On 06/22/2018, the patient was noted to be somewhat confused. His sodium was 116. Dr. Crespo basically treated him with IV normal saline as well as retention of free water. On discharge, the patient's sodium is 124. His vital signs are stable. His neurovascular exam is normal. The patient is independent with his transfers and ambulation and his pain is well controlled. He is on a regular diet, which he has tolerated well. The patient will be discharged today on 06/25/2018. He will be instructed to use his walker to ambulate. He is doing physical therapy at [facility] on an outpatient basis. He can weightbear as tolerated on the right leg. We will ask him to leave the dressing intact. He will be on Xarelto for DVT prophylaxis as well as tramadol for the pain. I will see him in my office in 2 days. Chris Kang MD DR: MERLY/[facility]# [id number]
== END 2018-06-25 15:25 | disposition home or self-care (01) | DRG 470 ==
LOC: MS 16:33 → EDPENDDISTM 06-25 12:48
PROVIDERS: ADMIT Orthopaedic Surgery; ATTEND Orthopaedic Surgery
PROC: 0SRC0J9 Replacement of Right Knee Joint with Synthetic Substitute, Cemented, Open Approach (ICD-10-PCS; principal; 2018-06-19 14:12)
DX: M17.11 Unilateral primary osteoarthritis, right knee (principal); E87.1 Hypo-osmolality and hyponatremia; D62 Acute posthemorrhagic anemia; M21.371 Foot drop, right foot; I10 Essential (primary) hypertension; N40.0 Benign prostatic hyperplasia without lower urinary tract symptoms; J44.9 Chronic obstructive pulmonary disease, unspecified; G62.9 Polyneuropathy, unspecified; K21.9 Gastro-esophageal reflux disease without esophagitis; Z90.49 Acquired absence of other specified parts of digestive tract; Z90.79 Acquired absence of other genital organ(s); Z72.0 Tobacco use; Z93.0 Tracheostomy status; Z86.12 Personal history of poliomyelitis; Z82.0 Family history of epilepsy and other diseases of the nervous system; Z82.49 Family history of ischemic heart disease and other diseases of the circulatory system
CPT/HCPCS: 27447; 36415; 64447; 64450; 64999; 70450; 71045; 73560; 80048; 80051; 80053; 81000; 81002; 83935; 84300; 85025; 85027; 87070; 93005; 94640; 97161; 97165; 97530; A4217; C1776; G0378; J0132; J0690; J1100; J1170; J1885; J1940; J2001; J2405; J2710; J2795; J3490; J7030; J7050; J7120; J7613; J7620; 97110-GP; 97116-GP; 97535-GO; 97760-GP; J8499

== ENCOUNTER → 2021-05-07 | Day surgery (SDC) | payer MEDICARE, OTHER ==
[2021-05-06 14:29] VITALS: BP 137/66
[2021-05-06 14:59] LABS: BASOPHIL % 0.2 % (0.0-0.2); EOSINOPHIL # 0.2 10^3/uL (0.0-0.2); EOSINOPHIL % 1.6 % (0.0-5.0); LYMPHOCYTES # 1.55 10^3/uL1 (1.0-4.8); LYMPHOCYTES % 16.4 % (24.0-44.0); MEAN CORP HGB 30.8 pg (26-34); MONOCYTES # 0.9 10^3/uL (0.3-0.8); MONOCYTES % 9.6 % (5.0-12.0); NEUTROPHIL # 6.8 10^3/uL (1.8-7.7); PLATELET COUNT 186 10^3/uL (150-400); RED CELL DISTRIBUTION WIDTH 12.5 % (11.5-14.5)
--- NOTE | 2021-05-06 15:00 | PCM.EKG ---
[facility] Test Date: 2021-05-06 Test Time: 14:36:09 Pat Name: THEA ARTIS Department: Room: Gender: M Nursing Unit Coordinator: AWLVN : 1945 Requested By: STEVAN MCCARTHY Order Number: [id number] Reading MD: Measurements Intervals [place] Rate: 69 P: 44 DE: 194 QRS: 28 QRSD: 80 T: 17 QT: 362 QTc: 387 Interpretive Statements Normal sinus rhythm Compared to ECG 06/14/2018 11:15:49 No significant changes Please click the below link to view image of tracing.
[2021-05-06 15:14] LABS: CARBON DIOXIDE 24.8 mmol/L (20.0-32)
[~2021-05-07] VITALS: Ht 175.3 cm; Wt 97.5 kg
[~2021-05-07] MED LIST changes: -ANCEF ONE; +ATIVAN ONE; -DECADRON ONE; -DILAUDID ONE; -DIPRIVAN IV ONE; +HYDR12.58 PO; +LACTATED RINGERS 1,000 ML IV SCH; +LACTATED RINGERS 1,000 ML ONE; -LIDOCAINE 2% VIAL ONE; -LISI-414 PO; +LISI5TAB18 PO; -NAROPIN 0.2% 40 MG/20 ML VIAL ONE; -NEOSTIGMINE ONE; -NEURONTIN ONE; -NS 100ML 100 ML IV ONE; -NS 250ML 250 ML IV ONE; -NS 3000ML IRR IR ONE; -PRECEDEX IV ONE; +RIVA10TA PO; -SENSORCAINE 0.5% VIAL ONE; -SODIUM CHLORIDE IR ONE; +SODIUM CHLORIDE IRR BOTTLE IR ONE; +SUBLIMAZE ONE; -TORADOL ONE; +TRAM50TA PO; -TRANEXAMIC ACID IV ONE; -TYLENOL PO ONE; -TYLENOL PO SCH; +XYLOCAINE 1%-EPI 1:100,000 ONE; -ZEMURON IV ONE; -ZOFRAN ONE
[2021-05-07 07:30] VITALS: BP 132/76
[2021-05-07 09:47] VITALS: BP 153/77
[2021-05-07 09:49] VITALS: BP 151/75
[2021-05-07 10:08] VITALS: BP 150/81
--- NOTE | 2021-05-07 10:09 | OPH ---
DATE OF SURGERY: 05/07/2021 DICTATOR NAME: Chris Kang MD PREOPERATIVE DIAGNOSIS: Left carpal tunnel syndrome. POSTOPERATIVE DIAGNOSIS: Left carpal tunnel syndrome. OPERATIVE PROCEDURE: Left carpal tunnel release. SURGEON: Chris Kang MD ANESTHESIA: Local plus IV sedation. TOURNIQUET TIME: 11 minutes at 300 mmHg. DRAINS: None. BLOOD LOSS: 10 mL. DESCRIPTION OF INDICATIONS: This is a 75-year-old male with a several-year history of numbness and paresthesias about the median nerve distribution of his left hand. He complains of night pain as well as weakness. He drops things frequently and has difficulty driving and gripping. The patient had a positive median nerve compression test as well as a positive Phalen's test and a positive Tinel's sign about the carpal tunnel. He was noted to have some atrophy about the thenar eminence. The patient was taken to the operating room today for left carpal tunnel release. DESCRIPTION OF PROCEDURE: The patient was placed on the operating table in a supine position. The patient was given some IV sedation and the base of the palm was injected with 10 mL of 1% lidocaine with epinephrine. The left upper extremity was then sterilely prepped and draped. The tourniquet was inflated to 300 mmHg. A longitudinal incision was made about the base of the palm. Incision was taken through the skin and the subcutaneous tissue down to the palmar fascia. The palmar fascia was opened proximally and a Barton elevator was passed beneath the transverse carpal ligament. The transverse carpal ligament was then released throughout its entirety, both proximally and distally. The nerve and flexor tendons were visualized and there was no iatrogenic damage. The wounds were then copiously irrigated and closed with a 3-0 Ethilon in a horizontal mattress method. Compressive dressing was applied and the tourniquet was released. He was sent to recovery in a stable condition. Chris Kang MD DR: SIMON TID: [id number] RECEIPT: [id number]
[2021-05-07 10:23] VITALS: BP 168/92
[2021-05-07 10:39] VITALS: BP 141/79
== END | disposition home or self-care (01) ==
LOC: SDC 07:30
PROVIDERS: ATTEND Orthopaedic Surgery
DX: G56.02 Carpal tunnel syndrome, left upper limb (principal); I10 Essential (primary) hypertension; Z90.49 Acquired absence of other specified parts of digestive tract; Z90.89 Acquired absence of other organs; Z98.890 Other specified postprocedural states; Z87.891 Personal history of nicotine dependence; Z82.0 Family history of epilepsy and other diseases of the nervous system
CPT/HCPCS: 36415; 64721; 80053; 85025; 93005; A4217; J2060; J3010; J7120

== ENCOUNTER → 2021-12-03 | Outpatient (CLI) | payer MEDICARE, OTHER ==
[~2021-12-03] MED LIST changes: -ATIVAN ONE; -LACTATED RINGERS 1,000 ML IV SCH; -LACTATED RINGERS 1,000 ML ONE; -SODIUM CHLORIDE IRR BOTTLE IR ONE; -SUBLIMAZE ONE; -XYLOCAINE 1%-EPI 1:100,000 ONE
== END | disposition home or self-care (01) ==
LOC: NPLAB 17:42
PROVIDERS: ATTEND Student in an Organized Health Care Education/Training Program
DX: R31.29 Other microscopic hematuria (principal); Z68.32 Body mass index [BMI] 32.0-32.9, adult
CPT/HCPCS: 87086